=== PATIENT | male | born 1935 | race Caucasian/White ===

== ENCOUNTER 2017-03-09 08:45 | Inpatient (IN) ==
[2017-03-09] MEDS ORDERED: CLINDAMYCIN INJ 600 MG in PREMIX 1 EACH IV STA (09:32)
[2017-03-09] MEDS ORDERED: methylPREDNISolone SOD SUC 125 MG/2 ML VIAL IV STA (09:32)
[2017-03-09] MEDS ORDERED: ONDANSETRON 4 MG/2 ML VIAL IV STA (09:32)
[2017-03-09] MEDS ORDERED: LACTATED RINGERS 1,000 ML IV ONE (09:32)
[2017-03-09] MEDS ORDERED: DILTIAZEM 50 MG/10 ML VIAL IV STA (09:32)
[2017-03-09] MEDS ORDERED: PANTOPRAZOLE 40 MG VIAL IV STA (09:37)
[2017-03-09] MEDS ORDERED: LEVALBUTEROL 0.63 MG/3 ML NEB RESP TX STA (09:37)
--- NOTE | 2017-03-09 09:37 | EKG Report ---
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
[2017-03-09 09:48] LABS: Basophils % 0.2 % (0.0-0.8); Eosinophils % 0.1 % (0.00-10.9); Hematocrit 29.5 VOL% (42.0-52.0); Hemoglobin 9.4 GM/DL (14.0-18.0); Immature Granulocytes % 0.9 %; Immature Granulocytes Absolute 0.09 #; Lymphocytes # 1.2 10*3/uL (1.4-4.0); Lymphocytes % 12.2 % (21.2-54.2); Mean Corpuscular HGB Conc 31.9 GM/DL (32-36); Mean Corpuscular Hemoglobin 29 PG (27-34); Mean Corpuscular Volume 90.2 FL (87-102); Mean Platelet Volume 11.6 FL (9.6-12.0); Monocytes # 1.1 10*3/uL (0.11-0.8); Monocytes % 10.7 % (1.7-12.7); NRBC # 0.12 10*3/uL; Neutrophils # 7.7 10*3/uL (1.4-7.4); Neutrophils % 75.9 % (38.7-73.9); Platelet Count 258 T/CUMM (130-400); Red Blood Count 3.27 MC/CUMM (3.8-5.5); Red Cell Distribution Width 17.1 % (9.3-17.3); White Blood Count 10.1 T/CUMM (4-12)
--- NOTE | 2017-03-09 09:49 | Emergency Department Note ---
Yuriy Barajas Hilary, am scribing for, and in the presence of, Ramone Sun MD 09:40. Corinne Barajas Charles R, MD, personally performed the services described in this documentation, ascribed by Sindhu Yan in my presence, and it is both accurate and complete . Arrival - Arrival Chief Complaint: Shortness of Breath Stated Complaint: chest pain/ca pt ED Nursing Triage Note: chest pain with SOB - rapid heart rate onset yesterday - pt was sent from [facility] center - pt was there for radaition for throat CA this am and was sent to ER for evaluation Mode of Arrival: Wheelchair Limitations: No Limitations Source: Patient, Significant other (), RN Notes Reviewed Time Seen by Provider: 03/09/17 09:22 - History of Present Illness HPI Narrative: Pt is a 81 y/o black male presenting to the ED with c/o SOB which onset around 1700 lastnight. Pts confirms upper epigastric pain, nausea, melena and SOB. Pts said he had a Heart attack in April and had a stent put in, he also has a peg tube and esophageal cancer. No other complaints or problems stated in the ED. Onset (ago): day(s) Allergies/Adverse Reactions: Allergies Allergy/AdvReac Type Severity Reaction Status Date / Time No Known Allergies Allergy Verified 02/25/16 10:37 Home Medications: Home Medications Medication Instructions Recorded Confirmed Type Aspirin EC Tab 81 mg PO DAILY #30 tablet 04/27/16 01/30/17 Rx Metoprolol Tartrate Tab [Lopressor 25 mg PO BID #60 tablet 04/27/16 01/30/17 Rx Tab] Ticagrelor [Brilinta] 90 mg PO BID #60 tablet 04/27/16 01/30/17 Rx Cilostazol 50 mg PO BID 01/30/17 01/30/17 History Review of System - Review of System 12 point system: reviewed and no additional remarkable complaints except as stated - Review of System Constitutional: Absent: fever Cardiovascular: Absent: chest pain Gastrointestinal: Present: abdominal pain, nausea, melena Medical,Surgical,& Family Hx - Medical History Cardio: History of: CAD, [place] (04/25/16 with Synergy stents to the RCA X 2), PVD ( left BKA) HEENT: History of: Oral Cancer (pharyngeal) Endocrine: History of: Dyslipidemia Respiratory: History of: Respiratory Problems (Throat CA with occasional throat edema from radiation) Musculoskeletal: History of: Amputation (LEFT ABOVE KNEE), Musculoskeletal Problems (Left AKA) Hematology: No history of: Blood Transfusion Reaction Other: History of: Cancer (Throat) - Surgical History Cardiac Surgeries: Sugical HX of: Cardiac Catheterization (04/25/16) Thoracic Surgeries: Patient denies;: Organ Transplant, Lobectomy Abdominal Surgeries: Surgical HX of: Hernia Repair Orthopedic Surgeries: Surgical HX of;: Total Hip Replacement (RIGHT) - Family History Family History: Reports;: Family Cancer (Brother with pancreatic), Family Hypertension (Sister) Denies;: Family Anesthesia Reaction, Family Diabetes, Family Heart Disease, Family Psychiatric Problems, Family Stroke - Social History Smoking Status: Never smoker Frequency of Alcohol Use: None Type of Drug Use: None Exam Vital Signs: Vital Signs Temperature 98.0 F 03/09/17 08:55 Pulse Rate 129 H 03/09/17 10:15 Respiratory Rate 24 03/09/17 10:15 Blood Pressure 124/64 03/09/17 10:15 O2 Sat by Pulse Oximetry 100 03/09/17 10:15 - General General appearance: alert (Toxic, ill appearing), lethargic, cachectic, other - Head Head exam: Present: atraumatic, normocephalic - Eye Eye exam: Absent: normal appearance (Sunken orbitals, Pale conjuctival) - ENT ENT exam: Present: mucous membranes dry, other (Poor Dentation). Absent: mucous membranes moist - Neck Neck exam: Present: full ROM, trachea midline, other (JVD Distention). Absent: tenderness - Chest Chest inspection: Present: symmetric chest wall rise. Absent: tenderness - Respiratory Respiratory exam: Present: rhonchi (Bilateral Rhonci) - Cardiovascular Cardiovascular exam: Present: tachycardia, irregular rhythm - Abdominal Exam Abdominal exam: Present: soft, distention (Bloated), tenderness (Epigastric tenderness), diminished bowel sounds, other (Peg tube has coffee ground emesis in it) - Rectal Exam Rectal exam: Present: normal rectal tone (Fair rectal tone), heme (+) stool - Extremities Exam Extremities exam: Present: full ROM (Has a left AKA). Absent: tenderness - Back Exam Back exam: Present: full ROM. Absent: tenderness - Neurological Exam Neurological exam: Present: alert, oriented X3, CN II-XII intact. Absent: motor sensory deficit - Psychiatric Psychiatric exam: Present: normal affect, normal mood - Skin Skin exam: Present: warm, dry, intact, normal color. Absent: rash Course - Reevaluation(s) Reevaluation #1: Patient has actually done better with fluid hydration Time: 10:47 - Consultations Consultation #1: Dr. Unger will admit the patient. He said not to place patient in the ICU he will take care of him on the oncology floor Time: 10:47 Results - Labs CBC & BMP: 03/09/17 09:31 03/09/17 09:31 Lab Results: I have reviewed the patients labs Labs: Laboratory Tests 03/09/17 03/09/17 09:31 09:31 WBC 10.1 RBC 3.27 L Hgb 9.4 L Hct 29.5 L MCHC 31.9 L Neut % (Auto) 75.9 H Lymph % (Auto) 12.2 L Neut # (Auto) 7.7 H Lymph # (Auto) 1.2 L [place] # (Auto) 1.1 H Urine Color Yellow Urine Appearance Clear Urine Urobilinogen < 2.0 H Laboratory Tests 03/09/17 10:05 ABG pH 7.487 H ABG pCO2 23.6 L ABG pO2 147.0 H ABG Total CO2 16.8 L ABG Base Excess -4.6 L Disposition Clinical Impression: Laryngeal cancer, Hypernatremia, Acute dehydration, Acute dyspnea, COPD ( chronic obstructive pulmonary disease), Failure to thrive, GI bleed, Anemia, Acute blood loss anemia, Coronary artery disease, Chest pain, PVD (peripheral vascular disease) Case discussed with: patient, patient's family Disposition: Still a Patient Condition: Guarded Time of Disposition: 10:47
[2017-03-09] MEDS ORDERED: methylPREDNISolone SOD SUC 125 MG/2 ML VIAL ONE (09:50)
[2017-03-09] MEDS ORDERED: ONDANSETRON 4 MG/2 ML VIAL ONE (09:50)
[2017-03-09] MEDS ORDERED: PANTOPRAZOLE 40 MG VIAL IV ONE (09:50)
[2017-03-09] MEDS ORDERED: DILTIAZEM 50 MG/10 ML VIAL IV ONE (09:50)
[2017-03-09 09:53] LABS: Apearance,Urine CLEAR (Clear); Bilirubin,Urine Negative (Negative); Blood, Urine Small mg/dL (Negative); Glucose,Urine (UA) Negative (Negative); Ketones,Urine Negative (Negative); Nitrite,Urine Negative (Negative); Protein,Urine Negative; RBC,Urine 3 /HPF (0-4); Urine Color Yellow (Yellow); Urine Specific Gravity 1.013 (1.001-1.035); Urine Urobilinogen < 2.0 EU/DL (0.2-1.0); WBC,Urine 2 /HPF (0-6)
[2017-03-09 09:56] LABS: PT Patient Result 10.9 SECS
[2017-03-09 10:15] LABS: ABG Base Excess -4.6 MMOL/L (-2.5-2.5); ABG HCO3 20.6 MMOL/L (20-26); ABG Oxygen Saturation 99.3 % (95-100); ABG PCO2 23.6 MM HG (35-48); ABG PH 7.487 (7.35-7.45); ABG TCO2 16.8 MMOL/L (23-27)
[2017-03-09 10:18] LABS: Band Neutrophils 1 % (0-10); Hypochromasia 1+; Lymphocytes 15 % (20-55); Ovalocytes Slight; Platelet Estimate Adequate; Segmented Neutrophils 81 % (50-85); Total Cells Counted 100
[2017-03-09 10:19] LABS: Microcytosis Slight
--- NOTE | 2017-03-09 10:21 | XRay Report ---
XR abdomen complete w decub Indication: Epigastric abdominal pain. Comparison: None. Technique: Supine AP abdomen as well as left lateral decubitus image of the abdomen was submitted. Findings: Lung bases are clear. No free intraperitoneal air is suggested. No organomegaly suggested. The bowel gas pattern demonstrates no evidence of acute pathology. Bones and soft tissues demonstrate no evidence of acute pathology. Gastrostomy tube is present. Previous right hip arthroplasty is demonstrated. Iliac artery stent is present on the right. Moderately advanced degenerative changes of the left femoral acetabular joint are present. Renal vascular calcifications are suggested bilaterally. Impression: 1. No active process is demonstrated within the abdomen or pelvis. Other findings as detailed. 03/09/2017 10:17 AM PROCEDURE INTERPRETED AT [facility] DEPARTMENT OF RADIOLOGY Final Report Signed by: Dr. Mich Manuel
--- NOTE | 2017-03-09 10:21 | XRay Report ---
XR chest 1V Indication: Shortness of breath Comparison: Chest x-ray 02/13/2017 Technique: Portable AP chest was performed. Findings: The heart size appears normal in size, stable. Right-sided venous access device is stable. The mediastinal contour and hilar structures demonstrate no significant abnormalities. Lungs demonstrate interval partial clearing of the left as well as right lung base. Minimal residual stranding overlying the mid left hemidiaphragm is nonspecific. Lungs otherwise are clear. Bones and soft tissues demonstrate no evidence of acute pathology. Impression: 1. Improved appearance of the left lung base. Interval partial clearing additionally on the right is demonstrated. 03/09/2017 10:18 AM PROCEDURE INTERPRETED AT [facility] DEPARTMENT OF RADIOLOGY Final Report Signed by: Dr. Mich Manuel
[2017-03-09 10:25] LABS: Lactic Acid 5.5 MMOL/L (0.4-2.0)
[2017-03-09 10:27] LABS: Alanine Aminotransferase 44 U/L (16-61); Albumin 2.6 G/DL (3.4-5.0); Alkaline Phosphatase 69 U/L (45-117); Aspartate Amino Transferase 31 U/L (0-37); Bilirubin,Total < 0.39 MG/DL (0.2-1.0); Blood Urea Nitrogen 130 MG/DL (7-18); Calcium 9.5 MG/DL (8.5-10.1); Glucose 229 MG/DL (74-106); Magnesium 2.7 MG/DL (1.8-2.4); Osmolality,Calculated 347.9 MOS/KG (273-304); Potassium 4.9 MMOL/L (3.5-5.1); Sodium 151 MMOL/L (136-145); Total Protein 6.8 G/DL (6.4-8.3); Troponin I Only 0.033 NG/ML (0.00-0.045)
[2017-03-09] MEDS ORDERED: CLINDAMYCIN INJ 50 ML IV ONE (11:57)
[2017-03-09] MEDS ORDERED: chlorproMAZINE INJ 25 MG in SODIUM CHLORIDE 0.9% 100 ML IV PRN (12:39)
[2017-03-09] MEDS ORDERED: TEMAZEPAM 7.5 MG CAPSULE PO PRN (12:39)
[2017-03-09] MEDS ORDERED: ACETAMINOPHEN 325 MG TABLET PO PRN (12:39)
[2017-03-09] MEDS ORDERED: MYLANTA/LIDO VISC 2:1 300 ML BOTTLE SWISH/SPIT PRN (12:39)
[2017-03-09] MEDS ORDERED: chlorproMAZINE 25 MG TABLET PO PRN (12:39)
[2017-03-09] MEDS ORDERED: SODIUM CHLORIDE 0.9% 1,000 ML IV SCH (12:39)
[2017-03-09] MEDS ORDERED: LACTULOSE 20 GM/30 ML UDCUP PO PRN (12:39)
[2017-03-09] MEDS ORDERED: LOPERAMIDE 2 MG CAPSULE PO PRN ×2 (12:39)
[2017-03-09] MEDS ORDERED: PROMETHAZINE INJ 25 MG in SODIUM CHLORIDE 0.9% 50 ML IV PRN (12:39)
[2017-03-09] MEDS ORDERED: ALUMINUM/MAGNES/SIMETH MAX STR 30 ML UDCUP PO PRN (12:39)
[2017-03-09] MEDS ORDERED: BENZTROPINE 2 MG/2 ML AMP IV PRN (12:39)
[2017-03-09] MEDS ORDERED: ONDANSETRON 4 MG/2 ML VIAL IV PRN (12:39)
[2017-03-09] MEDS ORDERED: MAGNESIUM HYDROXIDE SUSP 30 ML UDCUP PO PRN (12:39)
[2017-03-09] MEDS ORDERED: traMADol 50 MG TABLET PO PRN (12:39)
[2017-03-09] MEDS ORDERED: chlorproMAZINE INJ 50 MG in SODIUM CHLORIDE 0.9% 100 ML IV PRN (12:39)
[2017-03-09] MEDS ORDERED: ALBUTEROL/IPRATROPIUM 3 ML NEB RESP TX PRN (12:39)
[2017-03-09] MEDS ORDERED: MYLANTA/LIDO VISC 2:1 300 ML BOTTLE SWISH/SWAL PRN (12:39)
[2017-03-09] MEDS ORDERED: diphenhydrAMINE CAP 25 MG CAPSULE PO PRN (12:39)
[2017-03-09] MEDS ORDERED: ALPRAZolam 0.25 MG TABLET PO PRN (12:39)
[2017-03-09] MEDS ORDERED: guaiFENesin 200 MG/10 ML UDCUP PO PRN (12:39)
--- NOTE | 2017-03-09 13:21 | EKG Report ---
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
[2017-03-09] MEDS ORDERED: GLUCAGON 1 MG VIAL IM PRN (14:35)
[2017-03-09] MEDS ORDERED: DEXTROSE 50% 25 GM/50 ML VIAL IV PRN (14:35)
[2017-03-09 14:50] LABS: Alanine Aminotransferase 40 U/L (16-61); Albumin 2.5 G/DL (3.4-5.0); Alkaline Phosphatase 62 U/L (45-117); Aspartate Amino Transferase 27 U/L (0-37); Bilirubin,Total < 0.39 MG/DL (0.2-1.0); Blood Urea Nitrogen 126 MG/DL (7-18); Calcium 9.2 MG/DL (8.5-10.1); Glucose 137 MG/DL (74-106); Magnesium 2.7 MG/DL (1.8-2.4); Osmolality,Calculated 343.7 MOS/KG (273-304); Potassium 5.3 MMOL/L (3.5-5.1); Sodium 152 MMOL/L (136-145); Total Protein 6.5 G/DL (6.4-8.3); Troponin I Only 0.042 NG/ML (0.00-0.045); Uric Acid 9.6 MG/DL (3.5-7.2)
[2017-03-09 14:59] LABS: Basophils % 0.1 % (0.0-0.8); Hematocrit 20.2 VOL% (42.0-52.0); Immature Granulocytes % 1.1 %; Immature Granulocytes Absolute 0.14 #; Lymphocytes # 0.7 10*3/uL (1.4-4.0); Lymphocytes % 5.6 % (21.2-54.2); Mean Corpuscular HGB Conc 31.7 GM/DL (32-36); Mean Corpuscular Hemoglobin 29 PG (27-34); Mean Platelet Volume 11.2 FL (9.6-12.0); Monocytes # 0.3 10*3/uL (0.11-0.8); Monocytes % 2.7 % (1.7-12.7); NRBC # 0.12 10*3/uL; Neutrophils # 11.2 10*3/uL (1.4-7.4); Neutrophils % 90.5 % (38.7-73.9); Platelet Count 259 T/CUMM (130-400); Red Blood Count 2.22 MC/CUMM (3.8-5.5); Red Cell Distribution Width 16.9 % (9.3-17.3); White Blood Count 12.3 T/CUMM (4-12)
[2017-03-09 15:09] LABS: Hemoglobin 6.4 GM/DL (14.0-18.0)
--- NOTE | 2017-03-09 16:00 | Oncology History&Physical ---
History of Present Illness History of present illness: Mr. Krueger is a 81 year old male admitted with renal failure and severe symptomatic anemia complicating laryngeal Ca. 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 He has been on cis-eyak, Taxotere and 5-FU which were given on or about January 26. He presented to the emergency room today with acute renal failure and mild leukopenia. He should have been on this for by now and he is not. He received chemotherapy last week consisting of Taxotere, 5-FU and cis- eyak. The dose is included: Taxotere 135 mg IV on day 1 Cis-eyak 135 mg IV on day 1 5-FU 1350 mg IV over 22 hours daily for 3 consecutive days. When he was admitted in January of this year I made the decision to discontinue chemotherapy and proceed to radiation. He is currently receiving radiation therapy. Prior to institution of chemotherapy his serum creatinine was 0.8. It worsened with his first dose of chemotherapy and this was 1 of the reasons why discontinued chemotherapy and went to radiation. The other reason was that he had extremely severe stomatitis and I did not think that he would benefit from further chemotherapy. Past medical history: Allergies: He has no known allergies. Additional past medical history includes a history of bladder cancer, myocardial infarction in April 2016, GERD and hyperlipidemia. He has had previous radiation also. Past medical history is positive for laryngeal cancer and cancer of the vocal cords. He was initially diagnosed as having laryngeal cancer in February 2000 from a biopsy of his vocal cord. 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 He did not have a biopsy of this recurrence. Clinically it was recurrent cancer according to Dr. Murray. I presented his case to tumor board. We had a Mediport catheter placed and he was started on the chemotherapy of mentioned. Social history: He smokes a pack of cigarettes daily. He is . Family history is positive for pancreatitis and his brother but negative for pancreatic cancer.. Review of systems: Constitutional: Negative for fever or chills. HEENT: Positive review of systems includes a history of recent onset of dysphagia and odynophagia as well as hoarseness. He already had dysphagia and odynophagia with these worsened. Eyes: Positive for cataract surgery bilaterally. Pulmonary: Positive for COPD and cough without hemoptysis. Cardiovascular: Positive for myocardial infarct and coronary bypass GI: Negative for hepatitis or liver or pancreatic disease. No history of GI malignancies or upper or lower GI bleed. : Negative for kidney stones or kidney infections or hematuria. Musculoskeletal: No history of significant arthritis but the patient has undergone an [id number] amputation of the left leg. Neurologic: Negative for seizures, cold convulsions or paralysis. Hematologic: Negative for blood dyscrasias, bleeding disorders, anemia or leukemia. Lymphatic: Negative for primary lymphatic malignancy or chronically or acutely enlarged lymph nodes. Psychiatric: Negative for acute psychoses or psychiatric illness. Physical examination: General: The patient is acutely and chronically ill. Eyes: Normal lids and conjunctivae. ENT: His oral mucosa is slightly atrophic but no longer raw. His dentition is extremely poor. Most of his teeth are missing. His trachea is midline. He has no hearing deficit. Neck: Thyroid normal. Trachea normal. Pulmonary: Breath sounds are coarse throughout without rubs, rales or rhonchi. There is symmetrical unlabored chest motion with respiration. Cardiovascular: His heart rhythm is regular without murmur, gallop or rub. He has tachycardia without irregular rhythm. There is no jugular venous distention , clubbing or cyanosis. Abdomen. He has a PEG tube in place that has coffee grounds in it. There is no ascites and I palpate no masses. There is only moderate to mild tenderness without distention. Musculoskeletal: He has arthritis in his hands without focal muscle atrophy or bone or joint deformity. He has severe generalized muscle weakness. Neurologic: Cranial nerves II through XII are intact. There are no focal neurologic deficits. Psychiatric: He has not been fully oriented for quite some time but I does find no agitation or severe confusion or combativeness. Impression: #1: Acute renal failure due to acute dehydration #2: Severe anemia requiring blood transfusion #3: Laryngeal carcinoma #4: Prior history of laryngeal carcinoma that was probably is not the same tumor. #5: COPD #6:Coronary artery disease post CABG #7: Prolonged prothrombin time during last admission probably due to vitamin K deficiency #8: Emaciation, cachexia and malnutrition #9: Hypomagnesemia by history Home Medications Medication Instructions Recorded Confirmed Type Aspirin EC Tab 81 mg PO DAILY #30 tablet 04/27/16 03/09/17 Rx Metoprolol Tartrate Tab [Lopressor 25 mg PO BID #60 tablet 04/27/16 03/09/17 Rx Tab] Ticagrelor [Brilinta] 90 mg PO BID #60 tablet 04/27/16 03/09/17 Rx Cilostazol 50 mg PO BID 01/30/17 03/09/17 History Allergies Allergy/AdvReac Type Severity Reaction Status Date / Time No Known Allergies Allergy Verified 02/25/16 10:37 Medical,Surgical,& Family Hx - Medical History Cardio: History of: CAD, [place] (04/25/16 with Synergy stents to the RCA X 2), PVD ( left BKA) HEENT: History of: Oral Cancer (pharyngeal) Endocrine: History of: Dyslipidemia Respiratory: History of: Respiratory Problems (Throat CA with occasional throat edema from radiation) Musculoskeletal: History of: Amputation (LEFT ABOVE KNEE), Musculoskeletal Problems (Left AKA) Hematology: No history of: Blood Transfusion Reaction Other: History of: Cancer (Throat) - Surgical History Cardiac Surgeries: Sugical HX of: Cardiac Catheterization (04/25/16) Thoracic Surgeries: Patient denies;: Organ Transplant, Lobectomy Abdominal Surgeries: Surgical HX of: Hernia Repair Orthopedic Surgeries: Surgical HX of;: Total Hip Replacement (RIGHT) - Family History Family History: Reports;: Family Cancer (Brother with pancreatic), Family Hypertension (Sister) Denies;: Family Anesthesia Reaction, Family Diabetes, Family Heart Disease, Family Psychiatric Problems, Family Stroke - Social History Smoking Status: Former smoker Frequency of Alcohol Use: None Type of Drug Use: None Exam - Constitutional Vitals: Period Temp Pulse Resp BP Sys/Keith Pulse Ox Last 24 Hr 97.0 F 139 20 109/65 93 Results - Labs CBC & BMP: 03/09/17 14:47 03/09/17 13:40 Quality Measures - VTE Contraindication to Pharmacological VTE Prophylaxis: Active Bleeding
[2017-03-09] MEDS: DEXT 5% NACL 0.45% KCL 20 MEQ 20 MEQ/1,000 ML BAG IV SCH (17:07)
[2017-03-09] MEDS: ASPIRIN EC 81 MG TABLET PO SCH (17:10)
[2017-03-09] MEDS: methylPREDNISolone SOD SUC 40 MG/1 ML VIAL IV SCH (17:10)
[2017-03-09 17:24] LABS: Band Neutrophils 2 % (0-10); Lymphocytes 3 % (20-55); Platelet Estimate Normal; Segmented Neutrophils 92 % (50-85); Total Cells Counted 100
[2017-03-09] MEDS ORDERED: METOPROLOL TARTRATE 25 MG TABLET PO SCH (21:00)
[2017-03-09] MEDS ORDERED: CILOSTAZOL 50 MG TABLET PO SCH (21:00)
[2017-03-09] MEDS ORDERED: TICAGRELOR 90 MG TABLET PO SCH (21:00)
[2017-03-09] MEDS: CILOSTAZOL 50 MG TABLET PO SCH (22:27)
[2017-03-09] MEDS: METOPROLOL TARTRATE 25 MG TABLET PO SCH (22:27)
[2017-03-09] MEDS: TICAGRELOR 90 MG TABLET PO SCH (22:27)
[2017-03-10] MEDS: methylPREDNISolone SOD SUC 40 MG/1 ML VIAL IV SCH ×3 (02:36→17:38)
[2017-03-10] MEDS: DEXT 5% NACL 0.45% KCL 20 MEQ 20 MEQ/1,000 ML BAG IV SCH ×5 (05:40→18:56)
[2017-03-10 07:03] LABS: Basophils % 0.1 % (0.0-0.8); Hematocrit 31.7 VOL% (42.0-52.0); Immature Granulocytes % 1.9 %; Immature Granulocytes Absolute 0.22 #; Lymphocytes # 0.7 10*3/uL (1.4-4.0); Lymphocytes % 6.3 % (21.2-54.2); Mean Corpuscular HGB Conc 32.5 GM/DL (32-36); Mean Corpuscular Hemoglobin 29 PG (27-34); Mean Platelet Volume 11.8 FL (9.6-12.0); Monocytes # 0.6 10*3/uL (0.11-0.8); NRBC # 0.35 10*3/uL; Neutrophils # 10.1 10*3/uL (1.4-7.4); Neutrophils % 86.7 % (38.7-73.9); Platelet Count 220 T/CUMM (130-400); Red Cell Distribution Width 16.7 % (9.3-17.3); White Blood Count 11.6 T/CUMM (4-12)
[2017-03-10 07:15] LABS: PT Patient Result 10.9 SECS
--- NOTE | 2017-03-10 07:19 | XRay Report ---
XR chest 1V portable Indication: Shortness of breath Comparison: Chest x-ray 03/09/2017 Technique: Portable AP chest was performed. Findings: The heart size appears within normal limits. Right-sided venous access device is stable. The mediastinal contour and hilar structures demonstrate no significant abnormalities. Minimal interstitial stranding overlying the left hemidiaphragm is nonspecific in appearance and may in part reflect atelectasis or scarring. Minimal elevation of the left hemidiaphragm is present. Bones and soft tissues demonstrate no evidence of acute pathology. Mild scoliotic deformity of the thoracic spine is stable. Impression: 1. No evidence of acute pathology. 03/10/2017 7:16 AM PROCEDURE INTERPRETED AT [facility] DEPARTMENT OF RADIOLOGY Final Report Signed by: Dr. Mich Manuel
[2017-03-10 07:20] LABS: Hemoglobin 10.3 GM/DL (14.0-18.0); Red Blood Count 3.56 MC/CUMM (3.8-5.5)
--- NOTE | 2017-03-10 07:22 | Oncology Progress Note ---
Oncology Subjective PN Interval history: Mr. Krueger was admitted with dehydration, anemia and worsening renal failure due to poor oral intake as result of laryngeal carcinoma for which she is currently undergoing radiation therapy. He received blood transfusions yesterday. His CBC this morning includes a white cell count of 11,600 with a hemoglobin of 10.3 and a platelet count of 220,000. I will order comprehensive metabolic profile this morning. It is now. We checked pro time this morning and it is normal. I am still awaiting return of the comprehensive metabolic profile today. Lab work today includes a serum creatinine of 2.9 which is actually slightly higher than it was on admission. His urea nitrogen level is 132 is well. We are hydrating him aggressively. His sodium is 154 with a potassium is slightly high at 5.2. His hemoglobin is 10.3 today after transfusion. I think of already mentioned this. He has a normal white cell count and normal platelet count. We will pick radiation therapy up today. We will continue hydration through the weekend and hope to discharge him next week. His PEG tube contains coffee-ground emesis and I am consulted GI. On physical examination his lungs are clear. His heart sounds are normal. His voice is hoarse. He has no abdominal distention but the PEG tube still has coffee-ground emesis. Cranial nerves II through XII are intact. I failed to mention on his admission that he has a left AKA amputation. Exam - Constitutional Vitals: Period Temp Pulse Resp BP Sys/Keith Pulse Ox Last 24 Hr 96.7 F-99 F 107-139 16-20 109-162/57-80 93-99 Results - Labs CBC & BMP: 03/10/17 06:07 03/10/17 06:07 Quality Measures - VTE Contraindication to Pharmacological VTE Prophylaxis: Active Bleeding
[2017-03-10 07:39] LABS: Calcium 9.4 MG/DL (8.5-10.1); Magnesium 2.6 MG/DL (1.8-2.4); Osmolality,Calculated 350.6 MOS/KG (273-304); Phosphorous 3.7 MG/DL (2.5-4.9); Potassium 5.3 MMOL/L (3.5-5.1); Prealbumin 30.2 MG/DL (20-40)
[2017-03-10 07:41] LABS: Albumin 2.6 G/DL (3.4-5.0); Bilirubin,Total 0.6 MG/DL (0.2-1.0); Calcium 9.3 MG/DL (8.5-10.1); Osmolality,Calculated 352.4 MOS/KG (273-304); Potassium 5.2 MMOL/L (3.5-5.1); Total Protein 6.3 G/DL (6.4-8.3)
[2017-03-10 07:42] LABS: Band Neutrophils 8 % (0-10); Hypochromasia 1+; Lymphocytes 4 % (20-55); Platelet Estimate Adequate; Polychromasia Slight; Segmented Neutrophils 85 % (50-85); Total Cells Counted 100
[2017-03-10] MEDS ORDERED: ASPIRIN EC 81 MG TABLET PO SCH (09:00)
--- NOTE | 2017-03-10 09:13 | Gastrointestinal Consult Note ---
<Jailene Mart - Last Filed: 03/10/17 09:07> Assessment and Plan (1) Anemia Status: Acute Assessment and plan: 03/10-Findings on admission of anemia with reports of melena, dark gastric fluid from PEG, weakness. Findings of hemoglobin 6.4. EGD last month findings noted with erosive esophagitis and acute bulbar duodenitis. Received 3 units PRBC, Hgb now 10. Unable to proceed with EGD at present due to hypernatremia/ hyperkalemia. Monitor serial HH, check stool for occult blood. Hold NPO monday night for tentative EGD Monday if pt remains stable. Plan and addendum to follow by Dr Burciaga. Current Visit: Yes History of Present Illness Chief complaint: Anemia History of present illness: Mr. Krueger is a 81 year old male who presented to the hospital with complaints of weakness and generally not feeling well. Patient has a history of laryngeal cancer and is followed by Dr. Unger for this. Until last month he was undergoing chemotherapy however this has been discontinued and he is currently undergoing radiation therapy daily. Patient was seen in our facility last month for failure to thrive and dysphagia. He was seen by Dr. Burciaga and had a PEG tube placed for nutritional support. Patient states upon discharge she is done well with his PEG tube and is tolerating his feedings well. PEG tube site assessed without any redness drainage irritation noted. Patient was concerned because the gastric secretions and his PEG tube have changed colors recently. He is noted to have some very dark red gastric drainage. He also states for the last several days he started to notice some dark tarry stools. On his EGD last month he was found at that time to have esophagitis as well as acute bulbar duodenitis. Patient denies any changes in his abdominal/ epigastric discomfort. He was noted on admission to have a hemoglobin of 9.4 however upon recheck he had dropped to 6.4. He is received a total of 3 units of blood and hemoglobin is currently holding at 10.3. BUN/creatinine ratio is 45. His platelet count is stable at 220. MCV 89. Creatinine is elevated at 2.9. He is also noted to be hypernatremic at 154 as well as hyperkalemic at 5.2. Patient denies any nausea vomiting fever or chills. Patient states he believes he has had a colonoscopy in the past but cannot recall we are the findings of this. Noted on discharge on 02/23 his hemoglobin was 8.9 Home Medications Medication Instructions Recorded Confirmed Type Aspirin EC Tab 81 mg PO DAILY #30 tablet 04/27/16 03/09/17 Rx Metoprolol Tartrate Tab [Lopressor 25 mg PO BID #60 tablet 04/27/16 03/09/17 Rx Tab] Ticagrelor [Brilinta] 90 mg PO BID #60 tablet 04/27/16 03/09/17 Rx Cilostazol 50 mg PO BID 01/30/17 03/09/17 History Allergies Allergy/AdvReac Type Severity Reaction Status Date / Time No Known Allergies Allergy Verified 02/25/16 10:37 Medical,Surgical,& Family Hx - Medical History Cardio: History of: CAD, [place] (04/25/16 with Synergy stents to the RCA X 2), PVD ( left BKA) HEENT: History of: Oral Cancer (pharyngeal) Endocrine: History of: Dyslipidemia Respiratory: History of: Respiratory Problems (Throat CA with occasional throat edema from radiation) Musculoskeletal: History of: Amputation (LEFT ABOVE KNEE), Musculoskeletal Problems (Left AKA) Hematology: No history of: Blood Transfusion Reaction Other: History of: Cancer (Throat) - Surgical History Cardiac Surgeries: Sugical HX of: Cardiac Catheterization (04/25/16) Thoracic Surgeries: Patient denies;: Organ Transplant, Lobectomy Abdominal Surgeries: Surgical HX of: Hernia Repair Orthopedic Surgeries: Surgical HX of;: Total Hip Replacement (RIGHT) - Family History Family History: Reports;: Family Cancer (Brother with pancreatic), Family Hypertension (Sister) Denies;: Family Anesthesia Reaction, Family Diabetes, Family Heart Disease, Family Psychiatric Problems, Family Stroke - Social History Smoking Status: Former smoker Frequency of Alcohol Use: None Type of Drug Use: None 12 point system: reviewed and no additional remarkable complaints except as stated - Constitutional Constitutional: Present: as per HPI, weight loss - EENT Eyes: Present: as per HPI Ears: Present: as per HPI Nose, mouth and throat: Present: as per HPI, dysphagia, hoarseness, other ( Odynophagia) - Cardiovascular Cardiovascular: Present: as per HPI - Respiratory Respiratory: Present: as per HPI - Gastrointestinal Gastrointestinal: Present: as per HPI, melena - Genitourinary Genitourinary: Present: as per HPI - Musculoskeletal Musculoskeletal: Present: as per HPI - Neurological Neurological: Present: as per HPI - Psychiatric Psychiatric: Present: as per HPI - Endocrine Endocrine: Present: as per HPI - Hematologic/Lymphatic Hematologic/Lymphatic: Present: as per HPI Exam - Constitutional Vitals: Period Temp Pulse Resp BP Sys/Keith Pulse Ox Last 24 Hr 96.7 F-99 F 107-139 16-20 109-162/57-80 93-99 General appearance: no acute distress, under weight - Head Head exam: Present: normal inspection, normocephalic - Eye Eye exam: Present: other (Lids and conjunctivae unremarkable). Absent: scleral icterus - ENT ENT exam: Present: normal exam, normal oropharynx - Neck Neck exam: Present: normal inspection - Respiratory Respiratory exam: Present: clear to auscultation bilaterally. Absent: rales, rhonchi, wheezes - Cardiovascular Cardiovascular exam: Present: regular rate and rhythm. Absent: diastolic murmur , JVD, systolic murmur - GI/Abdominal GI/Abdominal exam: Present: normal bowel sounds, soft. Absent: ascites, distended, mass, organomegaly, tenderness - Extremities Exam Extremities exam: Present: normal inspection, full ROM - Back Exam Back exam: Present: normal inspection - Neurological Exam Neurological exam: Present: alert, oriented X3 - Psychiatric Psychiatric exam: Present: normal affect, normal mood - Skin Skin exam: Present: normal color, warm, dry Results - Labs CBC & BMP: 03/10/17 06:07 03/10/17 06:07 Lab Results: I have reviewed the past 24 hour labs Quality Measures - VTE Contraindication to Pharmacological VTE Prophylaxis: Active Bleeding <Nikita Burciaga - Last Filed: 03/10/17 12:46> History of Present Illness Chief complaint: 3030 History of present illness: Mr. Krueger is a 81 year old male Exam - Constitutional Vitals: Period Temp Pulse Resp BP Sys/Keith Pulse Ox Last 24 Hr 96.7 F-99 F 107-139 16-20 109-164/57-89 93-100 Results - Labs CBC & BMP: 03/10/17 06:07 03/10/17 06:07
[2017-03-10] MEDS: PANTOPRAZOLE 40 MG VIAL IV SCH ×3 (11:00→20:49)
--- NOTE | 2017-03-10 11:17 | Oncology Progress Note ---
Oncology Subjective PN Interval history: Weekend patient last for July 418: Juan Krueger: Patient admitted with acute dehydration and anemia complicating laryngeal carcinoma. He is on radiation therapy. He also has history of chronic renal failure. In addition he has coffee-ground material in his PEG tube.He is being hydrated and GI is consulted. I am letting his potassium run a little bit high. I think it will drop but if it does not, take the potassium out of his drip. 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 She does not have much of a chance of improving. She has lost function of her left lower extremity due to extensive pelvic involvement. She has a malignant related pleural effusion with a rind in her right chest. She has a chest tube in place that will need to stay through the and will deal with it Monday. I started her on Taxotere and carboplatin on a weekly basis after she failed to respond at all Adriamycin and Cytoxan and not only that, she had severe leukopenia and thrombocytopenia from it. This is a very sad case. 428: Chalino Le: This is a patient with adenocarcinoma of the lung who is admitted with pneumonia that is clearing rapidly. If the pulmonary doctors say it is okay for him to go home, he can be discharged. I have asked him to write the antibiotic prescription and prescription for any new medicines. 440: Tiffanie Day: This is a patient was just admitted with intractable nausea and vomiting. She has had a complex case, responding on 2 separate occasions to palliative chemotherapy. She has intra-abdominal metastatic disease with carcinomatosis. I am starting her on Folfiri today and will supplement it with Cyramza on Monday. She should be relatively stable through the weekend. I hope that she will not need an NG tube, but if she does, place it. She will probably need parenteral pain medication in that case. 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 I left a consult note today that she can review. There is no reason to see her over the weekend. She has been made a no code and I do not think she is going to ever receive any palliative therapy. Exam - Constitutional Vitals: Period Temp Pulse Resp BP Sys/Keith Pulse Ox Last 24 Hr 96.7 F-99 F 107-139 16-20 109-162/57-80 93-99 Results - Labs CBC & BMP: 03/10/17 06:07 03/10/17 06:07 Quality Measures - VTE Contraindication to Pharmacological VTE Prophylaxis: Active Bleeding
--- NOTE | 2017-03-10 12:50 | Operative Note ---
Date of procedure: 03/10/17 Pre-op diagnosis: Acute GI bleed Procedure: EGD 81-year-old black male with history of head neck cancer status post PEG tube placement a few weeks ago also at that time had duodenitis and esophagitis admitted now with bleeding from PEG tube and decreased hematocrit. He is now for upper endoscopy to look for active sources of bleeding. Informed consent was obtained for the patient and his . He was sedated with MAC anesthesia per anesthesia protocol. Patient placed left lateral decubitus position the Olympus flexible video upper endoscope was inserted into the oral cavity under direct vision the esophagus was intubated. Findings: Esophagus-some redundant tissue in the upper esophagus without active bleeding there is diffuse esophagitis. No obvious tumor or ulceration is identified no varices are seen. Stomach-small amount of old blood present in the stomach no areas of acute abnormality or bleeding noted to direct retroflexed views of the stomach. PEG tube is in position and were able to look around the bolster of it and do not see any significant ulceration or source of bleeding. Pylorus-normal Duodenum-normal for the bulb and duodenum to the third portion of duodenum. The procedure was terminated placed our procedure well Postop diagnosis: 1. Esophagitis-continue IV PPI treatment and monitor H&H. No endoscopically treatable lesion is identified other than diffuse esophagitis. 2. PEG tube in appropriate position without evidence of ulceration. Anesthesia: MAC Surgeon / Physician: Nikita Burciaga Estimated blood loss: none Specimens: none sent Condition: stable Disposition: post procedure unit Results - Labs CBC & BMP: 03/10/17 06:07 03/10/17 06:07 Discharge Plan - Discharge Medications No Action Aspirin EC Tab 81 mg PO DAILY #30 tablet Metoprolol Tartrate Tab [Lopressor Tab] 25 mg PO BID #60 tablet Ticagrelor [Brilinta] 90 mg PO BID #60 tablet Cilostazol 50 mg PO BID - Follow Up or Referral - Forms/Instructions
[2017-03-10] MEDS: TICAGRELOR 90 MG TABLET PO SCH ×2 (13:15→20:32)
[2017-03-10] MEDS: METOPROLOL TARTRATE 25 MG TABLET PO SCH ×2 (13:15→20:31)
[2017-03-10] MEDS: ASPIRIN EC 81 MG TABLET PO SCH (13:15)
[2017-03-10] MEDS: CILOSTAZOL 50 MG TABLET PO SCH ×2 (13:15→20:31)
--- NOTE | 2017-03-10 13:24 | Anesthesia Post-Op ---
Anesthesia Post OP - Post Ansesthetic Evaluation Patient seen in post op: Yes Resp: within normal limits CV: within normal limits Mental: within normal limits Temp: within normal limits [id number]: within normal limits Nausea and Vomiting: within normal limits Pain: within normal limits
[2017-03-10 14:24] LABS: Hematocrit 28.5 VOL% (42.0-52.0); Hemoglobin 9.2 GM/DL (14.0-18.0)
[2017-03-10 20:09] LABS: Hematocrit 26.4 VOL% (42.0-52.0); Hemoglobin 8.6 GM/DL (14.0-18.0)
--- NOTE | 2017-03-10 21:28 | Cardiology Consult Note ---
Cam Barajas April RN, am scribing for, and in the presence of, Pro Howell MD 21:24. Assessment and Plan - Time spent with patient Time spent with patient: Greater than 30 minutes (Due to assessment, planning, documentation, medication) (1) Chest pain Status: Acute Assessment and plan: Differential diagnosis would include coronary disease, ischemia related to tachycardia, GI cause, related to radiation, such as esophagitis, or musculoskeletal cause Plan/recommendation: serial EKGs Serial troponin-repeat tomorrow Treat chest wall pain-tramadol 50 mg p.o. twice daily, gabapentin 100 mg p.o. 3 times daily Change metoprolol to bisoprolol 2.5 mg p.o. twice daily. It will more likely to control his heart rate. Try to target to get his heart rate to 60-70. It may control many of his symptoms his dyspnea on exertion certainly could be due to his anemia and deconditioning. He states he cannot walk much, presumably due to orthopedic problems. other possibilities could be considered. Thank you for allowing me to participate in this patient's care Current Visit: Yes (2) Anemia Status: Acute Current Visit: Yes (3) Coronary artery disease Status: Chronic Current Visit: Yes Qualifiers: Coronary Disease-Associated Artery/Lesion type: [place] artery [place] vs. 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 Krueger is a 81 year old male who is routinely followed by Dr. Maloney with a history of CAD, [place], oral and throat cancer, and dyslipidemia. In April 2016 he had drug-eluting stents placed to the proximal RCA and the mid RCA. Other surgical history includes bilateral cataracts, PEG tube, hernia repair, right total hip replacement, and left AKA. Family history includes siblings with cancer and sister with hypertension. He reports he does not smoke, stating he quit 4 years ago. Mr. Krueger was admitted yesterday with dehydration, anemia, and worsening renal failure. He is currently receiving radiation 5 days a week for his throat cancer. Monday afternoon he became more short of breath than usual and was having chest pain and weakness. He tells me he has shortness of breath is with exertion, but he is not short of breath when sitting or lying flat. He describes his chest pain as a tightness in the center of his chest that he notices after drinking water. He rates it an 8 on a scale of 1-10, and states it is not constant but comes and goes. He can tell me no alleviators of the pain. Currently he is resting in bed in no acute distress. Oxygen use via nasal cannula, reports his breathing is about his baseline. Denies any chest pain at present. He takes Brilinta 90 mg p.o. twice daily, he tells me he has not missed any doses or been off of this medication for any reason. EKG done yesterday showed sinus tachycardia with heart rate of 130. Vital sign records show his heart rate was as high as 147 yesterday morning. He continues to be tachycardic with heart rates this morning ranging from 101-115. He takes Lopressor 25 mg p.o. twice daily his H&H yesterday was 6.4 and 20.2. He has received 3 units of blood product, this morning his H&H is 10.3 and 31.7. Potassium was 4.9 on admission, this morning it is 5.2. Magnesium is elevated at 2.6. Creatinine is elevated at 2.9. CC: Jesus Unger MD - Home Medications and Allergies Home Medications: Home Medications Medication Instructions Recorded Confirmed Type Aspirin EC Tab 81 mg PO DAILY #30 tablet 04/27/16 03/09/17 Rx Metoprolol Tartrate Tab [Lopressor 25 mg PO BID #60 tablet 04/27/16 03/09/17 Rx Tab] Ticagrelor [Brilinta] 90 mg PO BID #60 tablet 04/27/16 03/09/17 Rx Cilostazol 50 mg PO BID 01/30/17 03/09/17 History Allergies/Adverse Reactions: Allergies Allergy/AdvReac Type Severity Reaction Status Date / Time No Known Allergies Allergy Verified 02/25/16 10:37 - Constitutional Constitutional: Present: as per HPI - EENT Eyes: Present: requires corrective lense. Absent: blurry vision, loss of vision Ears: Present: decreased hearing, ear pain. Absent: tinnitus Nose, mouth and throat: Present: hoarseness, sore throat. Absent: dysphagia, epistaxis, headache(s), neck pain - Cardiovascular Cardiovascular: Present: chest pain at rest, dyspnea on exertion, lightheadedness, palpitations. Absent: diaphoresis, edema, radiating jaw, neck or arm pain, orthopnea - Respiratory Respiratory: Present: cough, dyspnea on exertion. Absent: hemoptysis, wheezing - Gastrointestinal Gastrointestinal: Present: abdominal pain, diarrhea. Absent: constipation, hematemesis, hematochezia, melena, nausea, vomiting - Genitourinary Genitourinary: Absent: dysuria, hematuria - Musculoskeletal Musculoskeletal: Present: limited range of motion, muscle weakness. Absent: back pain - Neurological Neurological: Present: abnormal gait, abnormal speech, dizziness. Absent: confusion, focal weakness, frequent falls, headache(s), syncope - Psychiatric Psychiatric: Absent: anxiety, confusion - Endocrine Endocrine: Present: fatigue - Hematologic/Lymphatic Hematologic/Lymphatic: Absent: easy bleeding, easy bruising Medical,Surgical,& Family Hx - Medical History Cardio: History of: CAD, [place] (04/25/16 with Synergy stents to the RCA X 2), PVD ( left BKA) HEENT: History of: Oral Cancer (pharyngeal) Endocrine: History of: Dyslipidemia Respiratory: History of: Respiratory Problems (Throat CA with occasional throat edema from radiation) Musculoskeletal: History of: Amputation (LEFT ABOVE KNEE) Other: History of: Cancer (Throat) - Surgical History Cardiac Surgeries: Sugical HX of: Cardiac Catheterization (04/25/16) Abdominal Surgeries: Surgical HX of: Hernia Repair Orthopedic Surgeries: Surgical HX of;: Orthopedic Surgery (Left AKA), Total Hip Replacement (RIGHT) - Family History Family History: Reports;: Family Cancer (Siblings), Family Hypertension (Sister) - Social History Smoking Status: Former smoker (Quit 4 years ago) Have you smoked in the last 12 months: No Frequency of Alcohol Use: None Type of Drug Use: None Marital Status: Lives With:: Spouse Functional capacity: uses cane/walker (Prosthesis) Physical Examination Vital Signs Temp Pulse Resp BP Pulse Ox 98.0 F 147 H 20 89/49 98 03/09/17 08:55 03/09/17 08:55 03/09/17 08:55 03/09/17 08:55 03/09/17 08:55 General: Present: No Apparent Distress, Other (Ill-appearing) HEENT: Present: PERRL, Mucus Membranes Moist, Other (Poor dentition) Neck: Present: Supple Neck, Midline Trachea, No Bruit Cardiac: Present: Regular Rhythm, Tachycardia Lungs: Present: Scattered Rhonchi, Oxygen (Via nasal cannula), No Wheezes, No Rales Neuro: Absent: Resting Tremor, Essential Tremor Abdomen: Present: Soft, Active Bowel Sounds, Tender, Other (PEG tube). Absent: Distended Skin: Absent: Rash, Wound Gait: Present: Poor Gait Extremities: Present: No Edema, Normal Upper Extr. Pulses. Absent: Normal Gait , Normal Lower Extr. Pulses (Weak right lower extremity pulse) Result/EKG - Labs CBC & BMP: 03/10/17 20:00 03/10/17 06:07 Lab Results: I have reviewed the past 24 hour labs Labs: Laboratory Results - last 24 hr 03/09/17 03/09/17 03/09/17 13:40 13:40 14:47 WBC 12.3 H RBC 2.22 L D Hgb 6.4 L* D Hct 20.2 L MCV 91.0 MCH 29 MCHC 31.7 L RDW 16.9 Plt Count 259 MPV 11.2 Neut % (Auto) 90.5 H Lymph % (Auto) 5.6 L [place] % (Auto) 2.7 Eos % (Auto) 0.0 Baso % (Auto) 0.1 Neut # (Auto) 11.2 H Lymph # (Auto) 0.7 L [place] # (Auto) 0.3 Eos # (Auto) 0.0 Baso # (Auto) 0.0 Total Counted 100 Immature Gran % 1.1 Nucleated RBC % 1.0 Immature Gran # 0.14 Segmented Neutrophils 92 H Band Neutrophils 2 Lymphocytes 3 L Monocytes 3 Nucleated RBCs # 0.12 Platelet Estimate Normal Polychromasia Hypochromasia INR PT Patient/Control Mix Sodium 152 H Potassium 5.3 H Chloride 120 H Carbon Dioxide 23 Anion Gap 14.3 BUN 126 H Creatinine 2.70 H GFR Calculation 22 BUN/Creatinine Ratio 46.00 H Glucose 137 H Calculated Osmolality 343.7 H Uric Acid 9.6 H Calcium 9.2 Phosphorus Magnesium 2.7 H Total Bilirubin < 0.39 AST 27 ALT 40 Alkaline Phosphatase 62 Lactate Dehydrogenase 174 Total Creatine Kinase 23 L CK-MB (CK-2) 1.2 Troponin I 0.042 Total Protein 6.5 Albumin 2.5 L Globulin 4.0 H Albumin/Globulin Ratio 0.6 L Prealbumin 03/10/17 03/10/17 03/10/17 06:07 06:07 06:07 WBC RBC Hgb Hct MCV MCH MCHC RDW Plt Count MPV Neut % (Auto) Lymph % (Auto) [place] % (Auto) Eos % (Auto) Baso % (Auto) Neut # (Auto) Lymph # (Auto) [place] # (Auto) Eos # (Auto) Baso # (Auto) Total Counted Immature Gran % Nucleated RBC % Immature Gran # Segmented Neutrophils Band Neutrophils Lymphocytes Monocytes Nucleated RBCs # Platelet Estimate Polychromasia Hypochromasia INR 1.0 PT Patient/Control Mix 10.9 Sodium 153 H Potassium 5.3 H Chloride 124 H Carbon Dioxide 20 L Anion Gap 14.3 BUN 133 H Creatinine 3.00 H GFR Calculation 19 BUN/Creatinine Ratio 44.00 H Glucose 186 H Calculated Osmolality 350.6 H Uric Acid 11.6 H Calcium 9.4 Phosphorus 3.7 Magnesium 2.6 H Total Bilirubin AST ALT Alkaline Phosphatase Lactate Dehydrogenase Total Creatine Kinase CK-MB (CK-2) Troponin I Total Protein Albumin Globulin Albumin/Globulin Ratio Prealbumin 30.2 03/10/17 03/10/17 06:07 06:07 WBC 11.6 RBC 3.56 L D Hgb 10.3 L D Hct 31.7 L MCV 89.0 MCH 29 MCHC 32.5 RDW 16.7 Plt Count 220 MPV 11.8 Neut % (Auto) 86.7 H Lymph % (Auto) 6.3 L [place] % (Auto) 5.0 Eos % (Auto) 0.0 Baso % (Auto) 0.1 Neut # (Auto) 10.1 H Lymph # (Auto) 0.7 L [place] # (Auto) 0.6 Eos # (Auto) 0.0 Baso # (Auto) 0.0 Total Counted 100 Immature Gran % 1.9 Nucleated RBC % 3.0 Immature Gran # 0.22 Segmented Neutrophils 85 Band Neutrophils 8 Lymphocytes 4 L Monocytes 3 Nucleated RBCs # 0.35 Platelet Estimate Adequate Polychromasia Slight Hypochromasia 1+ INR PT Patient/Control Mix Sodium 154 H Potassium 5.2 H Chloride 122 H Carbon Dioxide 19 L Anion Gap 18.2 H BUN 132 H Creatinine 2.90 H GFR Calculation 20 BUN/Creatinine Ratio 45.00 H Glucose 184 H Calculated Osmolality 352.4 H Uric Acid Calcium 9.3 Phosphorus Magnesium Total Bilirubin 0.60 AST 21 ALT 31 Alkaline Phosphatase 57 Lactate Dehydrogenase 175 Total Creatine Kinase CK-MB (CK-2) Troponin I Total Protein 6.3 L Albumin 2.6 L Globulin 3.7 H Albumin/Globulin Ratio 0.7 L Prealbumin - EKG EKG results: interpreted by me EKG shows: tachycardia, sinus rhythm Quality Measures - VTE Contraindication to Pharmacological VTE Prophylaxis: Active Bleeding IDante Dale, MD, personally performed the services described in this documentation, ascribed by Demetria Levy RN in my presence, and it is both accurate and complete 124 .
[2017-03-10] MEDS: BISOPROLOL 5 MG TABLET PO SCH (21:33)
[2017-03-10] MEDS: ACETAMINOPHEN 325 MG TABLET PO SCH (21:38)
[2017-03-10] MEDS: GABAPENTIN 100 MG CAPSULE PO SCH (21:38)
[2017-03-10] MEDS: traMADol 50 MG TABLET PO SCH (21:39)
[2017-03-11] MEDS: methylPREDNISolone SOD SUC 40 MG/1 ML VIAL IV SCH ×3 (02:42→18:17)
[2017-03-11] MEDS: DEXT 5% NACL 0.45% KCL 20 MEQ 20 MEQ/1,000 ML BAG IV SCH ×2 (05:04→08:38)
[2017-03-11 05:28] LABS: Basophils % 0.1 % (0.0-0.8); Hematocrit 25.5 VOL% (42.0-52.0); Hemoglobin 8.2 GM/DL (14.0-18.0); Immature Granulocytes % 1.7 %; Lymphocytes # 0.5 10*3/uL (1.4-4.0); Lymphocytes % 4.5 % (21.2-54.2); Mean Corpuscular HGB Conc 32.2 GM/DL (32-36); Mean Corpuscular Hemoglobin 29 PG (27-34); Mean Corpuscular Volume 90.7 FL (87-102); Mean Platelet Volume 11.5 FL (9.6-12.0); Monocytes # 0.8 10*3/uL (0.11-0.8); Monocytes % 6.8 % (1.7-12.7); NRBC # 0.42 10*3/uL; Neutrophils # 10.1 10*3/uL (1.4-7.4); Neutrophils % 86.9 % (38.7-73.9); Platelet Count 198 T/CUMM (130-400); Red Blood Count 2.81 MC/CUMM (3.8-5.5); Red Cell Distribution Width 17.6 % (9.3-17.3); White Blood Count 11.7 T/CUMM (4-12)
[2017-03-11 05:58] LABS: Albumin 2.3 G/DL (3.4-5.0); Bilirubin,Total 0.5 MG/DL (0.2-1.0); Calcium 8.4 MG/DL (8.5-10.1); Osmolality,Calculated 336.6 MOS/KG (273-304); Potassium 4.6 MMOL/L (3.5-5.1); Total Protein 5.5 G/DL (6.4-8.3)
[2017-03-11 06:08] LABS: Hypochromasia 1+; Lymphocytes 4 % (20-55); Microcytosis Slight; Nucleated Red Blood Cells 4 (0-5); Ovalocytes Slight; Platelet Estimate Adequate; Segmented Neutrophils 89 % (50-85); Total Cells Counted 100
[2017-03-11 06:25] LABS: Calcium 8.5 MG/DL (8.5-10.1); Magnesium 2.7 MG/DL (1.8-2.4); Osmolality,Calculated 339.3 MOS/KG (273-304); Potassium 4.6 MMOL/L (3.5-5.1)
--- NOTE | 2017-03-11 08:37 | EKG Report ---
Stationary ECG Study [facility] Test Date: 03/11/2017 8:37:01 AM Pat Name: ROGERIO RABAGO Department: Room: 418 Gender: M Behavioral Health Technician: KASSY : 1935 Requested by: Pro Howell Order Number: [id number] Reading MD: SANJANA FLOWERS Intervals [place] Rate: 86 P: 63 FL: 132 QRS: 43 QRSD: 77 T: 49 QT: 372 QTc: 416 Interpretive Statements SINUS RHYTHM POSSIBLE RIGHT VENTRICULAR CONDUCTION DELAY Electronically Signed On 03-13-17 08:48:19 CDT by SANJANA FLOWERS [email or web address]
[2017-03-11] MEDS: GABAPENTIN 100 MG CAPSULE PO SCH ×3 (10:01→22:30)
[2017-03-11] MEDS: ASPIRIN EC 81 MG TABLET PO SCH (10:01)
[2017-03-11] MEDS: TICAGRELOR 90 MG TABLET PO SCH ×2 (10:01→22:31)
[2017-03-11] MEDS: CILOSTAZOL 50 MG TABLET PO SCH ×2 (10:01→22:31)
[2017-03-11] MEDS: BISOPROLOL 5 MG TABLET PO SCH ×2 (10:01→22:31)
[2017-03-11] MEDS: PANTOPRAZOLE 40 MG VIAL IV SCH ×3 (10:02→22:27)
[2017-03-11] MEDS: traMADol 50 MG TABLET PO SCH ×2 (10:43→22:05)
[2017-03-11] MEDS: ACETAMINOPHEN 325 MG TABLET PO SCH ×2 (10:43→22:04)
[2017-03-11] MEDS: DEXTROSE 5% 1,000 ML IV SCH (10:49)
--- NOTE | 2017-03-11 10:49 | Oncology Progress Note ---
Assessment and Plan (1) Hypernatremia Status: Acute Assessment and plan: 81 year old male with PMHx of laryngeal ca undergoing radiation admitted for dehydration and a GI bleed. - PO fluid intake improved per patient. - Cr improved to 2 today - Na still elevated. will change to D5W at 75 cc/hr and check a repeat BMP later in the day Current Visit: Yes (2) Laryngeal cancer Status: Chronic Assessment and plan: undergoing radiation during the week tolerating well other than dehydration Current Visit: Yes (3) GI bleed Status: Acute Assessment and plan: s/p EGD on 03/10 with esophagitis - no source of bleed - Hb stable s/p 3 units PRBC - will continue to follow CBC Q12h for stability for now Current Visit: Yes Oncology Subjective PN Interval history: 81 year old male with PMHx of laryngeal ca undergoing radiation admitted for dehydration and a GI bleed. Patient was transfused 3 units PRBC and underwent an EGD on 03/10 with esophagitis. No further cough grounds per PEG tube. Per patient feels much better since admission. Starting to have increased fluid intake. Tolerating PEG tube feeds well. No fevers. No new pains. Exam - Constitutional Vitals: Period Temp Pulse Resp BP Sys/Keith Pulse Ox Last 24 Hr 96.9 F-98.1 F 89-111 12-20 122-164/56-89 95-100 General appearance: no acute distress - Eye Eye Exam: Present: EOMI - ENT ENT exam: Present: other (hoarse voice) - Respiratory Respiratory exam: Present: CTAB - Cardiovascular Cardiovascular exam: Present: RRR - GI/Abdominal GI/Abdominal exam: Present: soft. Absent: ascites, distended, mass, tenderness - Extremities Exam Extremities exam: Absent: edema - Neurological Exam Neurological exam: Present: alert, oriented X3 - Psychiatric Psychiatric exam: Present: normal affect - Skin Skin exam: Present: warm Results - Labs CBC & BMP: 03/11/17 04:30 03/11/17 04:00 Quality Measures - VTE Contraindication to Pharmacological VTE Prophylaxis: Active Bleeding
[2017-03-11 18:49] LABS: Basophils % 0.2 % (0.0-0.8); Hematocrit 24.7 VOL% (42.0-52.0); Hemoglobin 8.2 GM/DL (14.0-18.0); Immature Granulocytes % 1.9 %; Immature Granulocytes Absolute 0.24 #; Lymphocytes # 0.5 10*3/uL (1.4-4.0); Lymphocytes % 3.7 % (21.2-54.2); Mean Corpuscular HGB Conc 33.2 GM/DL (32-36); Mean Corpuscular Hemoglobin 30 PG (27-34); Mean Corpuscular Volume 89.5 FL (87-102); Mean Platelet Volume 11.4 FL (9.6-12.0); Monocytes # 1.2 10*3/uL (0.11-0.8); Monocytes % 9.7 % (1.7-12.7); NRBC # 0.44 10*3/uL; Neutrophils # 10.5 10*3/uL (1.4-7.4); Neutrophils % 84.5 % (38.7-73.9); Platelet Count 198 T/CUMM (130-400); Red Blood Count 2.76 MC/CUMM (3.8-5.5); Red Cell Distribution Width 17.7 % (9.3-17.3); White Blood Count 12.4 T/CUMM (4-12)
[2017-03-11 19:13] LABS: Calcium 7.6 MG/DL (8.5-10.1); Osmolality,Calculated 324.9 MOS/KG (273-304); Potassium 4.3 MMOL/L (3.5-5.1)
--- NOTE | 2017-03-11 21:33 | Cardiology Progress Note ---
Assessment and Plan (1) Chest pain Status: Acute Assessment and plan: Differential diagnosis would include coronary disease, ischemia related to tachycardia, GI cause, related to radiation, such as esophagitis, or musculoskeletal cause Plan/recommendation: serial EKGs Serial troponin-repeat tomorrow Treat chest wall pain-tramadol 50 mg p.o. twice daily, gabapentin 100 mg p.o. 3 times daily Change metoprolol to bisoprolol 2.5 mg p.o. twice daily. It will more likely to control his heart rate. Try to target to get his heart rate to 60-70. It may control many of his symptoms his dyspnea on exertion certainly could be due to his anemia and deconditioning. He states he cannot walk much, presumably due to orthopedic problems. other possibilities could be considered. Thank you for allowing me to participate in this patient's care 03/11/17: Assessment/plan/recommendation: pain with swallowing water is now gone. The E scope did show esophagitis. The nonspecific pain medicine I am using is probably helping. I doubt he has ACS. Will continue current therapy. I have encouraged him to try to ambulate with a walker or cane. It would help alleviate his likely physical deconditioning which causes his dyspnea on exertion. Current Visit: Yes (2) Anemia Status: Acute Current Visit: Yes (3) Coronary artery disease Status: Chronic Current Visit: Yes Qualifiers: Coronary Disease-Associated Artery/Lesion type: [place] artery [place] vs. transplanted heart: [place] heart (4) Laryngeal cancer Status: Chronic Current Visit: Yes (5) Tachycardia Status: Acute Current Visit: Yes (6) Dyspnea on exertion Status: Acute Current Visit: Yes (7) COPD (chronic obstructive pulmonary disease) Status: Acute Current Visit: Yes (8) Dysphagia Status: Acute Current Visit: No Cardiology - PN: Subj Interval history: Currently, with recent meds, he no longer has pain with swallowing water. No anterior chest pain, either. Exam (Progress Note) - Constitutional Vitals: Period Temp Pulse Resp BP Sys/Keith Pulse Ox Last 24 Hr 96.9 F-98.1 F 86-97 12-20 124-144/56-67 95-100 Exam: HEENT: Pupils equal, reactive to light and accommodation Neck: NoJVD or bruit Lungs clear to auscultation Heart: Regular rhythm rate with normal S1 and S2. Apical S4 Abdomen: No hepatosplenomegaly Spine/extremities: No clubbing, cyanosis, or edema Neuro: Nonfocal Psych: No depression or anxiety Result/EKG - Labs CBC & BMP: 03/11/17 18:35 03/11/17 18:35 Labs: Laboratory Results - last 24 hr 03/11/17 03/11/17 03/11/17 04:00 04:00 04:00 WBC RBC Hgb Hct MCV MCH MCHC RDW Plt Count MPV Neut % (Auto) Lymph % (Auto) [place] % (Auto) Eos % (Auto) Baso % (Auto) Neut # (Auto) Lymph # (Auto) [place] # (Auto) Eos # (Auto) Baso # (Auto) Total Counted Immature Gran % Nucleated RBC % Immature Gran # Segmented Neutrophils Lymphocytes Monocytes Nucleated RBCs Nucleated RBCs # Platelet Estimate Hypochromasia Microcytosis Ovalocytes Morphology Comment Sodium 153 H 155 H Potassium 4.6 4.6 Chloride 125 H 124 H Carbon Dioxide 19 L 19 L Anion Gap 13.6 16.6 H BUN 94 H D 92 H Creatinine 2.00 H 2.00 H GFR Calculation 31 31 BUN/Creatinine Ratio 47.00 H 46.00 H Glucose 191 H 188 H Calculated Osmolality 336.6 H 339.3 H Calcium 8.4 L 8.5 Magnesium 2.7 H Total Bilirubin 0.50 AST 24 ALT 34 Alkaline Phosphatase 50 Lactate Dehydrogenase 175 Total Creatine Kinase 61 D CK-MB (CK-2) 1.7 Troponin I 0.030 Total Protein 5.5 L Albumin 2.3 L Globulin 3.2 Albumin/Globulin Ratio 0.7 L 03/11/17 03/11/17 03/11/17 04:30 18:35 18:35 WBC 11.7 12.4 H RBC 2.81 L D 2.76 L Hgb 8.2 L 8.2 L Hct 25.5 L 24.7 L MCV 90.7 89.5 MCH 29 30 MCHC 32.2 33.2 RDW 17.6 H 17.7 H Plt Count 198 198 MPV 11.5 11.4 Neut % (Auto) 86.9 H 84.5 H Lymph % (Auto) 4.5 L 3.7 L [place] % (Auto) 6.8 9.7 Eos % (Auto) 0.0 0.0 Baso % (Auto) 0.1 0.2 Neut # (Auto) 10.1 H 10.5 H Lymph # (Auto) 0.5 L 0.5 L [place] # (Auto) 0.8 1.2 H Eos # (Auto) 0.0 0.0 Baso # (Auto) 0.0 0.0 Total Counted 100 Immature Gran % 1.7 1.9 Nucleated RBC % 3.6 3.6 Immature Gran # 0.20 0.24 Segmented Neutrophils 89 H Lymphocytes 4 L Monocytes 7 Nucleated RBCs 4 Nucleated RBCs # 0.42 0.44 Platelet Estimate Adequate Hypochromasia 1+ Microcytosis Slight Ovalocytes Slight Morphology Comment Sodium 151 H Potassium 4.3 Chloride 119 H Carbon Dioxide 22 Anion Gap 14.3 BUN 74 H D Creatinine 1.80 H GFR Calculation 35 BUN/Creatinine Ratio 41.00 H Glucose 177 H Calculated Osmolality 324.9 H Calcium 7.6 L Magnesium Total Bilirubin AST ALT Alkaline Phosphatase Lactate Dehydrogenase Total Creatine Kinase CK-MB (CK-2) Troponin I Total Protein Albumin Globulin Albumin/Globulin Ratio - EKG EKG results: interpreted by me Quality Measures - VTE Contraindication to Pharmacological VTE Prophylaxis: Active Bleeding
[2017-03-12] MEDS: DEXTROSE 5% 1,000 ML IV SCH ×3 (00:22→14:44)
[2017-03-12] MEDS: methylPREDNISolone SOD SUC 40 MG/1 ML VIAL IV SCH ×3 (02:26→21:17)
[2017-03-12 05:10] LABS: Basophils % 0.1 % (0.0-0.8); Hematocrit 26.3 VOL% (42.0-52.0); Hemoglobin 8.4 GM/DL (14.0-18.0); Immature Granulocytes Absolute 0.25 #; Lymphocytes # 0.5 10*3/uL (1.4-4.0); Lymphocytes % 3.5 % (21.2-54.2); Mean Corpuscular HGB Conc 31.9 GM/DL (32-36); Mean Corpuscular Hemoglobin 29 PG (27-34); Mean Corpuscular Volume 91.3 FL (87-102); Mean Platelet Volume 11.3 FL (9.6-12.0); Monocytes # 1.1 10*3/uL (0.11-0.8); Monocytes % 8.6 % (1.7-12.7); NRBC # 0.41 10*3/uL; Neutrophils % 85.8 % (38.7-73.9); Platelet Count 205 T/CUMM (130-400); Red Blood Count 2.88 MC/CUMM (3.8-5.5); Red Cell Distribution Width 17.5 % (9.3-17.3); White Blood Count 12.8 T/CUMM (4-12)
[2017-03-12 05:45] LABS: Band Neutrophils 1 % (0-10); Lymphocytes 6 % (20-55); Metamyelocytes 1 %; Nucleated Red Blood Cells 3 (0-5); Platelet Estimate Normal; Segmented Neutrophils 86 % (50-85); Total Cells Counted 100
[2017-03-12 05:57] LABS: Alanine Aminotransferase 44 U/L (16-61); Albumin 2.3 G/DL (3.4-5.0); Alkaline Phosphatase 57 U/L (45-117); Aspartate Amino Transferase 27 U/L (0-37); Bilirubin,Total < 0.39 MG/DL (0.2-1.0); Blood Urea Nitrogen 61 MG/DL (7-18); Calcium 7.5 MG/DL (8.5-10.1); Glucose 185 MG/DL (74-106); Magnesium 2.3 MG/DL (1.8-2.4); Osmolality,Calculated 311.6 MOS/KG (273-304); Potassium 3.8 MMOL/L (3.5-5.1); Sodium 146 MMOL/L (136-145); Total Protein 5.6 G/DL (6.4-8.3)
--- NOTE | 2017-03-12 08:17 | EKG Report ---
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
[2017-03-12] MEDS: TICAGRELOR 90 MG TABLET PO SCH ×2 (09:29→21:22)
[2017-03-12] MEDS: BISOPROLOL 5 MG TABLET PO SCH ×2 (09:29→21:22)
[2017-03-12] MEDS: GABAPENTIN 100 MG CAPSULE PO SCH ×3 (09:30→21:22)
[2017-03-12] MEDS: ASPIRIN EC 81 MG TABLET PO SCH (09:30)
[2017-03-12] MEDS: PANTOPRAZOLE 40 MG VIAL IV SCH ×3 (09:30→21:12)
[2017-03-12] MEDS: CILOSTAZOL 50 MG TABLET PO SCH ×2 (09:30→21:22)
[2017-03-12] MEDS: traMADol 50 MG TABLET PO SCH ×2 (09:31→23:31)
[2017-03-12] MEDS: ACETAMINOPHEN 325 MG TABLET PO SCH ×2 (09:31→23:31)
--- NOTE | 2017-03-12 10:56 | Oncology Progress Note ---
Assessment and Plan (1) Hypernatremia Status: Acute Assessment and plan: - PO fluid intake improved - Cr continues to improve - Na improved with D5W. will decrease rate to 50 cc/hr Current Visit: Yes (2) Laryngeal cancer Status: Chronic Assessment and plan: undergoing radiation during the week tolerating well other than dehydration Current Visit: Yes (3) GI bleed Status: Acute Assessment and plan: s/p EGD on 03/10 with esophagitis - no source of bleed - Hb stable s/p 3 units PRBC - will continue to monitor - continue with PPI Current Visit: Yes Oncology Subjective PN Interval history: 81 year old male with PMHx of laryngeal ca undergoing radiation admitted for dehydration and a GI bleed. Today feels well. Continued hoarse voice. Better fluid intake. Tolerating tube feeds. Some congestion. No SOB. No N/V/D. No fevers. No bleeding. Exam - Constitutional Vitals: Period Temp Pulse Resp BP Sys/Keith Pulse Ox Last 24 Hr 97.4 F-97.9 F 80-90 16-20 123-132/59-64 97-100 General appearance: no acute distress - Eye Eye Exam: Present: EOMI - Respiratory Respiratory exam: Present: decreased breath sounds - Cardiovascular Cardiovascular exam: Present: RRR - GI/Abdominal GI/Abdominal exam: Present: soft, other (PEG tube). Absent: ascites, distended , tenderness - Extremities Exam Extremities exam: Present: other (left AKA). Absent: edema - Neurological Exam Neurological exam: Present: alert, oriented X3 - Skin Skin exam: Present: warm Results - Labs CBC & BMP: 03/12/17 04:30 03/12/17 04:30 Quality Measures - VTE Contraindication to Pharmacological VTE Prophylaxis: Active Bleeding
--- NOTE | 2017-03-12 12:29 | Cardiology Progress Note ---
Assessment and Plan (1) Chest pain Status: Acute Assessment and plan: Differential diagnosis would include coronary disease, ischemia related to tachycardia, GI cause, related to radiation, such as esophagitis, or musculoskeletal cause Plan/recommendation: serial EKGs Serial troponin-repeat tomorrow Treat chest wall pain-tramadol 50 mg p.o. twice daily, gabapentin 100 mg p.o. 3 times daily Change metoprolol to bisoprolol 2.5 mg p.o. twice daily. It will more likely to control his heart rate. Try to target to get his heart rate to 60-70. It may control many of his symptoms his dyspnea on exertion certainly could be due to his anemia and deconditioning. He states he cannot walk much, presumably due to orthopedic problems. other possibilities could be considered. Thank you for allowing me to participate in this patient's care 03/11/17: Assessment/plan/recommendation: pain with swallowing water is now gone. The E scope did show esophagitis. The nonspecific pain medicine I am using is probably helping. I doubt he has ACS. Will continue current therapy. I have encouraged him to try to ambulate with a walker or cane. It would help alleviate his likely physical deconditioning which causes his dyspnea on exertion. 03/12/17: Assessment/plan/recommendation: Pain with swallowing is gone. Treating esophagitis. I encouraged him to continue sit up in a chair as much she can. Can ambulate as best can. I discussed this with he and his . He is complaining of some cough and not being able to get up some "junk" in his lungs. Will start patient on Mucinex 600 mg p.o. twice daily and albuterol 1 4 times daily while awake. Current Visit: Yes (2) Anemia Status: Acute Current Visit: Yes (3) Coronary artery disease Status: Chronic Current Visit: Yes Qualifiers: Coronary Disease-Associated Artery/Lesion type: [place] artery [place] vs. transplanted heart: [place] heart (4) Laryngeal cancer Status: Chronic Current Visit: Yes (5) Tachycardia Status: Acute Current Visit: Yes (6) Dyspnea on exertion Status: Acute Current Visit: Yes (7) COPD (chronic obstructive pulmonary disease) Status: Acute Current Visit: Yes (8) Dysphagia Status: Acute Current Visit: No Cardiology - PN: Subj Interval history: No chest pain or shortness of breath. He is able to sit up in a chair. No chest pain with swallowing. He is having some coughing. His difficulty getting up "junk" from his lungs. Exam (Progress Note) - Constitutional Vitals: Period Temp Pulse Resp BP Sys/Keith Pulse Ox Last 24 Hr 97.4 F-97.9 F 80-90 16-20 123-129/58-62 95-100 Exam: HEENT: Pupils equal, reactive to light and accommodation Neck: NoJVD or bruit Lungs clear to auscultation Heart: Regular rhythm rate with normal S1 and S2. Apical S4 Abdomen: No hepatosplenomegaly Spine/extremities: No clubbing, cyanosis, or edema Neuro: Nonfocal Psych: No depression or anxiety Result/EKG - Labs CBC & BMP: 03/12/17 04:30 03/12/17 04:30 Lab Results: I have reviewed the past 24 hour labs Labs: Laboratory Results - last 24 hr 03/11/17 03/11/17 03/12/17 18:35 18:35 04:30 WBC 12.4 H 12.8 H RBC 2.76 L 2.88 L Hgb 8.2 L 8.4 L Hct 24.7 L 26.3 L MCV 89.5 91.3 MCH 30 29 MCHC 33.2 31.9 L RDW 17.7 H 17.5 H Plt Count 198 205 MPV 11.4 11.3 Neut % (Auto) 84.5 H 85.8 H Lymph % (Auto) 3.7 L 3.5 L [place] % (Auto) 9.7 8.6 Eos % (Auto) 0.0 0.0 Baso % (Auto) 0.2 0.1 Neut # (Auto) 10.5 H 11.0 H Lymph # (Auto) 0.5 L 0.5 L [place] # (Auto) 1.2 H 1.1 H Eos # (Auto) 0.0 0.0 Baso # (Auto) 0.0 0.0 Total Counted 100 Immature Gran % 1.9 2.0 Nucleated RBC % 3.6 3.2 Immature Gran # 0.24 0.25 Segmented Neutrophils 86 H Band Neutrophils 1 Lymphocytes 6 L Monocytes 6 Metamyelocytes 1 Nucleated RBCs 3 Nucleated RBCs # 0.44 0.41 Platelet Estimate Normal Pappenheimer Bodies Roller Maker Sodium 151 H Potassium 4.3 Chloride 119 H Carbon Dioxide 22 Anion Gap 14.3 BUN 74 H D Creatinine 1.80 H GFR Calculation 35 BUN/Creatinine Ratio 41.00 H Glucose 177 H Calculated Osmolality 324.9 H Calcium 7.6 L Magnesium Total Bilirubin AST ALT Alkaline Phosphatase Lactate Dehydrogenase Total Protein Albumin Globulin Albumin/Globulin Ratio 03/12/17 04:30 WBC RBC Hgb Hct MCV MCH MCHC RDW Plt Count MPV Neut % (Auto) Lymph % (Auto) [place] % (Auto) Eos % (Auto) Baso % (Auto) Neut # (Auto) Lymph # (Auto) [place] # (Auto) Eos # (Auto) Baso # (Auto) Total Counted Immature Gran % Nucleated RBC % Immature Gran # Segmented Neutrophils Band Neutrophils Lymphocytes Monocytes Metamyelocytes Nucleated RBCs Nucleated RBCs # Platelet Estimate Pappenheimer Bodies Sodium 146 H Potassium 3.8 Chloride 114 H Carbon Dioxide 21 Anion Gap 14.8 BUN 61 H D Creatinine 1.60 H GFR Calculation 41 BUN/Creatinine Ratio 38.00 H Glucose 185 H Calculated Osmolality 311.6 H Calcium 7.5 L Magnesium 2.3 Total Bilirubin < 0.39 AST 27 ALT 44 Alkaline Phosphatase 57 Lactate Dehydrogenase 214 Total Protein 5.6 L Albumin 2.3 L Globulin 3.3 Albumin/Globulin Ratio 0.6 L - EKG EKG results: interpreted by me Quality Measures - VTE Contraindication to Pharmacological VTE Prophylaxis: Active Bleeding
--- NOTE | 2017-03-12 12:39 | XRay Report ---
Exam: XR chest 1V portable Indication: Chest congestion Comparison study: 03/10/2017 Findings: The heart, mediastinum and bony structures are stable from prior. Right chest Mediport is in similar position. There is no focal consolidation, pneumothorax or pleural effusion identified. Impression: No acute cardiopulmonary process. No significant change from prior. PROCEDURE INTERPRETED AT [facility] DEPARTMENT OF RADIOLOGY Final Report Signed by: Nicholas Connolly
[2017-03-12] MEDS: ALBUTEROL/IPRATROPIUM 3 ML NEB RESP TX SCH ×3 (15:43→23:59)
[2017-03-13] MEDS: ALBUTEROL/IPRATROPIUM 3 ML NEB RESP TX SCH ×6 (03:27→23:45)
[2017-03-13 05:02] LABS: Basophils % 0.1 % (0.0-0.8); Hematocrit 28.4 VOL% (42.0-52.0); Hemoglobin 8.9 GM/DL (14.0-18.0); Immature Granulocytes % 2.3 %; Immature Granulocytes Absolute 0.28 #; Lymphocytes # 0.4 10*3/uL (1.4-4.0); Lymphocytes % 2.9 % (21.2-54.2); Mean Corpuscular HGB Conc 31.3 GM/DL (32-36); Mean Corpuscular Hemoglobin 30 PG (27-34); Mean Platelet Volume 11.2 FL (9.6-12.0); Monocytes # 1.3 10*3/uL (0.11-0.8); Monocytes % 10.9 % (1.7-12.7); NRBC # 0.15 10*3/uL; Neutrophils # 10.2 10*3/uL (1.4-7.4); Neutrophils % 83.8 % (38.7-73.9); Platelet Count 197 T/CUMM (130-400); Red Blood Count 3.02 MC/CUMM (3.8-5.5); Red Cell Distribution Width 18.2 % (9.3-17.3); White Blood Count 12.2 T/CUMM (4-12)
[2017-03-13 05:03] LABS: Alanine Aminotransferase 43 U/L (16-61); Albumin 2.4 G/DL (3.4-5.0); Alkaline Phosphatase 54 U/L (45-117); Aspartate Amino Transferase 22 U/L (0-37); Bilirubin,Total < 0.39 MG/DL (0.2-1.0); Calcium 7.4 MG/DL (8.5-10.1); Total Protein 5.8 G/DL (6.4-8.3)
[2017-03-13 05:04] LABS: Blood Urea Nitrogen 53 MG/DL (7-18); Glucose 181 MG/DL (74-106); Osmolality,Calculated 295.5 MOS/KG (273-304); Potassium 3.9 MMOL/L (3.5-5.1); Sodium 139 MMOL/L (136-145)
[2017-03-13 05:07] LABS: Calcium 7.5 MG/DL (8.5-10.1); Magnesium 2.2 MG/DL (1.8-2.4); Osmolality,Calculated 296.5 MOS/KG (273-304); Potassium 3.9 MMOL/L (3.5-5.1)
[2017-03-13 07:28] LABS: Hypochromasia 1+; Lymphocytes 3 % (20-55); Macrocytosis 1+; Nucleated Red Blood Cells 3 (0-5); Polychromasia Slight; Segmented Neutrophils 91 % (50-85); Total Cells Counted 100
[2017-03-13 07:29] LABS: Platelet Estimate Adequate
--- NOTE | 2017-03-13 07:32 | Oncology Progress Note ---
Oncology Subjective PN Interval history: This patient with laryngeal carcinoma was admitted with weakness, prostration and inability to maintain hydration. His CBC today includes white cell count 12,200 with a hemoglobin of 8.9 and a platelet count of 197,000. The patient's serum creatinine has improved modestly. It is 1.6 today which I do not think is going to improve much more. He has several more days to go to complete radiation therapy, and to the middle of March. I am going to transfuse him with 2 more units of packed red cells. He is stable. He is alert and oriented. He is tolerating PEG tube feedings well. My plan is to discharge him tomorrow if all goes well. Exam - Constitutional Vitals: Period Temp Pulse Resp BP Sys/Keith Pulse Ox Last 24 Hr 97.6 F-98.6 F 79-103 16-22 116-144/56-67 93-99 Results - Labs CBC & BMP: 03/13/17 04:00 03/13/17 04:00 Quality Measures - VTE Contraindication to Pharmacological VTE Prophylaxis: Active Bleeding
--- NOTE | 2017-03-13 08:24 | EKG Report ---
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
[2017-03-13] MEDS ORDERED: SODIUM CHLORIDE 0.9% 250 ML IV PRN (09:18)
--- NOTE | 2017-03-13 09:23 | Gastrointestinal Progress Note ---
<Debra Marther Arnav - Last Filed: 03/13/17 09:21> Assessment and Plan (1) Anemia Status: Acute Assessment and plan: 03/13-hemoglobin holding at 8.9. No further overt bleeding at present time. Tolerating tube feedings. Plan an addendum to follow by Dr. Burciaga 03/10-Findings on admission of anemia with reports of melena, dark gastric fluid from PEG, weakness. Findings of hemoglobin 6.4. EGD last month findings noted with erosive esophagitis and acute bulbar duodenitis. Received 3 units PRBC, Hgb now 10. Unable to proceed with EGD at present due to hypernatremia/ hyperkalemia. Monitor serial HH, check stool for occult blood. Hold NPO monday night for tentative EGD Monday if pt remains stable. Plan and addendum to follow by Dr Burciaga. Current Visit: Yes Gastroenterology - PN: Subj Interval history: CC: GI bleed Patient is seen awake and alert with family at bedside. States he is feeling some better at this time. Denies any pain. He is tolerating his tube feedings at present time without any further overt signs of bleeding. He has been having bowel movements and reported to be dark. Abdomen is soft, nontender. EGD findings from Monday were noted with esophagitis. Hemoglobin is holding at 8.9. ROS: Denies shortness of breath or chest pain Exam (Progress Note) - Constitutional Vitals: Period Temp Pulse Resp BP Sys/Keith Pulse Ox Last 24 Hr 97.6 F-98.6 F 79-103 16-22 116-144/56-67 93-99 General appearance: normal weight, no acute distress - Head Head exam: Present: normal inspection, normocephalic - Eye Eye exam: Present: other (Lids and conjunctive are unremarkable). Absent: scleral icterus - ENT ENT exam: Present: normal exam, normal oropharynx - Neck Neck exam: Present: normal inspection - Respiratory Respiratory exam: Present: clear to auscultation bilaterally. Absent: rales, rhonchi, wheezes - Cardiovascular Cardiovascular exam: Present: regular rate and rhythm. Absent: diastolic murmur , JVD, systolic murmur - GI/Abdominal GI/Abdominal exam: Present: normal bowel sounds, soft. Absent: ascites, distended, mass, organomegaly, tenderness - Extremities Exam Extremities exam: Present: normal inspection, full ROM - Back Exam Back exam: Present: normal inspection - Neurological Exam Neurological exam: Present: alert, oriented X3 - Psychiatric Psychiatric exam: Present: normal affect, normal mood - Skin Skin exam: Present: normal color, warm, dry Results - Labs CBC & BMP: 03/13/17 04:00 03/13/17 04:00 Lab Results: I have reviewed the past 24 hour labs <Nikita Burciaga - Last Filed: 03/13/17 17:58> Exam (Progress Note) - Constitutional Vitals: Period Temp Pulse Resp BP Sys/Keith Pulse Ox Last 24 Hr 97.5 F-98.6 F 80-103 16-22 108-134/56-78 93-99 Results - Labs CBC & BMP: 03/13/17 04:00 03/13/17 04:00
[2017-03-13] MEDS: ACETAMINOPHEN 325 MG TABLET PO SCH ×2 (11:01→21:45)
[2017-03-13] MEDS: BISOPROLOL 5 MG TABLET PO SCH ×2 (11:02→21:44)
[2017-03-13] MEDS: traMADol 50 MG TABLET PO SCH ×2 (11:02→21:45)
[2017-03-13] MEDS: CILOSTAZOL 50 MG TABLET PO SCH ×2 (11:02→21:44)
[2017-03-13] MEDS: GABAPENTIN 100 MG CAPSULE PO SCH ×3 (11:02→21:44)
[2017-03-13] MEDS: ASPIRIN EC 81 MG TABLET PO SCH (11:02)
[2017-03-13] MEDS: PANTOPRAZOLE 40 MG VIAL IV SCH ×3 (11:03→21:57)
[2017-03-13] MEDS: TICAGRELOR 90 MG TABLET PO SCH ×2 (11:03→21:45)
[2017-03-13] MEDS: DEXTROSE 5% 1,000 ML IV SCH (11:03)
[2017-03-13] MEDS: methylPREDNISolone SOD SUC 40 MG/1 ML VIAL IV SCH ×2 (11:03→22:00)
--- NOTE | 2017-03-13 17:01 | Cardiology Progress Note ---
Cam Barajas April, RN, am scribing for, and in the presence of, Sheyla Ang DO 17 :01. Assessment and Plan (1) Chest pain Status: Acute Assessment and plan: This appears to be noncardiac and is appears to be esophageal related is precipitated by swallowing. Current Visit: Yes (2) Anemia Status: Acute Current Visit: Yes (3) Coronary artery disease Status: Chronic Current Visit: Yes Qualifiers: Coronary Disease-Associated Artery/Lesion type: [place] artery [place] vs. transplanted heart: [place] heart (4) Laryngeal cancer Status: Chronic Current Visit: Yes Cardiology - PN: Subj Interval history: Export Sales Assistant: Dr. Maloney Mr. Krueger has a history of CAD with drug-eluting stents to the proximal RCA and mid RCA placed in April 2016. He also has a history of laryngeal cancer and COPD. We are seeing Mr. Krueger because of the history of CAD and last week he became more short of breath and had chest pain after drinking water. He was also anemic on admission. He has received 3 units of blood product, his hematocrit today is improved at 28.4. Currently he is resting in bed in no acute distress. He reports he has had no more chest pain and reports his breathing is fair. Oxygen is in use via nasal cannula, he is somewhat short of breath. His heart rates have been in the 80s- 90s, blood pressure has been stable. I saw and examined Mr. Krueger with Ms. Levy. Mr. Krueger states he has not had any chest pain today as family is at his bedside he is a very good spirits. He is receiving blood transfusion at this time. He states his chest pain is all been whenever he swallows particularly liquids. Nothing to suggest angina. Exam (Progress Note) - Constitutional Vitals: Period Temp Pulse Resp BP Sys/Keith Pulse Ox Last 24 Hr 97.6 F-98.6 F 79-103 16-22 116-144/56-67 93-99 General appearance: no acute distress, under weight, other (Ill-appearing) - Head Head exam: Absent: abrasion, hematoma - Eye Eye exam: Absent: periorbital swelling, laceration to eyelids - Respiratory Respiratory exam: Present: rales, other (Oxygen via nasal cannula). Absent: accessory muscle use, chest wall tenderness - Cardiovascular Cardiovascular exam: Present: regular rate and rhythm. Absent: rubs - GI/Abdominal GI/Abdominal exam: Present: hypoactive bowel sounds, tenderness, soft. Absent: distended - Extremities Exam Extremities exam: Present: other (Left AKA). Absent: edema - Neurological Exam Neurological exam: Present: alert, oriented X3 - Psychiatric Psychiatric exam: Present: normal affect, normal mood - Skin Skin exam: Present: warm, dry Result/EKG - Labs CBC & BMP: 03/13/17 04:00 03/13/17 04:00 Lab Results: I have reviewed the past 24 hour labs Labs: Laboratory Results - last 24 hr 03/13/17 03/13/17 03/13/17 04:00 04:00 04:00 WBC 12.2 H RBC 3.02 L Hgb 8.9 L Hct 28.4 L MCV 94.0 MCH 30 MCHC 31.3 L RDW 18.2 H Plt Count 197 MPV 11.2 Neut % (Auto) 83.8 H Lymph % (Auto) 2.9 L [place] % (Auto) 10.9 Eos % (Auto) 0.0 Baso % (Auto) 0.1 Neut # (Auto) 10.2 H Lymph # (Auto) 0.4 L [place] # (Auto) 1.3 H Eos # (Auto) 0.0 Baso # (Auto) 0.0 Total Counted 100 Immature Gran % 2.3 Nucleated RBC % 1.2 Immature Gran # 0.28 Segmented Neutrophils 91 H Lymphocytes 3 L Monocytes 6 Nucleated RBCs 3 Nucleated RBCs # 0.15 Platelet Estimate Adequate Polychromasia Slight Hypochromasia 1+ Macrocytosis 1+ Sodium 139 139 Potassium 3.9 3.9 Chloride 106 106 Carbon Dioxide 23 23 Anion Gap 13.9 13.9 BUN 53 H 54 H Creatinine 1.60 H 1.60 H GFR Calculation 41 41 BUN/Creatinine Ratio 33.00 H 33.00 H Glucose 181 H 185 H Calculated Osmolality 295.5 296.5 Calcium 7.4 L 7.5 L Magnesium 2.2 Total Bilirubin < 0.39 AST 22 ALT 43 Alkaline Phosphatase 54 Lactate Dehydrogenase 230 Total Protein 5.8 L Albumin 2.4 L Globulin 3.4 Albumin/Globulin Ratio 0.7 L - EKG EKG results: interpreted by me EKG shows: sinus rhythm Quality Measures - VTE Contraindication to Pharmacological VTE Prophylaxis: Active Bleeding Ashia Barajas Shea, DO, personally performed the services described in this documentation, ascribed by Demetria Levy RN in my presence, and it is both accurate and complete [id number] .
[2017-03-14] MEDS: ALBUTEROL/IPRATROPIUM 3 ML NEB RESP TX SCH ×2 (04:01→07:35)
[2017-03-14] MEDS: DEXTROSE 5% 1,000 ML IV SCH (06:06)
[2017-03-14 06:45] LABS: Alanine Aminotransferase 43 U/L (16-61); Albumin 2.4 G/DL (3.4-5.0); Alkaline Phosphatase 58 U/L (45-117); Aspartate Amino Transferase 23 U/L (0-37); Bilirubin,Total < 0.39 MG/DL (0.2-1.0); Blood Urea Nitrogen 47 MG/DL (7-18); Calcium 7.2 MG/DL (8.5-10.1); Glucose 142 MG/DL (74-106); Osmolality,Calculated 288.7 MOS/KG (273-304); Potassium 4.7 MMOL/L (3.5-5.1); Sodium 138 MMOL/L (136-145); Total Protein 5.9 G/DL (6.4-8.3)
[2017-03-14 07:13] LABS: Basophils % 0.3 % (0.0-0.8); Hematocrit 35.2 VOL% (42.0-52.0); Immature Granulocytes % 2.8 %; Immature Granulocytes Absolute 0.29 #; Lymphocytes # 0.2 10*3/uL (1.4-4.0); Lymphocytes % 2.1 % (21.2-54.2); Mean Corpuscular HGB Conc 33.5 GM/DL (32-36); Mean Corpuscular Hemoglobin 30 PG (27-34); Mean Platelet Volume 11.2 FL (9.6-12.0); Monocytes # 0.7 10*3/uL (0.11-0.8); Monocytes % 6.9 % (1.7-12.7); NRBC # 0.06 10*3/uL; Neutrophils # 9.2 10*3/uL (1.4-7.4); Neutrophils % 87.9 % (38.7-73.9); Platelet Count 180 T/CUMM (130-400); Red Cell Distribution Width 17.3 % (9.3-17.3); White Blood Count 10.4 T/CUMM (4-12)
--- NOTE | 2017-03-14 07:13 | Oncology Progress Note ---
Oncology Subjective PN Interval history: I am ordering a CBC to be done stat. I do not know whether the order fell off or not. I was under the impression that a CBC was supposed to be done today on this patient but it 7:13 AM and a needed in order to prepare discharge if the patient is able to be discharged. Exam - Constitutional Vitals: Period Temp Pulse Resp BP Sys/Keith Pulse Ox Last 24 Hr 97.0 F-98.6 F 78-103 18-99 104-135/56-100 92-100 Results - Labs CBC & BMP: 03/13/17 04:00 03/14/17 04:00 Quality Measures - VTE Contraindication to Pharmacological VTE Prophylaxis: Active Bleeding
[2017-03-14 07:17] LABS: Hemoglobin 11.8 GM/DL (14.0-18.0)
[2017-03-14 07:19] LABS: Hypochromasia 2+; Microcytosis 1+; Platelet Estimate Adequate; Segmented Neutrophils 93 % (50-85); Total Cells Counted 100
--- NOTE | 2017-03-14 08:24 | Discharge Summary ---
Hospital Course - Hospital Course Hospital Course: Diagnoses: #1: Acute renal failure due to acute dehydration #2: Severe anemia requiring blood transfusion #3: Laryngeal carcinoma #4: Prior history of laryngeal carcinoma that was probably is not the same tumor. #5: COPD #6:Coronary artery disease post CABG #7: Prolonged prothrombin time during last admission probably due to vitamin K deficiency #8: Emaciation, cachexia and malnutrition #9: Hypomagnesemia by history This 81-year-old man who is on radiation therapy for laryngeal carcinoma was admitted with acute dehydration with severe symptomatic anemia and worsening renal failure. We admitted him and hydrated him and continued radiation therapy. He had coffee-ground emesis and his PEG tube which was also evaluated. The patient was transfused and today his blood counts include:White cell count 10,400, hemoglobin 11.8, platelet count 180,000 and his serum creatinine is down to 1.4. I instructed the patient's to be certain that he is getting at least 4 points of liquid daily to include his PEG tube feedings plus water. He already has an appointment to see me later this month. I am not altering his home medications. Discharge Plan - Discharge Data Disposition: Disch To Home/Self Care Condition at Discharge: Guarded Discharge Diet: advance to your usual diet Activity: resume usual activities as tolerated Hygiene: no restrictions Weight Bearing at Discharge: weight bear as tolerated Driving: other Contact your physician if you experience:: fever over 101, Difficulty voiding, Redness or swelling, Nausea/Vomiting, Shortness of breath, Bleeding, pain uncontrolled by pain medications - Discharge Medications Continue Aspirin EC Tab 81 mg PO DAILY #30 tablet Metoprolol Tartrate Tab [Lopressor Tab] 25 mg PO BID #60 tablet Ticagrelor [Brilinta] 90 mg PO BID #60 tablet Cilostazol 50 mg PO BID - Follow Up or Referral - Forms/Instructions Additional Discharge Instructions: Discharge today. Keep appointment to see me as scheduled. Remind patient to take in at least 4 pints of liquids daily. Exam - Constitutional Vitals: Period Temp Pulse Resp BP Sys/Keith Pulse Ox Last 24 Hr 97.0 F-98.6 F 78-99 18-99 104-135/58-100 92-100 Discharge Results Procedures and tests throughout hospitalization: Pending Orders 03/10/17 09:18 Occult Blood, Stool Routine 03/15/17 04:00 Comp Blood Count Auto Diff IN AM Comprehensive Metabolic Panel IN AM 03/16/17 04:00 Basic Metabolic Panel MOTH Magnesium MOTH Phosphorous MOTH Prealbumin MOTH 03/20/17 04:00 Basic Metabolic Panel MOTH Magnesium MOTH Phosphorous MOTH Labs on day of discharge: Labs from last 24 hours 03/14/17 03/14/17 03/13/17 04:00 04:00 12:50 WBC 10.4 RBC 4.00 D Hgb 11.8 L D Hct 35.2 L MCV 88.0 MCH 30 MCHC 33.5 RDW 17.3 Plt Count 180 MPV 11.2 Neut % (Auto) 87.9 H Lymph % (Auto) 2.1 L Saunders % (Auto) 6.9 Eos % (Auto) 0.0 Baso % (Auto) 0.3 Neut # (Auto) 9.2 H Lymph # (Auto) 0.2 L [place] # (Auto) 0.7 Eos # (Auto) 0.0 Baso # (Auto) 0.0 Total Counted 100 Immature Gran % 2.8 Nucleated RBC % 0.6 Immature Gran # 0.29 Segmented Neutrophils 93 H Monocytes 7 Nucleated RBCs # 0.06 Platelet Estimate Adequate Hypochromasia 2+ Microcytosis 1+ Sodium 138 Potassium 4.7 Chloride 105 Carbon Dioxide 26 Anion Gap 11.7 BUN 47 H Creatinine 1.40 H GFR Calculation 48 BUN/Creatinine Ratio 33.00 H Glucose 142 H Calculated Osmolality 288.7 Calcium 7.2 L Total Bilirubin < 0.39 AST 23 ALT 43 Alkaline Phosphatase 58 Lactate Dehydrogenase 285 H Total Protein 5.9 L Albumin 2.4 L Globulin 3.5 Albumin/Globulin Ratio 0.6 L Blood Type AB POSITIVE Antibody Screen Negative Crossmatch See Detail DS: Provider Date of admission: 03/09/17 10:47 Primary care physician: Soy Larson MD Attending physician on admission: Jesus Unger MD Consults: 03/09/17 12:50 Consult to Pharmacy [CONS] Routine Reason for Pharmacy Consult: Adjust Meds Renal Funct 03/09/17 14:01 Consult to Dietitian [CONS] Routine Reason for Dietitian: TF-Initiate/Manage 03/09/17 15:53 Consult to Physician [CONS] Routine Comment: hx of heart disease and had an appointment today Consulting Provider: Serge Maloney Consulting Provider Notified: Yes When should Consulting Provider be notified: Now Consult to Specialist Group: Cardiology When should Consulting Provider be notified: Now Person Notified: ERROL Date Notified: 03/09/17 Time Notified: 15:56 03/09/17 15:55 Consult to Physician [CONS] Routine Comment: seen last month Consulting Provider: Franky Olson Consulting Provider Notified: Yes When should Consulting Provider be notified: Now Consult to Specialist Group: Gastroenterology When should Consulting Provider be notified: Now Person Notified: MARILYN Date Notified: 03/10/17 Time Notified: 08:46 Discharging clinician: Jesus Unger MD
[2017-03-14] MEDS ORDERED: HEPARIN LOCK FLUSH 500 UNIT/5 ML SYRINGE IV ONE (10:26)
[2017-03-14] MEDS: CILOSTAZOL 50 MG TABLET PO SCH (10:30)
[2017-03-14] MEDS: TICAGRELOR 90 MG TABLET PO SCH (10:30)
[2017-03-14] MEDS: ASPIRIN EC 81 MG TABLET PO SCH (10:30)
[2017-03-14] MEDS: BISOPROLOL 5 MG TABLET PO SCH (10:31)
[2017-03-14] MEDS: PANTOPRAZOLE 40 MG VIAL IV SCH (10:33)
[2017-03-14] MEDS: methylPREDNISolone SOD SUC 40 MG/1 ML VIAL IV SCH (10:34)
[2017-03-14] MEDS: GABAPENTIN 100 MG CAPSULE PO SCH (10:46)
[2017-03-14 11:11] VITALS: BP 150/91
== END 2017-03-14 10:55 | disposition home health service (06) | DRG 682 ==
LOC: N.ED 08:45 → N.EDINP 10:47 → N.4E 11:21
PROVIDERS: ADMIT Specialist; ATTEND Specialist

== ENCOUNTER 2017-03-20 02:48 | Observation (INO) ==
[2017-03-20] MEDS ORDERED: SODIUM CHLORIDE 0.9% 1,000 ML IV STA (03:51)
[2017-03-20] MEDS ORDERED: PANTOPRAZOLE INJ 80 MG in SODIUM CHLORIDE 0.9% 100 ML IV STA (03:51)
[2017-03-20] MEDS ORDERED: PANTOPRAZOLE 40 MG VIAL IV ONE (04:05)
[2017-03-20 04:14] LABS: Basophils % 0.1 % (0.0-0.8); Eosinophils # 0.1 10*3/uL (0.0-0.87); Eosinophils % 0.4 % (0.00-10.9); Hemoglobin 12.6 GM/DL (14.0-18.0); Immature Granulocytes % 0.7 %; Immature Granulocytes Absolute 0.09 #; Lymphocytes # 0.6 10*3/uL (1.4-4.0); Lymphocytes % 4.6 % (21.2-54.2); Mean Corpuscular HGB Conc 33.2 GM/DL (32-36); Mean Corpuscular Hemoglobin 30 PG (27-34); Mean Platelet Volume 10.7 FL (9.6-12.0); Monocytes # 0.9 10*3/uL (0.11-0.8); Monocytes % 6.6 % (1.7-12.7); Neutrophils # 11.4 10*3/uL (1.4-7.4); Neutrophils % 87.6 % (38.7-73.9); Platelet Count 237 T/CUMM (130-400); Red Blood Count 4.22 MC/CUMM (3.8-5.5); Red Cell Distribution Width 17.3 % (9.3-17.3)
[2017-03-20 04:20] LABS: PT Patient Result 11.1 SECS
[2017-03-20 04:30] LABS: Alanine Aminotransferase 33 U/L (16-61); Albumin 2.5 G/DL (3.4-5.0); Alkaline Phosphatase 56 U/L (45-117); Aspartate Amino Transferase 21 U/L (0-37); Blood Urea Nitrogen 40 MG/DL (7-18); Calcium 8.2 MG/DL (8.5-10.1); Glucose 123 MG/DL (74-106); Potassium 4.3 MMOL/L (3.5-5.1); Sodium 143 MMOL/L (136-145); Total Protein 5.8 G/DL (6.4-8.3); Troponin I Only < 0.015 NG/ML (0.00-0.045)
[2017-03-20 05:05] LABS: Lymphocytes 2 % (20-55); Segmented Neutrophils 95 % (50-85)
[2017-03-20 05:06] LABS: Platelet Estimate Normal; Total Cells Counted 100
[2017-03-20] MEDS ORDERED: chlorproMAZINE INJ 25 MG in SODIUM CHLORIDE 0.9% 100 ML IV PRN (05:23)
[2017-03-20] MEDS ORDERED: MAGNESIUM HYDROXIDE SUSP 30 ML UDCUP PO PRN (05:23)
[2017-03-20] MEDS ORDERED: chlorproMAZINE 25 MG TABLET PO PRN (05:23)
[2017-03-20] MEDS ORDERED: ALPRAZolam 0.25 MG TABLET PO PRN (05:23)
[2017-03-20] MEDS ORDERED: BENZTROPINE 2 MG/2 ML AMP IV PRN (05:23)
[2017-03-20] MEDS ORDERED: MYLANTA/LIDO VISC 2:1 300 ML BOTTLE SWISH/SPIT PRN (05:23)
[2017-03-20] MEDS ORDERED: PROMETHAZINE INJ 25 MG in SODIUM CHLORIDE 0.9% 50 ML IV PRN (05:23)
[2017-03-20] MEDS ORDERED: diphenhydrAMINE CAP 25 MG CAPSULE PO PRN (05:23)
[2017-03-20] MEDS ORDERED: guaiFENesin 200 MG/10 ML UDCUP PO PRN (05:23)
[2017-03-20] MEDS ORDERED: TEMAZEPAM 7.5 MG CAPSULE PO PRN (05:23)
[2017-03-20] MEDS ORDERED: LOPERAMIDE 2 MG CAPSULE PO PRN ×2 (05:23)
[2017-03-20] MEDS ORDERED: ACETAMINOPHEN 325 MG TABLET PO PRN (05:23)
[2017-03-20] MEDS ORDERED: chlorproMAZINE INJ 50 MG in SODIUM CHLORIDE 0.9% 100 ML IV PRN (05:23)
[2017-03-20] MEDS ORDERED: ONDANSETRON 4 MG/2 ML VIAL IV PRN (05:23)
[2017-03-20] MEDS ORDERED: LACTULOSE 20 GM/30 ML UDCUP PO PRN (05:23)
[2017-03-20] MEDS ORDERED: traMADol 50 MG TABLET PO PRN (05:23)
[2017-03-20] MEDS ORDERED: ALUMINUM/MAGNES/SIMETH MAX STR 30 ML UDCUP PO PRN (05:23)
[2017-03-20] MEDS ORDERED: MYLANTA/LIDO VISC 2:1 300 ML BOTTLE SWISH/SWAL PRN (05:23)
--- NOTE | 2017-03-20 05:30 | Emergency Department Note ---
I, Lisa Rogers, am scribing for, and in the presence of, Lakia Green MD 03:33. INorma Leanne, MD, personally performed the services described in this documentation, ascribed by Lisa Rogers in my presence, and it is both accurate and complete 529 . Arrival - Arrival Chief Complaint: GI Bleed/Rectal Stated Complaint: cancer pt ,vomiting blood ED Nursing Triage Note: C/O Episode of vomiting blood within the hour of arrival. Pt and reports that it was dark in color. Pt is currently receiving radiation therapy for throat cancer- Last radiation was Monday. Mode of Arrival: Wheelchair Limitations: No Limitations Source: Patient, Significant other Time Seen by Provider: 03/20/17 02:59 - History of Present Illness HPI Narrative: Pt is a 81 y/o male that came to the ED with c/o melena that began 2 days ago. Pt has associated sxs of cough, weakness, discoloration to the nails, and hematochezia but denies CP. Family reports the hematochezia began an hour [employer] and was dark in color. reports pt was d/c from the hospital 6 days ago for dehydration and blood transfusion. states pt did have some melena while in the hospital. Pt reports he has had a GI bleed before. Pt does have throat CA and received radiation and his last radiation was Friday, March 17, 2017. states pt was recently taken off Brilinta and put on Plavix. Pt also has a PEG tube but reports pt does try to eat by mouth but mostly tube feedings. 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 No other complaints/pain in ED. Onset (ago): day(s) Consistency: constant Severity: moderate, severe Severity scale (1-10): 6 Quality: other Allergies/Adverse Reactions: Allergies Allergy/AdvReac Type Severity Reaction Status Date / Time No Known Allergies Allergy Verified 02/25/16 10:37 Home Medications: Home Medications Medication Instructions Recorded Confirmed Type Aspirin EC Tab 81 mg PO DAILY #30 tablet 04/27/16 03/20/17 Rx Metoprolol Tartrate Tab [Lopressor 25 mg PO BID #60 tablet 04/27/16 03/20/17 Rx Tab] Cilostazol 50 mg PO BID 01/30/17 03/20/17 History Atorvastatin [Lipitor] 80 mg PO DAILY 03/20/17 03/20/17 History Clopidogrel [Plavix] 75 mg PO DAILY 03/20/17 03/20/17 History Review of System - Review of System 12 point system: reviewed and no additional remarkable complaints except as stated - Review of System Constitutional: Present: weakness. Absent: chills, fever Respiratory: Present: cough Cardiovascular: Absent: chest pain Gastrointestinal: Present: melena, hematochezia. Absent: abdominal pain, nausea , vomiting Musculoskeletal: Absent: arm pain, back pain, leg pain, neck pain Skin: Absent: rash Neurological: Absent: headache Psychiatric: Absent: anxiety Medical,Surgical,& Family Hx - Medical History Cardio: History of: CAD, [place] (04/25/16 with Synergy stents to the RCA X 2), PVD ( left BKA) Neurology: No history of: Seizures HEENT: History of: Oral Cancer (pharyngeal) Endocrine: History of: Dyslipidemia Respiratory: History of: Respiratory Problems (Throat CA with occasional throat edema from radiation) Musculoskeletal: History of: Amputation (LEFT ABOVE KNEE), Musculoskeletal Problems (Left AKA) Hematology: No history of: Blood Transfusion Reaction Other: History of: Cancer (Throat) - Surgical History Cardiac Surgeries: Sugical HX of: Cardiac Catheterization (04/25/16) Thoracic Surgeries: Patient denies;: Organ Transplant, Lobectomy Abdominal Surgeries: Surgical HX of: Hernia Repair Orthopedic Surgeries: Surgical HX of;: Orthopedic Surgery (Left AKA), Total Hip Replacement (RIGHT) - Family History Family History: Reports;: Family Cancer (Siblings), Family Hypertension (Sister) Denies;: Family Anesthesia Reaction, Family Diabetes, Family Heart Disease, Family Psychiatric Problems, Family Stroke - Social History Smoking Status: Former smoker Frequency of Alcohol Use: None Type of Drug Use: None Exam Vital Signs: Vital Signs Temperature 97.5 F L 03/20/17 02:52 Pulse Rate 113 H 03/20/17 04:17 Respiratory Rate 18 03/20/17 04:17 Blood Pressure 137/83 03/20/17 04:17 O2 Sat by Pulse Oximetry 97 03/20/17 04:17 - General General appearance: alert, in no apparent distress - Head Head exam: Present: atraumatic, normocephalic - Eye Eye exam: Present: PERRL, EOMI - ENT ENT exam: Present: mucous membranes moist. Absent: mucous membranes dry - Neck Neck exam: Present: full ROM. Absent: tenderness - Chest Chest inspection: Present: symmetric chest wall rise. Absent: tenderness - Respiratory Respiratory exam: Present: normal lung sounds bilaterally. Absent: respiratory distress - Cardiovascular Cardiovascular exam: Present: normal rhythm, tachycardia, normal heart sounds - Abdominal Exam Abdominal exam: Present: soft, other (PEG tube). Absent: tenderness - Rectal Exam Rectal exam: Present: heme (+) stool - Extremities Exam Extremities exam: Present: full ROM. Absent: tenderness - Back Exam Back exam: Present: full ROM. Absent: tenderness - Neurological Exam Neurological exam: Present: alert, oriented X3, CN II-XII intact. Absent: motor sensory deficit - Psychiatric Psychiatric exam: Present: normal affect, normal mood - Skin Skin exam: Present: warm, dry Results - Labs CBC & BMP: 03/20/17 02:58 03/20/17 02:58 Lab Results: I have reviewed the patients labs Labs: Laboratory Tests 03/20/17 02:58 WBC 13.0 H Hgb 12.6 L Hct 38.0 L Neut % (Auto) 87.6 H Lymph % (Auto) 4.6 L Neut # (Auto) 11.4 H Lymph # (Auto) 0.6 L [place] # (Auto) 0.9 H Laboratory Tests 03/20/17 02:58 INR 1.0 PT Patient/Control Mix 11.1 Circ Anticoag PTT 28.0 Laboratory Tests 03/20/17 02:58 Chloride 109 H BUN 40 H BUN/Creatinine Ratio 30.00 H Glucose 123 H Calcium 8.2 L Total Protein 5.8 L Albumin 2.5 L Albumin/Globulin Ratio 0.7 L Laboratory Tests 03/20/17 02:58 Segmented Neutrophils 95 H Lymphocytes 2 L Laboratory Tests 03/20/17 02:58 Blood Type AB POSITIVE Antibody Screen Negative - EKG EKG results: interpreted by ERMD EKG shows: atrial fibrillation - Impressions rate 104 Disposition Clinical Impression: Upper gastrointestinal hemorrhage, History of cancer Case discussed with: patient Additional Instructions: admit to dr. elizondo
[2017-03-20] MEDS: PANTOPRAZOLE INJ 200 MG in SODIUM CHLORIDE 0.9% 250 ML IV SCH (05:40)
--- NOTE | 2017-03-20 06:01 | EKG Report ---
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
[2017-03-20 06:16] LABS: Basophils % 0.1 % (0.0-0.8); Eosinophils % 0.3 % (0.00-10.9); Hematocrit 34.4 VOL% (42.0-52.0); Hemoglobin 11.3 GM/DL (14.0-18.0); Immature Granulocytes % 0.5 %; Immature Granulocytes Absolute 0.07 #; Lymphocytes # 0.6 10*3/uL (1.4-4.0); Lymphocytes % 4.4 % (21.2-54.2); Mean Corpuscular HGB Conc 32.8 GM/DL (32-36); Mean Corpuscular Hemoglobin 30 PG (27-34); Mean Corpuscular Volume 90.8 FL (87-102); Mean Platelet Volume 10.3 FL (9.6-12.0); Monocytes % 7.4 % (1.7-12.7); Neutrophils % 87.3 % (38.7-73.9); Platelet Count 216 T/CUMM (130-400); Red Blood Count 3.79 MC/CUMM (3.8-5.5); Red Cell Distribution Width 17.4 % (9.3-17.3); White Blood Count 13.7 T/CUMM (4-12)
[2017-03-20 06:47] LABS: Eosinophils 1 % (0-10); Hypochromasia Slight; Lymphocytes 3 % (20-55); Platelet Estimate Adequate; Segmented Neutrophils 93 % (50-85); Total Cells Counted 100
[2017-03-20 06:50] LABS: Albumin 2.1 G/DL (3.4-5.0); Bilirubin,Total 1.5 MG/DL (0.2-1.0); Calcium 7.8 MG/DL (8.5-10.1); Osmolality,Calculated 300.4 MOS/KG (273-304); Total Protein 5.2 G/DL (6.4-8.3); Uric Acid 6.8 MG/DL (3.5-7.2)
[2017-03-20] MEDS: SODIUM CHLORIDE 0.9% 1,000 ML IV SCH ×2 (07:30→20:50)
--- NOTE | 2017-03-20 08:08 | Oncology History&Physical ---
History of Present Illness Chief complaint: Coffee-ground emesis History of present illness: Mr. Krueger is a 81 year old male carcinoma of the larynx. He is on radiation therapy. He was recently admitted with coffee-ground emesis. He presented to the emergency room again early this morning or late last night with recurrent coffee grounds. Blood work today done at midnight included a white cell count 13,000 with a hemoglobin of 12.6 and a platelet count of 237,000. It was repeated at 4 AM and the hemoglobin was 11.3 with a continued normal white cell count and platelet count. He is having hemoptysis as well as hematemesis. I suspect he may be having some bleeding from the area of radiation because his throat is sore and he is having dysphagia that have gotten a little worse. He has a history of renal failure and severe symptomatic anemia complicating laryngeal Ca. His renal failure has resolved. His serum creatinine has returned to normal.Prior to institution of chemotherapy his serum creatinine was 0.8. It worsened with his first dose of chemotherapy and this was 1 of the reasons why discontinued chemotherapy and went to radiation. He received chemotherapy in early to mid January of this year consisting of Taxotere, 5-FU and cis-yomba shoshone. The dose is included: Taxotere 135 mg IV on day 1 Cis-yomba shoshone 135 mg IV on day 1 5-FU 1350 mg IV over 22 hours daily for 3 consecutive days. He had such significant toxicity that I made the decision to discontinue chemotherapy and proceed to radiation. He is currently receiving radiation therapy. Past medical history: Allergies: He has no known allergies. Additional past medical history includes a history of bladder cancer, myocardial infarction in April 2016, GERD and hyperlipidemia. He has had previous radiation also. Past medical history is positive for laryngeal cancer and cancer of the vocal cords. He was initially diagnosed as having laryngeal cancer in February 2000 from a biopsy of his vocal cord. 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 He did not have a biopsy of this recurrence. Clinically it was recurrent cancer according to Dr. Murray. I presented his case to tumor board. We had a Mediport catheter placed and he was started on the chemotherapy of mentioned. Social history: He smokes a pack of cigarettes daily. He is . Family history is positive for pancreatitis and his brother but negative for pancreatic cancer. Physical examination: General: The patient is acutely and chronically ill-appearing. He actually appears more chronically ill than acutely ill. His appearance is similar to the way he looked at his last discharge. Eyes: He has bilateral arcus senilis with normal lids and conjunctivae. ENT: Very poor dentition with multiple missing teeth. His oral mucosa and pharynx actually appear normal. His trachea is midline. His voice is hoarse. He has tenderness when I checked his upper neck. Neck: His trachea is midline. His thyroid is normal. He has radiation changes over the upper neck and tenderness over the upper neck. Lungs: Breath sounds are coarse bilaterally and he has scattered rhonchi throughout the lung jaquez. Cardiovascular: His heart rhythm is regular with mild tachycardia. There is no jugular venous distention, clubbing, cyanosis or edema. Abdomen: He has no abdominal masses, organomegaly or significant tenderness. He has a PEG tube in the left upper quadrant with some small amount of coffee- ground appearing material in it. Musculoskeletal: The patient has had a left AKA amputation. He has arthritic changes in his hands. Neurologic: Cranial nerves II through XII are intact. There are no focal neurologic deficit. Nodes: I palpate no submandibular, cervical, supraclavicular or axillary adenopathy. Skin: Skin turgor is normal. There is radiation change to the skin of the upper neck and in the mandibular area. Impression: #1: Coffee-ground emesis and hemoptysis probably as result of recent treatment for laryngeal cancer. #2: Laryngeal carcinoma undergoing radiation therapy #3: The patient is currently anemic but he does not have the severe anemia that required blood transfusion at the time of his last admission #4: Prior history of laryngeal carcinoma that was probably is not the same tumor. #5: COPD #6:Coronary artery disease post CABG #7: History of prolonged prothrombin time during last admission probably due to vitamin K deficiency #8: Emaciation, cachexia and malnutrition #9: Hypomagnesemia by history #10: Left AKA amputation Home Medications Medication Instructions Recorded Confirmed Type Aspirin EC Tab 81 mg PO DAILY #30 tablet 04/27/16 03/20/17 Rx Metoprolol Tartrate Tab [Lopressor 25 mg PO BID #60 tablet 04/27/16 03/20/17 Rx Tab] Cilostazol 50 mg PO BID 01/30/17 03/20/17 History Atorvastatin [Lipitor] 80 mg PO DAILY 03/20/17 03/20/17 History Clopidogrel [Plavix] 75 mg PO DAILY 03/20/17 03/20/17 History Allergies Allergy/AdvReac Type Severity Reaction Status Date / Time No Known Allergies Allergy Verified 02/25/16 10:37 Medical,Surgical,& Family Hx - Medical History Cardio: History of: CAD, [place] (04/25/16 with Synergy stents to the RCA X 2), PVD ( left BKA) Neurology: No history of: Seizures HEENT: History of: Oral Cancer (pharyngeal) Endocrine: History of: Dyslipidemia Respiratory: History of: Respiratory Problems (Throat CA with occasional throat edema from radiation) Musculoskeletal: History of: Amputation (LEFT ABOVE KNEE), Musculoskeletal Problems (Left AKA) Hematology: History of: Anemia No history of: Blood Transfusion Reaction Other: History of: Cancer (Throat) - Surgical History Cardiac Surgeries: Sugical HX of: Cardiac Catheterization (04/25/16) Thoracic Surgeries: Patient denies;: Organ Transplant, Lobectomy Abdominal Surgeries: Surgical HX of: Hernia Repair Orthopedic Surgeries: Surgical HX of;: Orthopedic Surgery (Left AKA), Total Hip Replacement (RIGHT) - Family History Family History: Reports;: Family Cancer (Siblings), Family Hypertension (Sister) Denies;: Family Anesthesia Reaction, Family Diabetes, Family Heart Disease, Family Psychiatric Problems, Family Stroke - Social History Smoking Status: Former smoker Frequency of Alcohol Use: None Type of Drug Use: None Exam - Constitutional Vitals: Period Temp Pulse Resp BP Sys/Keith Pulse Ox Last 24 Hr 97.1 F-98.4 F 93-110 17-20 119-126/65-74 96-98 Results - Labs CBC & BMP: 03/20/17 06:09 03/20/17 06:09 Quality Measures - VTE Contraindication to Pharmacological VTE Prophylaxis: Active Bleeding
--- NOTE | 2017-03-20 11:41 | Gastrointestinal Consult Note ---
<Jailene Mart - Last Filed: 03/20/17 11:37> Assessment and Plan (1) GI bleed Status: Acute Assessment and plan: 03/20-recurring report of coffee-ground emesis without abdominal pain. Discharge last week with similar episode. Melena 2 days. Recent EGD 10 days prior with findings of esophagitis. Hemoglobin on admission stable at 12.6. Add Carafate to regimen. Plan an addendum to follow by Dr. Burciaga. Current Visit: No History of Present Illness Chief complaint: Coffee-ground emesis History of present illness: Mr. Krueger is a 81 year old male who was admitted to the hospital today with reports of coffee-ground emesis. Patient has a history of laryngeal carcinoma and is currently receiving radiation therapy. He initially started chemotherapy in January of this year however this was continued due to significant toxicity issues. He is followed by Dr. Unger for this. He was recently discharged from our facility last week after findings of anemia and dark red gastric contents noted in his PEG tubing. Patient underwent an EGD at that time and was found to have esophagitis with no treatable lesions seen at that time. He was transfused 3 units of blood during that hospital stay and was discharged home with a hemoglobin of 11.8. He presents back today with a hemoglobin of 12.6. He states that he had several episodes of vomiting with coffee-ground emesis noted. Denies fever, chills, or hematochezia but does report that he did have some melena for the past couple of days. He has a PEG tube which was recently placed by Dr. Burciaga and he is utilizing this daily as well as taking in some nutrition orally still. He he was discharged home with his Plavix last week however this is currently being held again. Last dose noted to be on yesterday. Patient's last radiation therapy was noted to be March 17. Denies any abdominal pain Home Medications Medication Instructions Recorded Confirmed Type Aspirin EC Tab 81 mg PO DAILY #30 tablet 04/27/16 03/20/17 Rx Metoprolol Tartrate Tab [Lopressor 25 mg PO BID #60 tablet 04/27/16 03/20/17 Rx Tab] Cilostazol 50 mg PO BID 01/30/17 03/20/17 History Atorvastatin [Lipitor] 80 mg PO DAILY 05/08/17 05/08/17 History Clopidogrel [Plavix] 75 mg PO DAILY 03/20/17 03/20/17 History Allergies Allergy/AdvReac Type Severity Reaction Status Date / Time No Known Allergies Allergy Verified 02/25/16 10:37 Medical,Surgical,& Family Hx - Medical History Cardio: History of: CAD, [place] (04/25/16 with Synergy stents to the RCA X 2), PVD ( left BKA) Neurology: No history of: Seizures HEENT: History of: Oral Cancer (pharyngeal) Endocrine: History of: Dyslipidemia Respiratory: History of: Respiratory Problems (Throat CA with occasional throat edema from radiation) Musculoskeletal: History of: Amputation (LEFT ABOVE KNEE), Musculoskeletal Problems (Left AKA) Hematology: History of: Anemia No history of: Blood Transfusion Reaction Other: History of: Cancer (Throat) - Surgical History Cardiac Surgeries: Sugical HX of: Cardiac Catheterization (04/25/16) Thoracic Surgeries: Patient denies;: Organ Transplant, Lobectomy Abdominal Surgeries: Surgical HX of: Hernia Repair Orthopedic Surgeries: Surgical HX of;: Orthopedic Surgery (Left AKA), Total Hip Replacement (RIGHT) - Family History Family History: Reports;: Family Cancer (Siblings), Family Hypertension (Sister) Denies;: Family Anesthesia Reaction, Family Diabetes, Family Heart Disease, Family Psychiatric Problems, Family Stroke - Social History Smoking Status: Former smoker Frequency of Alcohol Use: None Type of Drug Use: None 12 point system: reviewed and no additional remarkable complaints except as stated - Constitutional Constitutional: Present: as per HPI - EENT Eyes: Present: as per HPI Ears: Present: as per HPI Nose, mouth and throat: Present: as per HPI, dysphagia - Cardiovascular Cardiovascular: Present: as per HPI - Respiratory Respiratory: Present: as per HPI - Gastrointestinal Gastrointestinal: Present: as per HPI, coffee ground emesis, melena, nausea - Genitourinary Genitourinary: Present: as per HPI - Musculoskeletal Musculoskeletal: Present: as per HPI - Neurological Neurological: Present: as per HPI - Psychiatric Psychiatric: Present: as per HPI - Endocrine Endocrine: Present: as per HPI - Hematologic/Lymphatic Hematologic/Lymphatic: Present: as per HPI Exam - Constitutional Vitals: Period Temp Pulse Resp BP Sys/Keith Pulse Ox Last 24 Hr 97.1 F-98.4 F 93-110 17-20 119-126/65-74 96-98 General appearance: no acute distress, under weight - Head Head exam: Present: normal inspection, normocephalic - Eye Eye exam: Present: other (Lids and conjunctive are unremarkable). Absent: scleral icterus - ENT ENT exam: Present: normal exam, normal oropharynx - Neck Neck exam: Present: normal inspection - Respiratory Respiratory exam: Present: clear to auscultation bilaterally. Absent: rales, rhonchi, wheezes - Cardiovascular Cardiovascular exam: Present: regular rate and rhythm. Absent: diastolic murmur , JVD, systolic murmur - GI/Abdominal GI/Abdominal exam: Present: normal bowel sounds, soft. Absent: ascites, distended, mass, organomegaly, tenderness - Extremities Exam Extremities exam: Present: normal inspection, full ROM - Back Exam Back exam: Present: normal inspection - Neurological Exam Neurological exam: Present: alert, oriented X3 - Psychiatric Psychiatric exam: Present: normal affect, normal mood - Skin Skin exam: Present: normal color, warm, dry Results - Labs CBC & BMP: 03/20/17 06:09 03/20/17 06:09 Lab Results: I have reviewed the past 24 hour labs Quality Measures - VTE Contraindication to Pharmacological VTE Prophylaxis: Active Bleeding <Nikita Burciaga - Last Filed: 03/20/17 18:23> History of Present Illness History of present illness: Mr. Krueger is a 81 year old male Exam - Constitutional Vitals: Period Temp Pulse Resp BP Sys/Keith Pulse Ox Last 24 Hr 96.2 F-98.4 F 93-110 17-20 111-126/62-74 95-98 Results - Labs CBC & BMP: 03/20/17 06:09 03/20/17 06:09
--- NOTE | 2017-03-20 13:16 | XRay Report ---
XR chest 1V portable Indication: Laryngeal cancer, congestion Comparison: Chest x-ray dated March 12, 2017 Technique: Single frontal view of the chest Findings: Port catheter grossly unchanged. Cardiac mediastinal silhouette is stable in configuration. Chronic change of the lungs without focal consolidation, pleural effusion, or pneumothorax. Osseous and surrounding soft tissue structures appear grossly unchanged. S-shaped curvature of the spine. IMPRESSION: Stable chest x-ray without acute cardiopulmonary process demonstrated. PROCEDURE INTERPRETED AT [facility] [place] DEPARTMENT OF RADIOLOGY Final Report Signed by: Dr Jeremy Fox
[2017-03-20] MEDS: SUCRALFATE 1 GM/10 ML UDCUP PO SCH ×2 (18:00→20:59)
[2017-03-21 00:58] LABS: Apearance,Urine CLEAR (Clear); Bilirubin,Urine Negative (Negative); Blood, Urine Negative (Negative); Glucose,Urine (UA) Negative (Negative); Ketones,Urine Negative (Negative); Nitrite,Urine Negative (Negative); Protein,Urine Negative; RBC,Urine 1 /HPF (0-4); Urine Color Yellow (Yellow); Urine Specific Gravity 1.014 (1.001-1.035); Urine Urobilinogen < 2.0 EU/DL (0.2-1.0); WBC,Urine <1 /HPF (0-6)
[2017-03-21] MEDS: PANTOPRAZOLE INJ 200 MG in SODIUM CHLORIDE 0.9% 250 ML IV SCH (04:45)
[2017-03-21 05:15] LABS: Eosinophils # 0.1 10*3/uL (0.0-0.87); Eosinophils % 0.7 % (0.00-10.9); Hematocrit 30.7 VOL% (42.0-52.0); Hemoglobin 9.6 GM/DL (14.0-18.0); Immature Granulocytes % 0.5 %; Immature Granulocytes Absolute 0.05 #; Lymphocytes # 0.6 10*3/uL (1.4-4.0); Lymphocytes % 6.4 % (21.2-54.2); Mean Corpuscular HGB Conc 31.3 GM/DL (32-36); Mean Corpuscular Hemoglobin 30 PG (27-34); Mean Corpuscular Volume 95.6 FL (87-102); Mean Platelet Volume 10.3 FL (9.6-12.0); Monocytes % 10.9 % (1.7-12.7); Neutrophils # 7.5 10*3/uL (1.4-7.4); Neutrophils % 81.5 % (38.7-73.9); Platelet Count 179 T/CUMM (130-400); Red Blood Count 3.21 MC/CUMM (3.8-5.5); Red Cell Distribution Width 17.2 % (9.3-17.3); White Blood Count 9.2 T/CUMM (4-12)
[2017-03-21 05:44] LABS: Alanine Aminotransferase 32 U/L (16-61); Alkaline Phosphatase 57 U/L (45-117); Aspartate Amino Transferase 25 U/L (0-37); Bilirubin,Total < 0.39 MG/DL (0.2-1.0); Blood Urea Nitrogen 31 MG/DL (7-18); Calcium 7.4 MG/DL (8.5-10.1); Glucose 156 MG/DL (74-106); Magnesium 1.9 MG/DL (1.8-2.4); Osmolality,Calculated 305.1 MOS/KG (273-304); Phosphorous 1.4 MG/DL (2.5-4.9); Potassium 4.1 MMOL/L (3.5-5.1); Prealbumin 18.3 MG/DL (20-40); Sodium 149 MMOL/L (136-145); Total Protein 4.9 G/DL (6.4-8.3)
[2017-03-21] MEDS ORDERED: diphenhydrAMINE CAP 25 MG CAPSULE PO PRN (06:40)
[2017-03-21] MEDS ORDERED: guaiFENesin 200 MG/10 ML UDCUP PO PRN (06:40)
[2017-03-21] MEDS ORDERED: TEMAZEPAM 7.5 MG CAPSULE PO PRN (06:40)
[2017-03-21] MEDS ORDERED: chlorproMAZINE 25 MG TABLET PO PRN (06:40)
[2017-03-21] MEDS ORDERED: ONDANSETRON 4 MG/2 ML VIAL IV PRN (06:40)
[2017-03-21] MEDS ORDERED: ALUMINUM/MAGNES/SIMETH MAX STR 30 ML UDCUP PO PRN (06:40)
[2017-03-21] MEDS ORDERED: MYLANTA/LIDO VISC 2:1 300 ML BOTTLE SWISH/SPIT PRN (06:40)
[2017-03-21] MEDS ORDERED: ACETAMINOPHEN 325 MG TABLET PO PRN (06:40)
[2017-03-21] MEDS ORDERED: BENZTROPINE 2 MG/2 ML AMP IV PRN (06:40)
[2017-03-21] MEDS ORDERED: LACTULOSE 20 GM/30 ML UDCUP PO PRN (06:40)
[2017-03-21] MEDS ORDERED: chlorproMAZINE INJ 50 MG in SODIUM CHLORIDE 0.9% 100 ML IV PRN (06:40)
[2017-03-21] MEDS ORDERED: ALPRAZolam 0.25 MG TABLET PO PRN (06:40)
[2017-03-21] MEDS ORDERED: LOPERAMIDE 2 MG CAPSULE PO PRN ×2 (06:40)
[2017-03-21] MEDS ORDERED: traMADol 50 MG TABLET PO PRN (06:40)
[2017-03-21] MEDS ORDERED: MAGNESIUM HYDROXIDE SUSP 30 ML UDCUP PO PRN (06:40)
[2017-03-21] MEDS ORDERED: MYLANTA/LIDO VISC 2:1 300 ML BOTTLE SWISH/SWAL PRN (06:40)
[2017-03-21] MEDS ORDERED: chlorproMAZINE INJ 25 MG in SODIUM CHLORIDE 0.9% 100 ML IV PRN (06:40)
[2017-03-21] MEDS ORDERED: PROMETHAZINE INJ 25 MG in SODIUM CHLORIDE 0.9% 50 ML IV PRN (06:40)
[2017-03-21] MEDS ORDERED: SODIUM CHLORIDE 0.9% 250 ML IV PRN (07:19)
--- NOTE | 2017-03-21 07:23 | Oncology Progress Note ---
Oncology Subjective PN Interval history: This unfortunate 81-year-old man was admitted with coffee-ground emesis. He is receiving radiation therapy to the larynx for laryngeal carcinoma. He also has esophageal irritation and esophagitis. He received 1 course of chemotherapy that produced extremely severe stomatitis and esophagitis and resulted in such poor oral intake, even with a PEG tube in place, that he was admitted the last time with acute renal failure. Dr. Burciaga is seen him and I appreciate his input. Blood work today includes a white cell count of 9200 with a hemoglobin of 9.6 and a platelet count of 179,000. I am going to go ahead and transfuse 2 units of packed red cells in anticipation of discharge tomorrow. His hemoglobin has fallen fairly slowly. I think he is going to continue to lose as long as he is receiving radiation therapy and has tumor still present. His serum creatinine remains normal, but at the upper limits of normal. His albumin is low, reflecting malnutrition. On physical examination he is oriented and alert. His voice is hoarse and he has some evidence of mild stomatitis. Breath sounds are slightly coarse and he has scattered rhonchi that are easily audible without a stethoscope. Cranial nerves II through XII are intact. There are no focal neurologic deficits. We are going to resume radiation therapy. He remains critically ill. I discussed his case with Dr. Burciaga. There is not much that can be done from the standpoint of gastroenterology because his bleeding is expected under the circumstances as result of the radiation therapy. Exam - Constitutional Vitals: Period Temp Pulse Resp BP Sys/Keith Pulse Ox Last 24 Hr 96.2 F-98.4 F 90-105 18-20 111-160/62-70 94-98 Results - Labs CBC & BMP: 03/21/17 04:30 03/21/17 04:30 Quality Measures - VTE Contraindication to Pharmacological VTE Prophylaxis: Active Bleeding
--- NOTE | 2017-03-21 08:57 | Gastrointestinal Progress Note ---
<NiravmalcolmJailene Arnav - Last Filed: 03/21/17 08:55> Assessment and Plan (1) GI bleed Status: Acute Assessment and plan: 03/21-hemoglobin down today from 11.3-9.6. To be transfused 2 units packed red blood cells. Reports of melena stools this morning. For radiation later today. Continue to monitor H&H and transfuse as necessary. Plan an addendum to follow Dr. Burciaga peer 03/20-recurring report of coffee-ground emesis without abdominal pain. Discharge last week with similar episode. Melena 2 days. Recent EGD 10 days prior with findings of esophagitis. Hemoglobin on admission stable at 12.6. Add Carafate to regimen. Plan an addendum to follow by Dr. Burciaga. Current Visit: No Gastroenterology - PN: Subj Interval history: CC: GI bleed Patient seen awake alert, states he had a restful night. He is scheduled for radiation therapy later this morning. He is noted to have a drop in his hemoglobin from 11.3 on yesterday to 9.6 today. He has 2 units of packed red blood cells pending to transfuse today. He denies any abdominal pain, nausea or vomiting. States he did have some melena stools this morning. BUN/ creatinine ratio noted at 23. Abdomen is soft, nontender. He states the Carafate is helping as far as the pain. ROS: Denies shortness of breath or chest pain Exam (Progress Note) - Constitutional Vitals: Period Temp Pulse Resp BP Sys/Keith Pulse Ox Last 24 Hr 96.2 F-98.2 F 90-105 18-20 111-160/62-70 94-98 General appearance: no acute distress, under weight - Head Head exam: Present: normal inspection, normocephalic - Eye Eye exam: Present: other (Lids and conjunctive are unremarkable). Absent: scleral icterus - ENT ENT exam: Present: normal exam, normal oropharynx - Neck Neck exam: Present: normal inspection - Respiratory Respiratory exam: Present: clear to auscultation bilaterally. Absent: rales, rhonchi, wheezes - Cardiovascular Cardiovascular exam: Present: regular rate and rhythm. Absent: diastolic murmur , JVD, systolic murmur - GI/Abdominal GI/Abdominal exam: Present: normal bowel sounds, soft. Absent: ascites, distended, mass, organomegaly, tenderness - Extremities Exam Extremities exam: Present: normal inspection, full ROM - Back Exam Back exam: Present: normal inspection - Neurological Exam Neurological exam: Present: alert, oriented X3 - Psychiatric Psychiatric exam: Present: normal affect, normal mood - Skin Skin exam: Present: normal color, warm, dry Results - Labs CBC & BMP: 03/21/17 04:30 03/21/17 04:30 Lab Results: I have reviewed the past 24 hour labs <Nikita Burciaga - Last Filed: 03/21/17 18:48> Exam (Progress Note) - Constitutional Vitals: Period Temp Pulse Resp BP Sys/Keith Pulse Ox Last 24 Hr 98.2 F-99.7 F 82-98 16-20 133-162/64-85 92-96 Results - Labs CBC & BMP: 03/21/17 09:30 03/21/17 09:30
[2017-03-21] MEDS: SUCRALFATE 1 GM/10 ML UDCUP PO SCH ×4 (09:36→21:17)
[2017-03-21] MEDS: METOPROLOL TARTRATE 25 MG TABLET PO SCH ×2 (09:36→21:18)
[2017-03-21] MEDS: SODIUM CHLORIDE 0.9% 1,000 ML IV SCH ×2 (09:37→18:36)
[2017-03-21 10:07] LABS: Basophils % 0.1 % (0.0-0.8); Eosinophils % 0.4 % (0.00-10.9); Hematocrit 30.3 VOL% (42.0-52.0); Hemoglobin 9.6 GM/DL (14.0-18.0); Immature Granulocytes % 0.8 %; Immature Granulocytes Absolute 0.08 #; Lymphocytes # 0.7 10*3/uL (1.4-4.0); Lymphocytes % 7.2 % (21.2-54.2); Mean Corpuscular HGB Conc 31.7 GM/DL (32-36); Mean Corpuscular Hemoglobin 30 PG (27-34); Mean Corpuscular Volume 95.6 FL (87-102); Mean Platelet Volume 10.4 FL (9.6-12.0); Monocytes % 10.4 % (1.7-12.7); Neutrophils % 81.1 % (38.7-73.9); Platelet Count 189 T/CUMM (130-400); Red Blood Count 3.17 MC/CUMM (3.8-5.5); Red Cell Distribution Width 17.2 % (9.3-17.3); White Blood Count 9.8 T/CUMM (4-12)
[2017-03-21 10:42] LABS: Alanine Aminotransferase 31 U/L (16-61); Albumin 2.1 G/DL (3.4-5.0); Alkaline Phosphatase 55 U/L (45-117); Aspartate Amino Transferase 22 U/L (0-37); Bilirubin,Total < 0.39 MG/DL (0.2-1.0); Blood Urea Nitrogen 28 MG/DL (7-18); Calcium 7.7 MG/DL (8.5-10.1); Glucose 97 MG/DL (74-106); Magnesium 1.9 MG/DL (1.8-2.4); Potassium 4.3 MMOL/L (3.5-5.1); Sodium 150 MMOL/L (136-145)
[2017-03-21] MEDS: DEXT 5% NACL 0.45% KCL 20 MEQ 20 MEQ/1,000 ML BAG IV SCH (21:16)
[2017-03-21] MEDS: ATORVASTATIN 80 MG TABLET PO SCH (21:18)
[2017-03-21] MEDS: PANTOPRAZOLE 40 MG TABLET PO SCH (21:25)
[2017-03-22 05:24] LABS: Basophils % 0.3 % (0.0-0.8); Eosinophils # 0.1 10*3/uL (0.0-0.87); Eosinophils % 0.7 % (0.00-10.9); Hematocrit 36.4 VOL% (42.0-52.0); Hemoglobin 11.6 GM/DL (14.0-18.0); Immature Granulocytes % 0.9 %; Immature Granulocytes Absolute 0.07 #; Lymphocytes # 0.7 10*3/uL (1.4-4.0); Lymphocytes % 9.6 % (21.2-54.2); Mean Corpuscular HGB Conc 31.9 GM/DL (32-36); Mean Corpuscular Hemoglobin 29 PG (27-34); Mean Corpuscular Volume 91.5 FL (87-102); Mean Platelet Volume 10.3 FL (9.6-12.0); Monocytes # 0.9 10*3/uL (0.11-0.8); Monocytes % 11.2 % (1.7-12.7); Neutrophils # 5.9 10*3/uL (1.4-7.4); Neutrophils % 77.3 % (38.7-73.9); Platelet Count 168 T/CUMM (130-400); Red Blood Count 3.98 MC/CUMM (3.8-5.5); Red Cell Distribution Width 17.2 % (9.3-17.3); White Blood Count 7.6 T/CUMM (4-12)
[2017-03-22 06:03] LABS: Bilirubin,Total 0.7 MG/DL (0.2-1.0); Calcium 7.3 MG/DL (8.5-10.1); Osmolality,Calculated 295.6 MOS/KG (273-304); Potassium 3.8 MMOL/L (3.5-5.1); Total Protein 4.7 G/DL (6.4-8.3)
--- NOTE | 2017-03-22 07:07 | Oncology Progress Note ---
Oncology Subjective PN Interval history: Blood work today includes a white cell count of 7600 with a hemoglobin of 11.6 and a platelet count of 168,000. The patient's comprehensive metabolic profile is relatively stable. He is malnourished and has a serum albumin of 2.0. Exam - Constitutional Vitals: Period Temp Pulse Resp BP Sys/Keith Pulse Ox Last 24 Hr 98.2 F-99.7 F 82-98 16-20 117-162/56-85 92-97 Results - Labs CBC & BMP: 03/22/17 04:48 03/22/17 04:49 Quality Measures - VTE Contraindication to Pharmacological VTE Prophylaxis: Active Bleeding
--- NOTE | 2017-03-22 08:58 | Discharge Summary ---
Hospital Course - Hospital Course Hospital Course: Diagnoses: #1 Upper GI blood loss and/or hemoptysis due to laryngeal carcinoma being radiated and the patient having radiation toxicity #2: Laryngeal carcinoma undergoing radiation therapy #3: The patient is currently anemic but he does not have the severe anemia that required blood transfusion at the time of his last admission #4: Prior history of laryngeal carcinoma that was probably is not the same tumor. #5: COPD #6:Coronary artery disease post CABG #7: History of prolonged prothrombin time during last admission probably due to vitamin K deficiency #8: Emaciation, cachexia and malnutrition #9: Hypomagnesemia by history #10: Left AKA amputation This patient is on radiation therapy for carcinoma of the larynx. He presented to the emergency room with coffee-ground material in his PEG tube and with bright red blood that was either sputum, or emesis or both. It was certainly not a large amount because his hemoglobin had not dropped precipitously. I kept him hospitalized for 2 nights in order to hydrate him and transfuse him. He has now been successfully transfused and his lab work is satisfactory. I am discharging him today. He is off radiation therapy. I will order weekly lab work while he is receiving radiation and I will set up an appointment for him to see me in about a month. I am hoping this patient does not require any additional treatment but if he does, we will be considering targeted therapy as well as further chemotherapy. I am discontinuing all of his antiplatelet medications because he is bleeding. His prognosis remains guarded. - Time spent with patient Time with patient DS: Greater than 30 minutes Specialty Discharge - Follow Up or Referrals Follow up with: Jesus Unger MD [Physician] - Shaq Silva MD [Physician] - 03/27/17 9:30 am () Discharge Plan - Discharge Data Disposition: Disch To Home/Self Care Condition at Discharge: Guarded Discharge Diet: advance to your usual diet Activity: resume usual activities as tolerated Hygiene: no restrictions Weight Bearing at Discharge: weight bear as tolerated Driving: other Contact your physician if you experience:: fever over 101, Difficulty voiding, Redness or swelling, Nausea/Vomiting, Shortness of breath, Bleeding, pain uncontrolled by pain medications - Discharge Medications Continue Metoprolol Tartrate Tab [Lopressor Tab] 25 mg PO BID #60 tablet Discontinued Aspirin EC Tab 81 mg PO DAILY #30 tablet Cilostazol 50 mg PO BID Clopidogrel [Plavix] 75 mg PO DAILY Atorvastatin [Lipitor] 80 mg PO DAILY - Follow Up or Referral Follow Up: Jesus Unger MD [Physician] - Shaq Silva MD [Physician] - 03/27/17 9:30 am () - Forms/Instructions Additional Discharge Instructions: Discharge today. Check with radiation oncology about his radiation schedule. CBC, CMP and LDH weekly. Appointment to see me in 1 month with CBC, CMP and LDH. Exam - Constitutional Vitals: Period Temp Pulse Resp BP Sys/Keith Pulse Ox Last 24 Hr 98.2 F-99.7 F 82-98 16-20 117-162/56-85 92-97 Discharge Results Procedures and tests throughout hospitalization: Pending Orders 03/23/17 04:00 Basic Metabolic Panel MOTH Phosphorous MOTH Labs on day of discharge: Labs from last 24 hours 03/22/17 03/22/17 03/21/17 04:49 04:48 09:30 WBC 7.6 RBC 3.98 D Hgb 11.6 L D Hct 36.4 L MCV 91.5 MCH 29 MCHC 31.9 L RDW 17.2 Plt Count 168 MPV 10.3 Neut % (Auto) 77.3 H Lymph % (Auto) 9.6 L [place] % (Auto) 11.2 Eos % (Auto) 0.7 Baso % (Auto) 0.3 Neut # (Auto) 5.9 Lymph # (Auto) 0.7 L [place] # (Auto) 0.9 H Eos # (Auto) 0.1 Baso # (Auto) 0.0 Immature Gran % 0.9 Nucleated RBC % 0.0 Immature Gran # 0.07 Nucleated RBCs # 0.00 Sodium 146 H 150 H Potassium 3.8 4.3 Chloride 114 H 118 H Carbon Dioxide 23 24 Anion Gap 12.8 12.3 BUN 23 H 28 H Creatinine 1.10 1.20 GFR Calculation 65 59 BUN/Creatinine Ratio 20.00 23.00 H Glucose 135 H 97 Calculated Osmolality 295.6 303.0 Uric Acid 6.0 Calcium 7.3 L 7.7 L Magnesium 1.9 Total Bilirubin 0.70 < 0.39 AST 24 22 ALT 32 31 Alkaline Phosphatase 59 55 Lactate Dehydrogenase 229 Total Protein 4.7 L 5.0 L Albumin 2.0 L 2.1 L Globulin 2.7 2.9 Albumin/Globulin Ratio 0.7 L 0.7 L 03/21/17 09:30 WBC 9.8 RBC 3.17 L Hgb 9.6 L Hct 30.3 L MCV 95.6 MCH 30 MCHC 31.7 L RDW 17.2 Plt Count 189 MPV 10.4 Neut % (Auto) 81.1 H Lymph % (Auto) 7.2 L [place] % (Auto) 10.4 Eos % (Auto) 0.4 Baso % (Auto) 0.1 Neut # (Auto) 8.0 H Lymph # (Auto) 0.7 L [place] # (Auto) 1.0 H Eos # (Auto) 0.0 Baso # (Auto) 0.0 Immature Gran % 0.8 Nucleated RBC % 0.0 Immature Gran # 0.08 Nucleated RBCs # 0.00 Sodium Potassium Chloride Carbon Dioxide Anion Gap BUN Creatinine GFR Calculation BUN/Creatinine Ratio Glucose Calculated Osmolality Uric Acid Calcium Magnesium Total Bilirubin AST ALT Alkaline Phosphatase Lactate Dehydrogenase Total Protein Albumin Globulin Albumin/Globulin Ratio DS: Provider Date of admission: 03/21/17 09:01 Primary care physician: Soy Larson MD Attending physician on admission: Jesus Unger MD Discharging clinician: Jesus Unger MD
[2017-03-22] MEDS ORDERED: HEPARIN LOCK FLUSH 500 UNIT/5 ML SYRINGE IV ONE (10:08)
[2017-03-22] MEDS: METOPROLOL TARTRATE 25 MG TABLET PO SCH (10:11)
[2017-03-22] MEDS: ATORVASTATIN 80 MG TABLET PO SCH (10:11)
[2017-03-22] MEDS: PANTOPRAZOLE 40 MG TABLET PO SCH (10:11)
[2017-03-22] MEDS: SUCRALFATE 1 GM/10 ML UDCUP PO SCH (10:12)
[2017-03-22] MEDS: DEXT 5% NACL 0.45% KCL 20 MEQ 20 MEQ/1,000 ML BAG IV SCH (10:12)
[2017-03-22 10:37] VITALS: BP 139/72
[2017-03-22] MEDS ORDERED: ATORVASTATIN 80 MG TABLET PO SCH (21:00)
== END 2017-03-22 10:40 | disposition home or self-care (01) ==
LOC: N.EDINP 02:48 → N.ED 02:48 → N.TELES 05:36 → N.4E 07:16 → UNDODISIN 03-22 10:40
PROVIDERS: ADMIT Specialist; ATTEND Specialist

== ENCOUNTER 2017-04-20 03:47 | Inpatient (IN) ==
[2017-04-20] MEDS ORDERED: ALBUTEROL/IPRATROPIUM 3 ML NEB RESP TX STA (04:32)
[2017-04-20] MEDS ORDERED: methylPREDNISolone SOD SUC 125 MG/2 ML VIAL IV STA (04:32)
[2017-04-20] MEDS ORDERED: SODIUM CHLORIDE 0.9% 500 ML IV STA (04:32)
--- NOTE | 2017-04-20 04:33 | Emergency Department Note ---
Yuriy Barajas Hilary, am scribing for, and in the presence of, Ramone Sun MD 04:29. Corinne Barajas Charles R, MD, personally performed the services described in this documentation, ascribed by Sindhu Yan in my presence, and it is both accurate and complete 433 . Arrival - Arrival Chief Complaint: Upper Respiratory Stated Complaint: heart /cancer patient sick ED Nursing Triage Note: Patient to triage with c/o of congestion and shortness of breath. states that patient stated sounding bad yesterday. Patient does have history of throat ca. Wheezing is noted at time of triage Mode of Arrival: Wheelchair Limitations: No Limitations Source: Patient, Significant other (), RN Notes Reviewed Time Seen by Provider: 04/20/17 04:02 - History of Present Illness HPI Narrative: Pt is a 81 y/o black male presenting to the ED with c/o cough and SOB which onset yesterday evening. Pts states that he has throat CA and that he finished radiation last Monday. She states that he doesn't eat anything by mouth only by his tube and confirms cough and SOB but denies fever. No other complaints or problems stated in the ED. Onset (ago): day(s) Consistency: constant Severity: moderate Severity scale (1-10): 3 Allergies/Adverse Reactions: Allergies Allergy/AdvReac Type Severity Reaction Status Date / Time No Known Allergies Allergy Verified 04/20/17 03:56 Home Medications: Home Medications Medication Instructions Recorded Confirmed Type Metoprolol Tartrate Tab [Lopressor 25 mg PO BID #60 tablet 04/27/16 04/20/17 Rx Tab] Review of System - Review of System 12 point system: reviewed and no additional remarkable complaints except as stated - Review of System Constitutional: Absent: fever Respiratory: Present: cough, respiratory distress (SOB) Medical,Surgical,& Family Hx - Medical History Cardio: History of: CAD, [place] (04/25/16 with Synergy stents to the RCA X 2), PVD ( left BKA) Neurology: No history of: Seizures HEENT: History of: Oral Cancer (pharyngeal) Endocrine: History of: Dyslipidemia Respiratory: History of: Respiratory Problems (Throat CA with occasional throat edema from radiation) Musculoskeletal: History of: Amputation (LEFT ABOVE KNEE), Musculoskeletal Problems (Left AKA) Hematology: History of: Anemia No history of: Blood Transfusion Reaction Other: History of: Cancer (Throat) - Surgical History Cardiac Surgeries: Sugical HX of: Cardiac Catheterization (04/25/16) Thoracic Surgeries: Patient denies;: Organ Transplant, Lobectomy Abdominal Surgeries: Surgical HX of: Hernia Repair Orthopedic Surgeries: Surgical HX of;: Orthopedic Surgery (Left AKA), Total Hip Replacement (RIGHT) - Family History Family History: Reports;: Family Cancer (Siblings), Family Hypertension (Sister) Denies;: Family Anesthesia Reaction, Family Diabetes, Family Heart Disease, Family Psychiatric Problems, Family Stroke - Social History Smoking Status: Never smoker Frequency of Alcohol Use: None Type of Drug Use: None Exam Vital Signs: Vital Signs Temperature 96.5 F L 04/20/17 03:52 Pulse Rate 110 H 04/20/17 04:10 Respiratory Rate 24 04/20/17 04:10 Blood Pressure 91/54 04/20/17 04:10 O2 Sat by Pulse Oximetry 99 04/20/17 03:52 - General General appearance: alert, in no apparent distress, other (emaciated) - Head Head exam: Present: atraumatic, normocephalic - Eye Eye exam: Present: normal appearance, PERRL, EOMI, other (sunken orbitals) - ENT ENT exam: Present: mucous membranes dry, TM's normal bilaterally, other (large amounts of thick mucus plugs that were manually sucked out) - Neck Neck exam: Present: full ROM, trachea midline, other (radiation dermatitis around lung). Absent: tenderness - Chest Chest inspection: Present: symmetric chest wall rise. Absent: tenderness - Respiratory Respiratory exam: Present: rhonchi (chest exam prior to sucking mucus plugs out there wehre rhonchi in the rt lung after it was clear) - Cardiovascular Cardiovascular exam: Present: normal rhythm, tachycardia, normal heart sounds. Absent: murmur, rubs, gallop - Abdominal Exam Abdominal exam: Present: soft, normal bowel sounds, other (peg tube). Absent: distention, tenderness - Extremities Exam Extremities exam: Present: full ROM, other (left AKA). Absent: tenderness - Back Exam Back exam: Present: full ROM. Absent: tenderness - Neurological Exam Neurological exam: Present: alert, oriented X3, CN II-XII intact. Absent: motor sensory deficit - Psychiatric Psychiatric exam: Present: normal affect, normal mood - Skin Skin exam: Present: warm, dry, intact, normal color. Absent: rash Course Course Narrative: Large amounts of thick mucous plugs were suctioned out the back of the throat patient is breathing better after this is done. Patient has labs suggestive of dehydration sodium 171. Will place patient hospital observation for IV fluids - Consultations Consultation #1: Dr Bob will admit pt Time: 05:27 Results - Labs CBC & BMP: 04/20/17 04:21 04/20/17 04:21 Lab Results: I have reviewed the patients labs Labs: Laboratory Tests 03/09/17 04/20/17 04/20/17 09:31 04:21 04:21 WBC 11.3 RBC 5.45 Hgb 15.9 Hct 55.8 H MCV 102.4 H MCHC 28.5 L RDW 18.6 H MPV 13.3 H Neut % (Auto) 75.7 H Lymph % (Auto) 15.0 L Neut # (Auto) 8.5 H INR 1.1 PT Patient/Control Mix 11.2 Sodium 151 H Chloride 119 H Carbon Dioxide 19 L Anion Gap 17.9 H BUN 130 H Creatinine 2.90 H BUN/Creatinine Ratio 44.00 H Glucose 229 H Calculated Osmolality 347.9 H Lactic Acid 5.5 H Magnesium 2.7 H Albumin 2.6 L Globulin 4.2 H Albumin/Globulin Ratio 0.6 L Disposition Clinical Impression: Bronchitis, Laryngeal cancer, Anemia, Acute dyspnea, Hypernatremia, Acute dehydration, Dyspnea on exertion, History of cancer, COPD (chronic obstructive pulmonary disease), Generalized weakness Case discussed with: patient, patient's family Disposition: Still a Patient Condition: Stable Time of Disposition: 05:30
[2017-04-20] MEDS ORDERED: methylPREDNISolone SOD SUC 125 MG/2 ML VIAL ONE (04:53)
[2017-04-20 04:59] LABS: Basophils # 0.1 10*3/uL (0.0-0.2); Platelet Count 153 T/CUMM (130-400); Red Cell Distribution Width 18.6 % (9.3-17.3)
[2017-04-20 05:06] LABS: Basophils % 0.4 % (0.0-0.8); Eosinophils # 0.2 10*3/uL (0.0-0.87); Eosinophils % 1.5 % (0.00-10.9); Hematocrit 55.8 VOL% (42.0-52.0); Hemoglobin 15.9 GM/DL (14.0-18.0); INR 1.1; Immature Granulocytes % 0.6 %; Immature Granulocytes Absolute 0.07 #; Lymphocytes # 1.7 10*3/uL (1.4-4.0); Mean Corpuscular HGB Conc 28.5 GM/DL (32-36); Mean Corpuscular Hemoglobin 29 PG (27-34); Mean Corpuscular Volume 102.4 FL (87-102); Mean Platelet Volume 13.3 FL (9.6-12.0); Monocytes # 0.8 10*3/uL (0.11-0.8); Monocytes % 6.8 % (1.7-12.7); Neutrophils # 8.5 10*3/uL (1.4-7.4); Neutrophils % 75.7 % (38.7-73.9); PT Patient Result 11.2 SECS; Red Blood Count 5.45 MC/CUMM (3.8-5.5); White Blood Count 11.3 T/CUMM (4-12)
[2017-04-20 05:19] LABS: Alanine Aminotransferase 73 U/L (16-61); Albumin 3.6 G/DL (3.4-5.0); Alkaline Phosphatase 116 U/L (45-117); Aspartate Amino Transferase 55 U/L (0-37); Blood Urea Nitrogen 121 MG/DL (7-18); Calcium 9.7 MG/DL (8.5-10.1); Glucose 137 MG/DL (74-106); Magnesium 4.5 MG/DL (1.8-2.4); Osmolality,Calculated 377.1 MOS/KG (273-304); Total Protein 9.3 G/DL (6.4-8.3)
[2017-04-20 05:21] LABS: Giant Platelets Few; Platelet Estimate Normal
[2017-04-20 05:24] LABS: Sodium > 171 MMOL/L (136-145)
[2017-04-20] MEDS ORDERED: ALBUTEROL/IPRATROPIUM 3 ML NEB RESP TX PRN (06:33)
[2017-04-20] MEDS ORDERED: chlorproMAZINE INJ 50 MG in SODIUM CHLORIDE 0.9% 100 ML IV PRN (06:33)
[2017-04-20] MEDS ORDERED: chlorproMAZINE 25 MG TABLET PO PRN (06:33)
[2017-04-20] MEDS ORDERED: BENZTROPINE 2 MG/2 ML AMP IV PRN (06:33)
[2017-04-20] MEDS ORDERED: MAGNESIUM HYDROXIDE SUSP 30 ML UDCUP PO PRN (06:33)
[2017-04-20] MEDS ORDERED: ALUMINUM/MAGNES/SIMETH MAX STR 30 ML UDCUP PO PRN (06:33)
[2017-04-20] MEDS ORDERED: MYLANTA/LIDO VISC 2:1 300 ML BOTTLE SWISH/SWAL PRN (06:33)
[2017-04-20] MEDS ORDERED: ALPRAZolam 0.25 MG TABLET PO PRN (06:33)
[2017-04-20] MEDS ORDERED: LOPERAMIDE 2 MG CAPSULE PO PRN ×2 (06:33)
[2017-04-20] MEDS ORDERED: PROMETHAZINE INJ 25 MG in SODIUM CHLORIDE 0.9% 50 ML IV PRN (06:33)
[2017-04-20] MEDS ORDERED: ONDANSETRON 4 MG/2 ML VIAL IV PRN (06:33)
[2017-04-20] MEDS ORDERED: LACTULOSE 20 GM/30 ML UDCUP PO PRN (06:33)
[2017-04-20] MEDS ORDERED: diphenhydrAMINE CAP 25 MG CAPSULE PO PRN (06:33)
[2017-04-20] MEDS ORDERED: SODIUM CHLORIDE 0.9% 1,000 ML IV SCH (06:33)
[2017-04-20] MEDS ORDERED: traMADol 50 MG TABLET PO PRN (06:33)
[2017-04-20] MEDS ORDERED: chlorproMAZINE INJ 25 MG in SODIUM CHLORIDE 0.9% 100 ML IV PRN (06:33)
[2017-04-20] MEDS ORDERED: TEMAZEPAM 7.5 MG CAPSULE PO PRN (06:33)
[2017-04-20] MEDS ORDERED: MYLANTA/LIDO VISC 2:1 300 ML BOTTLE SWISH/SPIT PRN (06:33)
--- NOTE | 2017-04-20 07:00 | Oncology History&Physical ---
History of Present Illness Chief complaint: Increasing dyspnea and nausea and vomiting with dehydration History of present illness: Mr. Krueger is a 81 year old male who is actually acutely dehydrated and admitted with hypernatremia and acute renal failure complicating the fact that he has poor oral intake as result of carcinoma of the larynx. Lab work on this admission included a serum sodium of 171 with a chloride of 140 , potassium of 5.0 and a carbon dioxide of 25. His serum creatinine was 2.6 with a urea nitrogen of 121. We are actually repeating this comprehensive metabolic profile to see if the serum sodium is accurate but the patient is clearly dehydrated. His AST is 55 with an ALT of 73 and an LDH of 376. He has been on radiation therapy. He was recently admitted with coffee-ground emesis. He has a history of renal failure and severe symptomatic anemia complicating laryngeal Ca. His renal failure had resolved but it is back now apparently due to poor oral intake. He received chemotherapy in early to mid January of this year consisting of Taxotere, 5-FU and cis-sac & fox of [place]. The dose is included: Taxotere 135 mg IV on day 1 Cis-sac & [place] of [place] 135 mg IV on day 1 5-FU 1350 mg IV over 22 hours daily for 3 consecutive days. He had such significant toxicity that I made the decision to discontinue chemotherapy and proceed to radiation. He is currently receiving radiation therapy. Past medical history: Allergies: He has no known allergies. Additional past medical history includes a history of bladder cancer, myocardial infarction in April 2016, GERD and hyperlipidemia. He has had previous radiation also. Past medical history is positive for laryngeal cancer and cancer of the vocal cords. He was initially diagnosed as having laryngeal cancer in February 2000 from a biopsy of his vocal cord. 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 He did not have a biopsy of this recurrence. Clinically it was recurrent cancer according to Dr. Murray. I presented his case to tumor board. We had a Mediport catheter placed and he was started on the chemotherapy of mentioned. Social history: He smokes a pack of cigarettes daily. He is . Family history is positive for pancreatitis and his brother but negative for pancreatic cancer. Physical examination: General: The patient is acutely and chronically ill-appearing. He actually appears more chronically ill than acutely ill. His appearance is similar to the way he looked at his last discharge. Eyes: He has bilateral arcus senilis with normal lids and conjunctivae. ENT: His oral mucosa is extremely dry. He has very poor dentition with multiple missing teeth. His trachea is midline. His voice is hoarse. He has tenderness when I checked his upper neck. Neck: His trachea is midline. His thyroid is normal. He has radiation changes over the upper neck and tenderness over the upper neck. Lungs: Breath sounds are coarse bilaterally and he has scattered rhonchi throughout the lung jaquez. Cardiovascular: His heart rhythm is regular with mild tachycardia. There is no jugular venous distention, clubbing, cyanosis or edema. Abdomen: He has no abdominal masses, organomegaly or significant tenderness. He has a PEG tube in the left upper quadrant with some small amount of coffee- ground appearing material in it. Musculoskeletal: The patient has had a left AKA amputation. He has arthritic changes in his hands. Neurologic: Cranial nerves II through XII are intact. There are no focal neurologic deficit. Nodes: I palpate no submandibular, cervical, supraclavicular or axillary adenopathy. Skin: Skin turgor is poor. There is radiation change to the skin of the upper neck and in the mandibular area. Impression: #1: Acute dehydration with severe hypernatremia due to poor oral intake and what I suspect is poor understanding of the patient's disease process by him and his . #2: Laryngeal carcinoma recently treated with radiation therapy and previously with chemotherapy. He actually may be a candidate for Opdivo #3: The patient has a history of anemia but currently is not anemic, probably because he is hemoconcentrated. #4: Prior history of laryngeal carcinoma that was probably is not the same tumor. #5: COPD #6:Coronary artery disease post CABG #7: History of prolonged prothrombin time during last admission probably due to vitamin K deficiency #8: Emaciation, cachexia and malnutrition #9: Hypomagnesemia by history #10: Left AKA amputation I am switching the patient's IV fluids to D5W from the normal saline that was ordered on admission. Home Medications Medication Instructions Recorded Confirmed Type Metoprolol Tartrate Tab [Lopressor 25 mg PO BID #60 tablet 04/27/16 04/20/17 Rx Tab] Allergies Allergy/AdvReac Type Severity Reaction Status Date / Time No Known Allergies Allergy Verified 04/20/17 03:56 Medical,Surgical,& Family Hx - Medical History Cardio: History of: CAD, [place] (04/25/16 with Synergy stents to the RCA X 2), PVD ( left BKA) Neurology: No history of: Seizures HEENT: History of: Oral Cancer (pharyngeal) Endocrine: History of: Dyslipidemia Respiratory: History of: Respiratory Problems (Throat CA with occasional throat edema from radiation) Musculoskeletal: History of: Amputation (LEFT ABOVE KNEE), Musculoskeletal Problems (Left AKA) Hematology: History of: Anemia No history of: Blood Transfusion Reaction Other: History of: Cancer (Throat) - Surgical History Cardiac Surgeries: Sugical HX of: Cardiac Catheterization (04/25/16) Thoracic Surgeries: Patient denies;: Organ Transplant, Lobectomy Abdominal Surgeries: Surgical HX of: Hernia Repair Orthopedic Surgeries: Surgical HX of;: Orthopedic Surgery (Left AKA), Total Hip Replacement (RIGHT) - Family History Family History: Reports;: Family Cancer (Siblings), Family Hypertension (Sister) Denies;: Family Anesthesia Reaction, Family Diabetes, Family Heart Disease, Family Psychiatric Problems, Family Stroke - Social History Smoking Status: Never smoker Frequency of Alcohol Use: None Type of Drug Use: None Exam - Constitutional Vitals: Period Temp Pulse Resp BP Sys/Keith Pulse Ox Last 24 Hr 96.5 F 76-110 22-24 91-133/54-75 96-99 Results - Labs CBC & BMP: 04/20/17 04:21 04/20/17 04:21
[2017-04-20 07:23] LABS: Uric Acid 8.1 MG/DL (3.5-7.2)
--- NOTE | 2017-04-20 07:48 | XRay Report ---
XR chest 1V portable Indication: SOB Comparison: Chest x-ray dated March 20, 2017 Technique: Single frontal view of the chest. Findings: The cardiomediastinal silhouette is stable in configuration. There is nonspecific prominence of lung markings suspicious for interstitial pulmonary edema. This is greatest within the lower lungs. Interstitial pneumonia may have similar appearance. Port catheter appears grossly unchanged. Visualized osseous and surrounding soft tissue structures appear grossly unchanged. IMPRESSION: As above. PROCEDURE INTERPRETED AT [facility] DEPARTMENT OF RADIOLOGY Final Report Signed by: Dr Jeremy Fox
[2017-04-20] MEDS: DEXTROSE 5% 1,000 ML IV SCH ×3 (08:32→22:04)
[2017-04-20] MEDS: PANTOPRAZOLE 40 MG TABLET PO SCH (09:22)
[2017-04-20] MEDS: METOPROLOL TARTRATE 25 MG TABLET PO SCH ×2 (09:22→21:08)
[2017-04-20 09:24] LABS: Alanine Aminotransferase 61 U/L (16-61); Alkaline Phosphatase 99 U/L (45-117); Aspartate Amino Transferase 42 U/L (0-37); Bilirubin,Total < 0.39 MG/DL (0.2-1.0); Blood Urea Nitrogen 113 MG/DL (7-18); Glucose 155 MG/DL (74-106); Osmolality,Calculated 375.1 MOS/KG (273-304); Potassium 4.3 MMOL/L (3.5-5.1); Total Protein 7.6 G/DL (6.4-8.3)
[2017-04-20 09:28] LABS: Sodium > 171 MMOL/L (136-145)
[2017-04-20 09:38] LABS: Basophils % 0.3 % (0.0-0.8); Eosinophils # 0.1 10*3/uL (0.0-0.87); Eosinophils % 0.5 % (0.00-10.9); Hemoglobin 12.5 GM/DL (14.0-18.0); Immature Granulocytes % 0.5 %; Immature Granulocytes Absolute 0.07 #; Lymphocytes # 0.6 10*3/uL (1.4-4.0); Lymphocytes % 3.7 % (21.2-54.2); Mean Corpuscular HGB Conc 29.3 GM/DL (32-36); Mean Corpuscular Hemoglobin 30 PG (27-34); Mean Corpuscular Volume 100.7 FL (87-102); Mean Platelet Volume 13.8 FL (9.6-12.0); Monocytes # 0.3 10*3/uL (0.11-0.8); Monocytes % 2.1 % (1.7-12.7); Neutrophils # 14.4 10*3/uL (1.4-7.4); Neutrophils % 92.9 % (38.7-73.9); Platelet Count 147 T/CUMM (130-400); Red Blood Count 4.23 MC/CUMM (3.8-5.5); White Blood Count 15.5 T/CUMM (4-12)
[2017-04-20 09:40] LABS: Hematocrit 42.6 VOL% (42.0-52.0)
[2017-04-20 10:15] LABS: Eosinophils 2 % (0-10); Hypochromasia Slight; Lymphocytes 4 % (20-55); Segmented Neutrophils 92 % (50-85); Total Cells Counted 100
[2017-04-20 10:16] LABS: Macrocytosis 1+; Platelet Estimate Adequate
[2017-04-20 10:17] LABS: Misc Morphology 3
--- NOTE | 2017-04-20 15:20 | Oncology Progress Note ---
Oncology Subjective PN Interval history: I just ordered a CBC and comprehensive metabolic profile on this patient daily for 6 days starting tomorrow. Exam - Constitutional Vitals: Period Temp Pulse Resp BP Sys/Keith Pulse Ox Last 24 Hr 96.5 F-98.3 F 76-110 18-24 91-142/54-75 93-99 Results - Labs CBC & BMP: 04/20/17 07:30 04/20/17 07:30
[2017-04-21 04:40] LABS: Basophils % 0.1 % (0.0-0.8); Eosinophils % 0.1 % (0.00-10.9); Hematocrit 35.5 VOL% (42.0-52.0); Hemoglobin 10.7 GM/DL (14.0-18.0); Immature Granulocytes % 0.6 %; Lymphocytes % 6.1 % (21.2-54.2); Mean Corpuscular HGB Conc 30.1 GM/DL (32-36); Mean Corpuscular Hemoglobin 30 PG (27-34); Mean Corpuscular Volume 97.8 FL (87-102); Mean Platelet Volume 13.1 FL (9.6-12.0); Monocytes # 1.3 10*3/uL (0.11-0.8); Monocytes % 8.2 % (1.7-12.7); NRBC # 0.02 10*3/uL; Neutrophils # 13.3 10*3/uL (1.4-7.4); Neutrophils % 84.9 % (38.7-73.9); Platelet Count 126 T/CUMM (130-400); Red Blood Count 3.63 MC/CUMM (3.8-5.5); Red Cell Distribution Width 17.3 % (9.3-17.3); White Blood Count 15.7 T/CUMM (4-12)
[2017-04-21 05:07] LABS: Hypochromasia Slight; Lymphocytes 6 % (20-55); Ovalocytes Slight; Platelet Estimate Normal; Segmented Neutrophils 88 % (50-85); Total Cells Counted 100
[2017-04-21 05:08] LABS: Macrocytosis Slight
[2017-04-21 05:11] LABS: Albumin 2.8 G/DL (3.4-5.0); Calcium 8.9 MG/DL (8.5-10.1); Osmolality,Calculated 348.3 MOS/KG (273-304); Total Protein 6.7 G/DL (6.4-8.3)
[2017-04-21] MEDS ORDERED: HEPARIN LOCK FLUSH 500 UNIT/5 ML SYRINGE IV ONE (05:37)
[2017-04-21 06:47] LABS: Apearance,Urine CLEAR (Clear); Bilirubin,Urine Negative (Negative); Blood, Urine Negative (Negative); Glucose,Urine (UA) Negative (Negative); Ketones,Urine Negative (Negative); Nitrite,Urine Negative (Negative); Protein,Urine Negative; RBC,Urine <1 /HPF (0-4); Squamous Epithelial Cell,Urine Occasional /HPF (0-10); Urine Color Yellow (Yellow); Urine Specific Gravity 1.017 (1.001-1.035); Urine Urobilinogen < 2.0 EU/DL (0.2-1.0); WBC,Urine <1 /HPF (0-6)
--- NOTE | 2017-04-21 07:23 | Oncology Progress Note ---
Oncology Subjective PN Interval history: This patient with head and neck cancer was admitted with nausea and vomiting and a serum sodium of greater than 171. He is on hydration and his serum sodium today is 162. He also has renal failure it is apparently remaining acute renal failure and his serum creatinine today is down to 2.2 from 2.6 yesterday. He was hemoconcentrated on admission and with hydration his hemoglobin is dropped to 10.7. He has needed blood transfusions in the past so we may need transfusions during this hospital stay. He is on D5W and the IV fluids will probably need to be changed at some point, most likely add potassium. In addition, his CBC is acceptable presently but I would not be surprised if his hemoglobin did not drop with rehydration and he might need transfusion. He is surprisingly oriented and alert although he has never had good memory. Cranial nerves II through XII are intact. There are no focal neurologic deficits. His oral mucosa is dry. He has very poor dentition. Respirations are unlabored. Heart sounds are normal. Lungs are clear but I am not surprised with this. He has a PEG tube in place that is apparently functioning well. There is no abdominal distention or ascites. Lab work is ordered daily. Exam - Constitutional Vitals: Period Temp Pulse Resp BP Sys/Keith Pulse Ox Last 24 Hr 97.8 F-98.6 F 87-109 18-20 119-162/57-71 95-99 Results - Labs CBC & BMP: 04/21/17 04:09 04/21/17 04:09
[2017-04-21] MEDS: DEXTROSE 5% 1,000 ML IV SCH ×5 (07:25→16:03)
--- NOTE | 2017-04-21 08:16 | XRay Report ---
XR chest 1V portable Indication: SOB Comparison: Chest x-ray dated April 20, 2017 Technique: Single frontal view of the chest. Findings: The cardiomediastinal silhouette is stable in configuration. Mildly improved bilateral lower lung opacities suggesting improved atelectasis and/or pulmonary edema/pneumonia with mild residual remaining. Port catheter appears grossly unchanged. Visualized osseous and surrounding soft tissue structures appear grossly unchanged. IMPRESSION: As above. PROCEDURE INTERPRETED AT [facility] DEPARTMENT OF RADIOLOGY Final Report Signed by: Dr Jeremy Fox
[2017-04-21] MEDS: METOPROLOL TARTRATE 25 MG TABLET PO SCH ×2 (09:58→20:43)
[2017-04-21] MEDS: PANTOPRAZOLE 40 MG TABLET PO SCH (09:58)
[2017-04-21 12:25] LABS: Bilirubin,Total 0.6 MG/DL (0.2-1.0)
[2017-04-21] MEDS: guaiFENesin 200 MG/10 ML UDCUP PO PRN (17:11)
--- NOTE | 2017-04-21 19:51 | XRay Report ---
Portable chest. Indication: Congestion. Comparison: April 21, 2017. 5:55 AM. The heart is normal in size. There is uncoiling of the thoracic aorta which often indicates chronic hypertension. There are patchy areas of opacity at each lung base, similar to the previous exam, likely related to volume loss. A Chemo-Port is in satisfactory position. No pneumothorax. No pleural effusion. No dense consolidation. Degenerative changes of both shoulders. Mild scoliosis of the thoracic spine. Impression: Stable basilar opacities consistent with atelectasis. PROCEDURE INTERPRETED AT [facility] DEPARTMENT OF RADIOLOGY Final Report Signed by: Dr. Jackie Hua
[2017-04-21] MEDS: ALBUTEROL/IPRATROPIUM 3 ML NEB RESP TX SCH ×2 (19:52→23:21)
[2017-04-21] MEDS: MORPHINE 2 MG/1 ML SYRINGE IV PRN (20:35)
[2017-04-22] MEDS: ALBUTEROL/IPRATROPIUM 3 ML NEB RESP TX SCH ×6 (02:51→23:43)
[2017-04-22] MEDS: MORPHINE 2 MG/1 ML SYRINGE IV PRN ×2 (05:05→11:50)
[2017-04-22] MEDS: DEXTROSE 5% 1,000 ML IV SCH ×2 (05:07→14:52)
[2017-04-22 05:33] LABS: Basophils % 0.2 % (0.0-0.8); Eosinophils # 0.3 10*3/uL (0.0-0.87); Eosinophils % 2.2 % (0.00-10.9); Hematocrit 33.6 VOL% (42.0-52.0); Hemoglobin 10.3 GM/DL (14.0-18.0); Immature Granulocytes % 0.4 %; Immature Granulocytes Absolute 0.05 #; Lymphocytes # 0.8 10*3/uL (1.4-4.0); Lymphocytes % 6.7 % (21.2-54.2); Mean Corpuscular HGB Conc 30.7 GM/DL (32-36); Mean Corpuscular Hemoglobin 30 PG (27-34); Mean Corpuscular Volume 97.1 FL (87-102); Mean Platelet Volume 13.3 FL (9.6-12.0); Monocytes # 1.2 10*3/uL (0.11-0.8); Monocytes % 9.8 % (1.7-12.7); Neutrophils # 9.9 10*3/uL (1.4-7.4); Neutrophils % 80.7 % (38.7-73.9); Platelet Count 108 T/CUMM (130-400); Red Blood Count 3.46 MC/CUMM (3.8-5.5); Red Cell Distribution Width 17.2 % (9.3-17.3); White Blood Count 12.3 T/CUMM (4-12)
[2017-04-22 07:17] LABS: Albumin 2.7 G/DL (3.4-5.0); Bilirubin,Total 0.5 MG/DL (0.2-1.0); Calcium 8.6 MG/DL (8.5-10.1); Osmolality,Calculated 320.7 MOS/KG (273-304); Potassium 3.8 MMOL/L (3.5-5.1); Total Protein 6.4 G/DL (6.4-8.3)
[2017-04-22 07:38] LABS: Hypochromasia Slight; Microcytosis 1+
--- NOTE | 2017-04-22 10:02 | Oncology Progress Note ---
Assessment and Plan (1) Laryngeal cancer Status: Chronic Assessment and plan: Completed NAC followed by radiation therapy to primary 2 weeks ago - admitted for failure to thrive and dehydration - since admission decline in clinical status with worsening mental status, increased respiratory rate, and difficulty with secretions - per patient and families wish patient changed to DNI/DNR - and daughters at bedside - will continue with supportive measures of fluid resuscitation, aggressive suctioning, and addition of scopolamine patch - will make morphine 1 mg IV Q4h around the clock for respiratory distress Current Visit: Yes (2) Hypernatremia Status: Acute Assessment and plan: sodium improving with D5W - continue with rate of 75 cc/hr - concern for changes in mental status and sodium changes however family does not wish for imaging of SENIOR ACCOUNT EXECUTIVE - will continue with supportive measures Current Visit: Yes (3) Acute renal failure Status: Chronic Assessment and plan: - improving with fluid resuscitation Current Visit: No Oncology Subjective PN Interval history: 81 year old male with PMHx of head and neck cancer s/p neoadjuvant chemotherapy followed by radiation. Patient completed radiation 2 weeks ago. Patient admitted for failure to thrive and dehydration with a sodium 171. Since admission patients sodium has improved with fluid resuscitation however patient has had increased secretions and altered mental status. Patient had expressed to family prior to change in status and family supportive of patients wish for do not resuscitation. Today patient opens eyes to command, continues gargle significantly, and tachypneic. Family does not wish for aggressive imaging measures. Family does not believe patient is in distress and wish to continue current supportive measures. Exam - Constitutional Vitals: Period Temp Pulse Resp BP Sys/Keith Pulse Ox Last 24 Hr 97.6 F-100.1 F 83-117 16-86 111-148/66-74 91-99 General appearance: other (moderate distress with difficulty with secretions, increased respiratory rate and decreased mental status to clear airway) - Eye Eye Exam: Present: other (opens eyes to command) Pupils: Absent: PERRL - Respiratory Respiratory exam: Present: CTAB, accessory muscle use - Cardiovascular Cardiovascular exam: Present: tachycardia - GI/Abdominal GI/Abdominal exam: Present: soft, other (PEG tube). Absent: ascites, distended , mass, tenderness - Extremities Exam Extremities exam: Absent: edema - Neurological Exam Neurological exam: Present: altered - Skin Skin exam: Present: warm Results - Labs CBC & BMP: 04/22/17 04:00 04/22/17 04:00
[2017-04-22] MEDS: METOPROLOL TARTRATE 25 MG TABLET PO SCH ×2 (11:10→20:30)
[2017-04-22] MEDS: PANTOPRAZOLE 40 MG TABLET PO SCH (11:11)
[2017-04-22] MEDS: MORPHINE 2 MG/1 ML SYRINGE IV SCH ×4 (11:50→22:22)
[2017-04-22] MEDS: SCOPOLAMINE 1.5 MG PATCH TRANSDERM SCH (11:50)
[2017-04-23] MEDS: MORPHINE 2 MG/1 ML SYRINGE IV SCH ×7 (02:21→23:30)
[2017-04-23] MEDS: ALBUTEROL/IPRATROPIUM 3 ML NEB RESP TX SCH ×5 (02:45→19:24)
[2017-04-23] MEDS: DEXTROSE 5% 1,000 ML IV SCH ×3 (03:51→21:47)
[2017-04-23] MEDS: ACETAMINOPHEN 325 MG TABLET PO PRN ×2 (04:35→14:11)
[2017-04-23] MEDS: MORPHINE 2 MG/1 ML SYRINGE IV PRN ×5 (04:39→21:43)
[2017-04-23 04:56] LABS: Basophils % 0.2 % (0.0-0.8); Eosinophils # 0.2 10*3/uL (0.0-0.87); Eosinophils % 1.7 % (0.00-10.9); Hematocrit 30.8 VOL% (42.0-52.0); Hemoglobin 9.5 GM/DL (14.0-18.0); Immature Granulocytes % 0.4 %; Immature Granulocytes Absolute 0.04 #; Lymphocytes # 0.6 10*3/uL (1.4-4.0); Lymphocytes % 5.9 % (21.2-54.2); Mean Corpuscular HGB Conc 30.8 GM/DL (32-36); Mean Corpuscular Hemoglobin 30 PG (27-34); Mean Corpuscular Volume 95.7 FL (87-102); Monocytes # 1.1 10*3/uL (0.11-0.8); Neutrophils # 7.5 10*3/uL (1.4-7.4); Neutrophils % 79.8 % (38.7-73.9); Platelet Count 102 T/CUMM (130-400); Red Blood Count 3.22 MC/CUMM (3.8-5.5); Red Cell Distribution Width 17.2 % (9.3-17.3); White Blood Count 9.4 T/CUMM (4-12)
[2017-04-23 05:45] LABS: Albumin 2.4 G/DL (3.4-5.0); Calcium 8.6 MG/DL (8.5-10.1); Osmolality,Calculated 321.9 MOS/KG (273-304); Potassium 4.3 MMOL/L (3.5-5.1)
[2017-04-23 06:17] LABS: Band Neutrophils 21 % (0-10); Eosinophils 2 % (0-10); Lymphocytes 6 % (20-55); Metamyelocytes 1 %; Platelet Estimate Adequate; Segmented Neutrophils 54 % (50-85); Total Cells Counted 100
--- NOTE | 2017-04-23 09:30 | Oncology Progress Note ---
Assessment and Plan (1) Laryngeal cancer Status: Chronic Assessment and plan: Completed NAC followed by radiation therapy to primary 2 weeks ago - admitted for failure to thrive and dehydration - since admission decline in clinical status with worsening mental status, increased respiratory rate, and difficulty with secretions - per patient and families wish patient changed to DNI/DNR - and daughters at bedside - increase D5W to 125 cc/hr secondary to continued hypernatremia and stable Cr - continue scopolamine patch - holding tube feeds since suctioning appears to be tube feeds - addition of zosyn given concern for aspiration pneumonia with temp 100.4 and increased bands - will check a urine culture, blood culture, and repeat CXR - continue morphine 1 mg IV Q4h around the clock for respiratory distress Current Visit: Yes (2) Hypernatremia Status: Acute Assessment and plan: sodium improving with D5W - increase rate of 125 cc/hr - concern for changes in mental status and sodium changes however family does not wish for imaging of RADIOLOGIC THERAPIST - will continue with supportive measures Current Visit: Yes (3) Acute renal failure Status: Chronic Assessment and plan: - improved with fluid resuscitation Current Visit: No Oncology Subjective PN Interval history: 81 yeaar old male with PMHx of head and neck cancer s/p treatment with NAC followed by radiation completed 2 weeks ago. Patient admitted for dehydration, Na 1671, altered mental status. Since admission patient has had increased difficulty with secretions, increased respiratory rate, and declining mental status. Today patient continues to have significant gargling during respirations. Respiratory continues with deep suctioning removing what appears to be tube feeds. Sodium and Cr stable from yesterday. Had a low grade temp 100.4 and increased bands on his CBC. Family continues to not want aggressive interventions. Exam - Constitutional Vitals: Period Temp Pulse Resp BP Sys/Keith Pulse Ox Last 24 Hr 98.5 F-100.4 F 89-132 12-28 123-144/58-76 93-100 General appearance: other (increased respiratory rate with difficulty with secretions and declined mental status) - Respiratory Respiratory exam: Present: CTAB - Cardiovascular Cardiovascular exam: Present: tachycardia - GI/Abdominal GI/Abdominal exam: Present: soft. Absent: ascites, distended, firm, guarding, mass - Extremities Exam Extremities exam: Absent: edema - Neurological Exam Neurological exam: Present: altered, other (not opening eyes today to command) - Skin Skin exam: Present: warm Results - Labs CBC & BMP: 04/23/17 04:00 04/23/17 04:00
[2017-04-23] MEDS: PIPERACILLIN/TAZOBACTAM 3,375 MG in SODIUM CHLORIDE 0.9% 100 ML IV SCH ×2 (09:42→17:11)
[2017-04-23] MEDS: PANTOPRAZOLE 40 MG TABLET PO SCH (09:52)
[2017-04-23] MEDS: METOPROLOL TARTRATE 25 MG TABLET PO SCH ×2 (09:52→21:48)
[2017-04-23 10:12] LABS: Amorphous Crystals,Urine Occasional /HPF (Few); Apearance,Urine Slightly Hazy (Clear); Bacteria,Urine Occasional /HPF (Few); Bilirubin,Urine Negative (Negative); Blood, Urine Negative (Negative); Glucose,Urine (UA) Negative (Negative); Ketones,Urine Negative (Negative); Nitrite,Urine Negative (Negative); Protein,Urine Negative; RBC,Urine 2 /HPF (0-4); Urine Color Yellow (Yellow); Urine Specific Gravity 1.014 (1.001-1.035); Urine Urobilinogen < 2.0 EU/DL (0.2-1.0); WBC,Urine 2 /HPF (0-6)
[2017-04-24] MEDS: PIPERACILLIN/TAZOBACTAM 3,375 MG in SODIUM CHLORIDE 0.9% 100 ML IV SCH ×2 (01:16→10:03)
[2017-04-24] MEDS: ALBUTEROL/IPRATROPIUM 3 ML NEB RESP TX SCH ×6 (02:47→21:26)
[2017-04-24] MEDS: MORPHINE 2 MG/1 ML SYRINGE IV SCH ×6 (04:12→22:56)
[2017-04-24] MEDS: MORPHINE 2 MG/1 ML SYRINGE IV PRN ×3 (04:17→18:08)
[2017-04-24] MEDS: ACETAMINOPHEN 325 MG TABLET PO PRN (04:19)
[2017-04-24 04:49] LABS: Basophils % 0.2 % (0.0-0.8); Eosinophils # 0.1 10*3/uL (0.0-0.87); Eosinophils % 0.7 % (0.00-10.9); Hematocrit 27.2 VOL% (42.0-52.0); Hemoglobin 8.4 GM/DL (14.0-18.0); Immature Granulocytes Absolute 0.13 #; Lymphocytes # 0.4 10*3/uL (1.4-4.0); Lymphocytes % 3.3 % (21.2-54.2); Mean Corpuscular HGB Conc 30.9 GM/DL (32-36); Mean Corpuscular Hemoglobin 29 PG (27-34); Mean Corpuscular Volume 95.1 FL (87-102); Mean Platelet Volume 13.6 FL (9.6-12.0); Monocytes # 0.8 10*3/uL (0.11-0.8); Monocytes % 5.9 % (1.7-12.7); Neutrophils % 88.9 % (38.7-73.9); Platelet Count 96 T/CUMM (130-400); Red Blood Count 2.86 MC/CUMM (3.8-5.5); Red Cell Distribution Width 17.3 % (9.3-17.3); White Blood Count 13.5 T/CUMM (4-12)
[2017-04-24 05:30] LABS: Bilirubin,Total 0.9 MG/DL (0.2-1.0); Calcium 8.6 MG/DL (8.5-10.1); Osmolality,Calculated 302.6 MOS/KG (273-304); Potassium 4.1 MMOL/L (3.5-5.1); Total Protein 5.6 G/DL (6.4-8.3)
[2017-04-24 05:37] LABS: Magnesium 2.8 MG/DL (1.8-2.4); Phosphorous 3.9 MG/DL (2.5-4.9); Prealbumin 13.9 MG/DL (20-40)
[2017-04-24 05:57] LABS: Band Neutrophils 11 % (0-10); Eosinophils 1 % (0-10); Lymphocytes 2 % (20-55); Segmented Neutrophils 83 % (50-85); Total Cells Counted 100
[2017-04-24 05:58] LABS: Anisocytosis 1+; Hypochromasia 1+; Microcytosis 1+; Platelet Estimate Decreased
[2017-04-24] MEDS: DEXTROSE 5% 1,000 ML IV SCH ×2 (06:28→23:07)
[2017-04-24] MEDS ORDERED: SODIUM CHLORIDE 0.9% 250 ML IV PRN (07:32)
--- NOTE | 2017-04-24 07:32 | Oncology Progress Note ---
Oncology Subjective PN Interval history: White cell count today is 13,500 with a hemoglobin of 8.4 and a platelet count of 96,000. Electrolytes today have improved significantly. The patient's serum sodium is down to 146 with a potassium of 4.1 and the urea nitrogen is down to 45 today from 113 on April 20. The serum creatinine today is down to 1.9 from 2.6 on April 20. I am ordering blood transfusions today while we continue hydration. However, slowing IV fluid rate down. He has congestion with diffuse rhonchi. He has tachycardia. He is weaker and not as responsive because of the tachypnea. I am also checking a chest x-ray today. This is a patient with carcinoma head and neck post radiation therapy with COPD , acute renal failure, hypernatremia and profound debilitation. He is critically ill. We are treating him supportively and symptomatically. I am not sure how much we have to offer in the way of therapeutic measures at this point because of his severe debilitation. Exam - Constitutional Vitals: Period Temp Pulse Resp BP Sys/Keith Pulse Ox Last 24 Hr 98.7 F-101.1 F 84-124 18-26 133-161/61-76 90-98 Results - Labs CBC & BMP: 04/24/17 04:00 04/24/17 04:00
--- NOTE | 2017-04-24 08:26 | XRay Report ---
Portable chest Date: 04/24/2017 Clinical history: Shortness of breath Comparison: 04/21/2017 Technique: Portable AP sitting chest Findings: The heart is normal in size with uncoiling the aorta. Stable right IJ venous access catheter. Progressive diffuse parenchymal findings in both mid to lower lung zones. Stable mediastinum and osseous structures. Impression: Progressive atelectasis/infiltration in both mid to lower lung zones. Stable venous access catheter. PROCEDURE INTERPRETED AT [facility] DEPARTMENT OF RADIOLOGY Final Report Signed by: Dr. Vicky Anderson
[2017-04-24] MEDS ORDERED: FUROSEMIDE 40 MG/4 ML VIAL IV ONE (14:37)
[2017-04-24] MEDS: METOPROLOL TARTRATE 25 MG TABLET PO SCH ×2 (17:49→23:40)
[2017-04-24] MEDS: MULTIVITAMIN LIQUID (CENTRUM) 60 ML BOTTLE PO SCH (18:40)
[2017-04-24] MEDS: PANTOPRAZOLE 40 MG TABLET PO SCH (20:02)
[2017-04-25] MEDS: ALBUTEROL/IPRATROPIUM 3 ML NEB RESP TX SCH ×7 (00:02→23:00)
[2017-04-25] MEDS: DEXTROSE 5% 1,000 ML IV SCH (02:33)
[2017-04-25] MEDS: PIPERACILLIN/TAZOBACTAM 3,375 MG in SODIUM CHLORIDE 0.9% 100 ML IV SCH ×4 (02:41→22:45)
[2017-04-25] MEDS: MORPHINE 2 MG/1 ML SYRINGE IV SCH ×2 (03:58→07:53)
[2017-04-25 05:26] LABS: Basophils # 0.1 10*3/uL (0.0-0.2); Basophils % 0.3 % (0.0-0.8); Eosinophils # 0.1 10*3/uL (0.0-0.87); Eosinophils % 0.5 % (0.00-10.9); Hematocrit 33.7 VOL% (42.0-52.0); Immature Granulocytes % 1.1 %; Immature Granulocytes Absolute 0.19 #; Lymphocytes # 0.5 10*3/uL (1.4-4.0); Lymphocytes % 2.7 % (21.2-54.2); Mean Corpuscular HGB Conc 32.3 GM/DL (32-36); Mean Corpuscular Hemoglobin 29 PG (27-34); Mean Corpuscular Volume 89.6 FL (87-102); Mean Platelet Volume 12.6 FL (9.6-12.0); Monocytes # 1.1 10*3/uL (0.11-0.8); Monocytes % 6.1 % (1.7-12.7); Neutrophils # 15.3 10*3/uL (1.4-7.4); Neutrophils % 89.3 % (38.7-73.9); Platelet Count 109 T/CUMM (130-400); Red Cell Distribution Width 17.1 % (9.3-17.3); White Blood Count 17.1 T/CUMM (4-12)
[2017-04-25 05:41] LABS: Hemoglobin 10.9 GM/DL (14.0-18.0); Red Blood Count 3.76 MC/CUMM (3.8-5.5)
[2017-04-25 05:49] LABS: Band Neutrophils 2 % (0-10); Eosinophils 1 % (0-10); Lymphocytes 2 % (20-55); Platelet Estimate Decreased; Segmented Neutrophils 92 % (50-85); Total Cells Counted 100
[2017-04-25 05:58] LABS: Albumin 1.9 G/DL (3.4-5.0); Bilirubin,Total 0.9 MG/DL (0.2-1.0); Calcium 8.4 MG/DL (8.5-10.1); Osmolality,Calculated 295.8 MOS/KG (273-304); Potassium 3.4 MMOL/L (3.5-5.1); Total Protein 5.8 G/DL (6.4-8.3)
--- NOTE | 2017-04-25 07:23 | Oncology Progress Note ---
Oncology Subjective PN Interval history: Mr. Krueger is deteriorating. His mental status is worse and is progressively more tachypneic and dyspneic. He was transfused yesterday and his hemoglobin this morning is 10.9. His platelet count is up to 109,000 today. He was admitted with a serum sodium of greater than 177. Today his sodium is finally normal at 144 and he has a slightly low serum potassium of 3.4. His creatinine continues to fall. It is 1.8 today with a BUN of 41. His overall pulmonary condition is worsening. He is having episodes of apnea now. He has coarse rhonchi throughout lung jaquez. He has significant congestion. He has tachycardia. He is poorly responsive. His family wishes for comfort measures only and we will honor that request. I am going to give him Lasix and I am going to check home morphine doses for him. Also we will place a Katz catheter. Exam - Constitutional Vitals: Period Temp Pulse Resp BP Sys/Keith Pulse Ox Last 24 Hr 98.2 F-100.8 F 90-122 20-32 113-155/56-76 91-99 Results - Labs CBC & BMP: 04/25/17 05:02 04/25/17 05:02
[2017-04-25] MEDS ORDERED: FUROSEMIDE 40 MG/4 ML VIAL IV ONE (08:43)
[2017-04-25] MEDS ORDERED: SCOPOLAMINE 1.5 MG PATCH TRANSDERM SCH (09:00)
[2017-04-25] MEDS: MORPHINE 2 MG/1 ML SYRINGE IV PRN (10:42)
[2017-04-25] MEDS: DEXT 5% NACL 0.45% KCL 20 MEQ 20 MEQ/1,000 ML BAG IV SCH (10:46)
[2017-04-25 12:20] LABS: Amorphous Crystals,Urine Few /HPF (Few); Apearance,Urine CLOUDY (Clear); Bilirubin,Urine Negative (Negative); Blood, Urine Moderate mg/dL (Negative); Glucose,Urine (UA) Negative (Negative); Ketones,Urine Negative (Negative); Nitrite,Urine Negative (Negative); Protein,Urine Negative; Urine Color Yellow (Yellow); Urine Specific Gravity 1.011 (1.001-1.035); Urine Urobilinogen < 2.0 EU/DL (0.2-1.0)
[2017-04-25] MEDS: SCOPOLAMINE 1.5 MG PATCH TRANSDERM SCH (14:40)
[2017-04-25] MEDS: METOPROLOL TARTRATE 25 MG TABLET PO SCH ×2 (14:45→21:27)
[2017-04-25] MEDS: PANTOPRAZOLE 40 MG TABLET PO SCH (14:45)
[2017-04-25] MEDS: MULTIVITAMIN LIQUID (CENTRUM) 60 ML BOTTLE PO SCH (14:54)
[2017-04-26] MEDS: ALBUTEROL/IPRATROPIUM 3 ML NEB RESP TX SCH ×5 (02:40→20:12)
[2017-04-26 05:44] LABS: Basophils % 0.1 % (0.0-0.8); Eosinophils # 0.1 10*3/uL (0.0-0.87); Eosinophils % 0.7 % (0.00-10.9); Hematocrit 34.1 VOL% (42.0-52.0); Immature Granulocytes % 0.9 %; Immature Granulocytes Absolute 0.13 #; Lymphocytes # 0.5 10*3/uL (1.4-4.0); Lymphocytes % 3.6 % (21.2-54.2); Mean Corpuscular HGB Conc 32.3 GM/DL (32-36); Mean Corpuscular Hemoglobin 29 PG (27-34); Mean Corpuscular Volume 90.5 FL (87-102); Monocytes # 1.1 10*3/uL (0.11-0.8); Monocytes % 7.1 % (1.7-12.7); Neutrophils # 12.9 10*3/uL (1.4-7.4); Neutrophils % 87.6 % (38.7-73.9); Platelet Count 129 T/CUMM (130-400); Red Blood Count 3.77 MC/CUMM (3.8-5.5); Red Cell Distribution Width 16.8 % (9.3-17.3); White Blood Count 14.7 T/CUMM (4-12)
[2017-04-26 06:07] LABS: Band Neutrophils 2 % (0-10); Hypochromasia Slight; Lymphocytes 1 % (20-55); Ovalocytes Slight; Platelet Estimate Normal; Segmented Neutrophils 91 % (50-85); Total Cells Counted 100
[2017-04-26 06:08] LABS: Burr Cells Slight; Microcytosis Slight
[2017-04-26 06:24] LABS: Albumin 1.9 G/DL (3.4-5.0); Bilirubin,Total 1.2 MG/DL (0.2-1.0); Calcium 8.4 MG/DL (8.5-10.1); Osmolality,Calculated 299.6 MOS/KG (273-304); Potassium 3.1 MMOL/L (3.5-5.1); Total Protein 5.9 G/DL (6.4-8.3)
[2017-04-26] MEDS: PIPERACILLIN/TAZOBACTAM 3,375 MG in SODIUM CHLORIDE 0.9% 100 ML IV SCH ×3 (06:33→22:16)
--- NOTE | 2017-04-26 07:07 | Oncology Progress Note ---
Oncology Subjective PN Interval history: Mr. Krueger has advanced head and neck cancer that has been refractory to chemotherapy and it is complicated by severe COPD and anemia as well as malnutrition. He was actually admitted with acute dehydration and hypernatremia with a serum sodium of 171. Lab work this morning includes white cell count of 14,700 with a hemoglobin of 11.0 and a platelet count of 129,000. His comprehensive metabolic profile includes a serum potassium of 3.1. He has IV fluids with additives of potassium in it. He has renal failure and his serum creatinine is slowly improving. It is 1.7 today. However, his overall condition is deteriorating. Mr. Krueger is more alert today. He actually spoke to him when I came in the room. Yesterday he was subsequently could not do that. He continues to be dyspneic and tachypneic and he has significant COPD as well as aspiration from his head and neck cancer and because of the fact that he has severe dysphagia and inability to swallow due to the head and neck cancer. On physical examination general: He is acutely ill. Eyes: Normal lids and conjunctivae. ENT: Poor dentition. His oral mucosa is moist. Lungs: Coarse rhonchi and basilar rales. The rhonchi scattered throughout the lung jaquez. Breath sounds are coarse and decreased generally. Cardiovascular: His heart rhythm is regular without murmur, gallop or rub. He has tachycardia. There is no jugular venous distention. Abdomen: PEG tube in place. Minimal tenderness and no distention. Musculoskeletal: Generalized muscle wasting and weakness. He is on IV fluids. We are going to try to start tube feeding him at a low dose. We are going to do bolus feedings of about 250 mL 3 times a day today. We are continuing to check lab work and adjust medications. Exam - Constitutional Vitals: Period Temp Pulse Resp BP Sys/Keith Pulse Ox Last 24 Hr 98.2 F-100.0 F 32-119 17-32 116-138/64-90 92-98 Results - Labs CBC & BMP: 04/26/17 04:03 04/26/17 04:03
[2017-04-26] MEDS: DEXT 5% NACL 0.45% KCL 20 MEQ 20 MEQ/1,000 ML BAG IV SCH (07:17)
[2017-04-26] MEDS: DESITIN 4OZ/NYSTATIN 15 GRAM MIXTURE PASTE TOP SCH ×2 (08:44→22:17)
[2017-04-26] MEDS: MULTIVITAMIN LIQUID (CENTRUM) 60 ML BOTTLE PO SCH (08:45)
[2017-04-26] MEDS: PANTOPRAZOLE 40 MG TABLET PO SCH (08:45)
[2017-04-26] MEDS: METOPROLOL TARTRATE 25 MG TABLET PO SCH ×2 (08:45→22:12)
[2017-04-27] MEDS: MORPHINE 2 MG/1 ML SYRINGE IV PRN (00:04)
[2017-04-27] MEDS: ALBUTEROL/IPRATROPIUM 3 ML NEB RESP TX SCH ×7 (00:19→23:33)
[2017-04-27] MEDS: DEXT 5% NACL 0.45% KCL 20 MEQ 20 MEQ/1,000 ML BAG IV SCH (03:19)
[2017-04-27 05:43] LABS: Basophils % 0.2 % (0.0-0.8); Eosinophils # 0.1 10*3/uL (0.0-0.87); Eosinophils % 0.6 % (0.00-10.9); Hemoglobin 11.1 GM/DL (14.0-18.0); Immature Granulocytes Absolute 0.12 #; Lymphocytes # 0.8 10*3/uL (1.4-4.0); Lymphocytes % 6.5 % (21.2-54.2); Mean Corpuscular HGB Conc 32.6 GM/DL (32-36); Mean Corpuscular Hemoglobin 30 PG (27-34); Mean Corpuscular Volume 91.4 FL (87-102); Mean Platelet Volume 11.7 FL (9.6-12.0); Monocytes # 1.2 10*3/uL (0.11-0.8); Monocytes % 9.6 % (1.7-12.7); Neutrophils # 10.3 10*3/uL (1.4-7.4); Neutrophils % 82.1 % (38.7-73.9); Platelet Count 138 T/CUMM (130-400); Red Blood Count 3.72 MC/CUMM (3.8-5.5); Red Cell Distribution Width 16.5 % (9.3-17.3); White Blood Count 12.5 T/CUMM (4-12)
[2017-04-27 06:05] LABS: Band Neutrophils 1 % (0-10); Lymphocytes 5 % (20-55); Segmented Neutrophils 86 % (50-85); Total Cells Counted 100
[2017-04-27 06:06] LABS: Hypochromasia Slight; Microcytosis Slight; Ovalocytes Slight; Platelet Estimate Normal
[2017-04-27 06:12] LABS: Albumin 1.8 G/DL (3.4-5.0); Bilirubin,Total 0.4 MG/DL (0.2-1.0); Calcium 8.7 MG/DL (8.5-10.1); Osmolality,Calculated 312.7 MOS/KG (273-304); Potassium 2.8 MMOL/L (3.5-5.1); Total Protein 5.9 G/DL (6.4-8.3)
[2017-04-27] MEDS: PIPERACILLIN/TAZOBACTAM 3,375 MG in SODIUM CHLORIDE 0.9% 100 ML IV SCH ×3 (06:31→22:29)
--- NOTE | 2017-04-27 08:47 | Oncology Progress Note ---
Oncology Subjective PN Interval history: Mr. Krueger has advanced carcinoma of the head and neck and was admitted with severe dehydration, hyponatremia with a serum sodium of greater than 171 and with acute renal failure. He was also anemic once he was rehydrated. He has inability to swallow and is aspirating. He has a PEG tube in place but clearly was not receiving adequate hydration at home. Lab work today includes a white cell count 12,500 with a hemoglobin of 11.1 and a platelet count of 138,000. His comprehensive metabolic profile includes a serum potassium of 2.8. His serum creatinine has leveled off at 1.7 with a urea nitrogen of 40. We are going to try to increase his tube feedings. He is developing skin breakdown on his scrotum and his heel. He has underlying COPD and has diffuse rhonchi throughout his lung jaquez. This is complicated by the fact that he has aspiration pneumonia because of inability to swallow. In addition, he is emaciated and cachectic and very very weak. He has a left AKA amputation. His right heel is breaking down. He remains comfort measures only but he has actually modestly improved his overall condition. The hypokalemia has become a new problem as we have rehydrated him and I have adjusted his IV fluid content to include more potassium. Disorders that we are actively following and treating include: Acute dehydration hypernatremia carcinoma of the head and neck anemia emaciation and cachexia aspiration pneumonia hypokalemia anemia Exam - Constitutional Vitals: Period Temp Pulse Resp BP Sys/Keith Pulse Ox Last 24 Hr 97.8 F-100.3 F 95-118 18-26 108-143/57-78 93-99 Results - Labs CBC & BMP: 04/27/17 04:36 04/27/17 04:35
[2017-04-27] MEDS: PANTOPRAZOLE 40 MG TABLET PO SCH (09:01)
[2017-04-27] MEDS: DESITIN 4OZ/NYSTATIN 15 GRAM MIXTURE PASTE TOP SCH ×2 (09:02→22:29)
[2017-04-27] MEDS: METOPROLOL TARTRATE 25 MG TABLET PO SCH ×2 (09:02→20:28)
[2017-04-27] MEDS: MULTIVITAMIN LIQUID (CENTRUM) 60 ML BOTTLE PO SCH (09:07)
[2017-04-27] MEDS: DEXT 5% NACL 0.45% KCL 40 MEQ 40 MEQ/1,000 ML BAG IV SCH (10:27)
[2017-04-28] MEDS: MORPHINE 2 MG/1 ML SYRINGE IV PRN ×2 (00:14→14:55)
[2017-04-28] MEDS: DEXT 5% NACL 0.45% KCL 40 MEQ 40 MEQ/1,000 ML BAG IV SCH (02:56)
[2017-04-28] MEDS: ALBUTEROL/IPRATROPIUM 3 ML NEB RESP TX SCH ×6 (04:11→23:30)
[2017-04-28 06:06] LABS: Basophils % 0.2 % (0.0-0.8); Eosinophils # 0.1 10*3/uL (0.0-0.87); Eosinophils % 0.6 % (0.00-10.9); Hematocrit 31.4 VOL% (42.0-52.0); Immature Granulocytes % 1.1 %; Immature Granulocytes Absolute 0.16 #; Lymphocytes # 0.8 10*3/uL (1.4-4.0); Lymphocytes % 5.1 % (21.2-54.2); Mean Corpuscular HGB Conc 31.8 GM/DL (32-36); Mean Corpuscular Hemoglobin 30 PG (27-34); Mean Corpuscular Volume 93.5 FL (87-102); Mean Platelet Volume 11.8 FL (9.6-12.0); Monocytes # 1.2 10*3/uL (0.11-0.8); Neutrophils # 12.7 10*3/uL (1.4-7.4); Platelet Count 152 T/CUMM (130-400); Red Blood Count 3.36 MC/CUMM (3.8-5.5); White Blood Count 14.9 T/CUMM (4-12)
[2017-04-28 06:27] LABS: Hypochromasia 1+; Microcytosis Slight; Platelet Estimate Normal
[2017-04-28] MEDS: PIPERACILLIN/TAZOBACTAM 3,375 MG in SODIUM CHLORIDE 0.9% 100 ML IV SCH ×3 (06:33→22:47)
[2017-04-28 06:34] LABS: Albumin 1.6 G/DL (3.4-5.0); Bilirubin,Total 0.5 MG/DL (0.2-1.0); Calcium 8.1 MG/DL (8.5-10.1); Osmolality,Calculated 321.2 MOS/KG (273-304); Potassium 3.1 MMOL/L (3.5-5.1); Total Protein 5.3 G/DL (6.4-8.3)
--- NOTE | 2017-04-28 07:37 | Oncology Progress Note ---
Oncology Subjective PN Interval history: Disorders that we are actively following and treating include: Acute dehydration The dehydration is improving gradually. He is continuing IV fluids and we are increasing his PEG tube feedings. He remains to be seen whether or not we can adequately hydrate him however. hypernatremia His serum sodium has risen slightly to 156 today. We are increasing his PEG tube feedings. 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 He is too debilitated now to consider further chemotherapy or even targeted therapy. He has finished radiation therapy and we will simply monitor him for now and try to get him out with adequate liquid intake to prevent dehydration. emaciation and cachexia We are increasing his caloric intake but I am not optimistic that we can make his emaciation much better. We have had a great deal of difficulty getting in adequate amounts of calories. aspiration pneumonia He continues to have aspiration pneumonia but today his lungs are surprisingly clear. His heart sounds are normal also. hypokalemia His serum potassium is gradually improving. anemia He does not need transfusion presently with the degree of anemia. We will continue to check lab including CBC. confusion He is not fully oriented and alert. On physical examination he appears acutely and chronically ill. He has normal lids and conjunctivae. His oral mucosa is moist. His teeth are in poor repair. He has scattered rhonchi throughout his lung jaquez without rales presently. His heart sounds are normal and he actually has slight bradycardia. He has no abdominal distention or ascites and minimal tenderness at the PEG tube site. Cranial nerves II through XII are intact. Exam - Constitutional Vitals: Period Temp Pulse Resp BP Sys/Keith Pulse Ox Last 24 Hr 98.5 F-99.8 F 89-123 18-28 112-143/51-73 89-98 Results - Labs CBC & BMP: 04/28/17 04:37 04/28/17 04:37
[2017-04-28] MEDS: METOPROLOL TARTRATE 25 MG TABLET PO SCH ×2 (09:15→21:27)
[2017-04-28] MEDS: SCOPOLAMINE 1.5 MG PATCH TRANSDERM SCH (09:15)
[2017-04-28] MEDS: PANTOPRAZOLE 40 MG TABLET PO SCH (09:15)
[2017-04-28] MEDS: DESITIN 4OZ/NYSTATIN 15 GRAM MIXTURE PASTE TOP SCH ×2 (09:17→21:35)
[2017-04-28] MEDS: MULTIVITAMIN LIQUID (CENTRUM) 60 ML BOTTLE PO SCH (09:18)
[2017-04-28] MEDS: POTASSIUM CHLORIDE INJ 40 MEQ in DEXTROSE 5% 1,000 ML IV SCH (10:53)
[2017-04-28] MEDS: ACETAMINOPHEN 325 MG TABLET PO PRN (21:27)
[2017-04-29] MEDS: POTASSIUM CHLORIDE INJ 40 MEQ in DEXTROSE 5% 1,000 ML IV SCH ×3 (02:11→20:46)
[2017-04-29] MEDS: ALBUTEROL/IPRATROPIUM 3 ML NEB RESP TX SCH ×5 (04:05→20:14)
[2017-04-29 06:22] LABS: Basophils % 0.2 % (0.0-0.8); Eosinophils # 0.2 10*3/uL (0.0-0.87); Eosinophils % 1.1 % (0.00-10.9); Hematocrit 31.5 VOL% (42.0-52.0); Hemoglobin 9.8 GM/DL (14.0-18.0); Immature Granulocytes % 1.1 %; Immature Granulocytes Absolute 0.18 #; Lymphocytes # 0.8 10*3/uL (1.4-4.0); Lymphocytes % 4.5 % (21.2-54.2); Mean Corpuscular HGB Conc 31.1 GM/DL (32-36); Mean Corpuscular Hemoglobin 29 PG (27-34); Mean Platelet Volume 11.8 FL (9.6-12.0); Monocytes # 0.8 10*3/uL (0.11-0.8); Monocytes % 4.7 % (1.7-12.7); Neutrophils # 14.8 10*3/uL (1.4-7.4); Neutrophils % 88.4 % (38.7-73.9); Platelet Count 178 T/CUMM (130-400); Red Blood Count 3.35 MC/CUMM (3.8-5.5); Red Cell Distribution Width 17.2 % (9.3-17.3); White Blood Count 16.7 T/CUMM (4-12)
[2017-04-29] MEDS: PIPERACILLIN/TAZOBACTAM 3,375 MG in SODIUM CHLORIDE 0.9% 100 ML IV SCH ×3 (06:50→22:29)
[2017-04-29 06:55] LABS: Albumin 1.6 G/DL (3.4-5.0); Bilirubin,Total 0.4 MG/DL (0.2-1.0); Calcium 7.8 MG/DL (8.5-10.1); Osmolality,Calculated 313.4 MOS/KG (273-304); Potassium 3.4 MMOL/L (3.5-5.1); Total Protein 5.3 G/DL (6.4-8.3)
[2017-04-29 07:10] LABS: Eosinophils 2 % (0-10); Lymphocytes 3 % (20-55); Segmented Neutrophils 91 % (50-85); Total Cells Counted 100
[2017-04-29 07:11] LABS: Hypochromasia 1+; Microcytosis Slight; Ovalocytes Slight; Platelet Estimate Adequate
--- NOTE | 2017-04-29 09:28 | Oncology Progress Note ---
Oncology Subjective PN Interval history: Acute dehydration The dehydration is improving gradually. He is continuing IV fluids and we are increasing his PEG tube feedings. He remains to be seen whether or not we can adequately hydrate him however.Serum creatinine is stable at 1.4 with a urea nitrogen of 30. hypernatremia His serum sodium has risen slightly to 154 today. We are increasing his PEG tube feedings. carcinoma of the head and neck He does not seem to have gained any significant benefit from the chemotherapy he is received. He is too debilitated now to consider further chemotherapy or even targeted therapy. He has finished radiation therapy and we will simply monitor him for now and try to get him out with adequate liquid intake to prevent dehydration. emaciation and cachexia We are increasing his caloric intake but I am not optimistic that we can make his emaciation much better. We have had a great deal of difficulty getting in adequate amounts of calories. aspiration pneumonia He continues to have aspiration pneumonia but today his lungs are surprisingly clear. His heart sounds are normal also. hypokalemia His serum potassium is gradually improving.Serum potassium today is 3.4 anemia He does not need transfusion presently with the degree of anemia. We will continue to check lab including CBC.Hemoglobin today is 9.8 with a normal platelet count and a high white cell count 16,700. confusion He is not fully oriented and alert. . Exam - Constitutional Vitals: Period Temp Pulse Resp BP Sys/Keith Pulse Ox Last 24 Hr 97.6 F-99.0 F 83-104 18-24 102-129/58-68 92-99 Results - Labs CBC & BMP: 04/29/17 04:00 04/29/17 04:00
[2017-04-29] MEDS: PANTOPRAZOLE 40 MG TABLET PO SCH (09:40)
[2017-04-29] MEDS: METOPROLOL TARTRATE 25 MG TABLET PO SCH (09:40)
[2017-04-29] MEDS: MULTIVITAMIN LIQUID (CENTRUM) 60 ML BOTTLE PO SCH (09:41)
[2017-04-29] MEDS: DESITIN 4OZ/NYSTATIN 15 GRAM MIXTURE PASTE TOP SCH ×2 (09:44→20:46)
[2017-04-30] MEDS: ALBUTEROL/IPRATROPIUM 3 ML NEB RESP TX SCH ×6 (00:17→19:37)
[2017-04-30] MEDS: METOPROLOL TARTRATE 25 MG TABLET PO SCH ×3 (04:45→22:30)
[2017-04-30 05:16] LABS: Basophils % 0.1 % (0.0-0.8); Eosinophils # 0.2 10*3/uL (0.0-0.87); Eosinophils % 1.5 % (0.00-10.9); Hematocrit 29.1 VOL% (42.0-52.0); Hemoglobin 9.3 GM/DL (14.0-18.0); Immature Granulocytes % 1.3 %; Immature Granulocytes Absolute 0.19 #; Lymphocytes # 0.9 10*3/uL (1.4-4.0); Lymphocytes % 5.8 % (21.2-54.2); Mean Corpuscular Hemoglobin 30 PG (27-34); Mean Corpuscular Volume 93.6 FL (87-102); Mean Platelet Volume 11.5 FL (9.6-12.0); Monocytes # 0.6 10*3/uL (0.11-0.8); Monocytes % 3.9 % (1.7-12.7); Neutrophils # 12.9 10*3/uL (1.4-7.4); Neutrophils % 87.4 % (38.7-73.9); Platelet Count 179 T/CUMM (130-400); Red Blood Count 3.11 MC/CUMM (3.8-5.5); Red Cell Distribution Width 16.9 % (9.3-17.3); White Blood Count 14.8 T/CUMM (4-12)
[2017-04-30] MEDS: POTASSIUM CHLORIDE INJ 40 MEQ in DEXTROSE 5% 1,000 ML IV SCH ×3 (05:47→22:17)
[2017-04-30 05:55] LABS: Albumin 1.6 G/DL (3.4-5.0); Bilirubin,Total 0.5 MG/DL (0.2-1.0); Calcium 8.3 MG/DL (8.5-10.1); Osmolality,Calculated 304.9 MOS/KG (273-304); Potassium 3.3 MMOL/L (3.5-5.1); Total Protein 5.1 G/DL (6.4-8.3)
[2017-04-30 05:56] LABS: Band Neutrophils 3 % (0-10); Lymphocytes 5 % (20-55); Segmented Neutrophils 89 % (50-85); Total Cells Counted 100
[2017-04-30 05:57] LABS: Hypochromasia Slight; Platelet Estimate Normal
[2017-04-30] MEDS: PIPERACILLIN/TAZOBACTAM 3,375 MG in SODIUM CHLORIDE 0.9% 100 ML IV SCH ×3 (06:31→22:19)
[2017-04-30] MEDS: DESITIN 4OZ/NYSTATIN 15 GRAM MIXTURE PASTE TOP SCH ×2 (09:16→22:21)
[2017-04-30] MEDS: PANTOPRAZOLE 40 MG TABLET PO SCH (09:16)
[2017-04-30] MEDS: MULTIVITAMIN LIQUID (CENTRUM) 60 ML BOTTLE PO SCH (09:16)
--- NOTE | 2017-04-30 09:32 | Oncology Progress Note ---
Oncology Subjective PN Interval history: Acute dehydration The dehydration is improving gradually. He is continuing IV fluids and we are increasing his PEG tube feedings. He remains to be seen whether or not we can adequately hydrate him however. His serum creatinine today is 1.2. This is normal for the first time. hypernatremia His serum sodium is 151 today, down from 154 yesterday. carcinoma of the head and neck He does not seem to have gained any significant benefit from the chemotherapy he is received. He is too debilitated now to consider further chemotherapy or even targeted therapy. He has finished radiation therapy and we will simply monitor him for now and try to get him out with adequate liquid intake to prevent dehydration. The damage from prior surgery as well as from radiation has resulted in severe and swallowing. emaciation and cachexia We are increasing his caloric intake but I am not optimistic that we can make his emaciation much better. We have had a great deal of difficulty getting in adequate amounts of calories.He has a low serum albumin of 1.6 reflecting malnutrition.His transaminases and alkaline phosphatase and LDH are normal. He has a PEG tube in place but I am really concerned about the possibility of his family not being able to manage PEG tube feedings. I think that he was admitted because his significant other did not understand the importance of adequate liquid intake. He is having diarrhea and we are going to try to adjust his tube feedings in case this is lactose intolerance. aspiration pneumonia He continues to have aspiration pneumonia but today his lungs are surprisingly clear. His heart sounds are normal also. He has very coarse breath sounds with scattered rhonchi throughout the lung jaquez. I do not think his pulmonary congestion will ever completely clear because he has lost a great deal of mechanical function in his pharynx and laryngeal region due to the previous surgeries and radiation therapy. hypokalemia His serum potassium is still low at 3.3. anemia He does not need transfusion presently with the degree of anemia. We will continue to check lab including CBC.His hemoglobin today is 9.3, down from 9.8 yesterday. Exam - Constitutional Vitals: Period Temp Pulse Resp BP Sys/Keith Pulse Ox Last 24 Hr 97.7 F-99.0 F 77-114 18-22 109-120/55-66 90-99 Results - Labs CBC & BMP: 04/30/17 04:23 04/30/17 04:23
[2017-05-01] MEDS: ALBUTEROL/IPRATROPIUM 3 ML NEB RESP TX SCH ×7 (00:21→23:41)
[2017-05-01 05:43] LABS: Basophils % 0.3 % (0.0-0.8); Eosinophils # 0.2 10*3/uL (0.0-0.87); Eosinophils % 1.6 % (0.00-10.9); Hemoglobin 9.3 GM/DL (14.0-18.0); Immature Granulocytes % 0.8 %; Immature Granulocytes Absolute 0.12 #; Lymphocytes # 0.9 10*3/uL (1.4-4.0); Lymphocytes % 6.4 % (21.2-54.2); Mean Corpuscular HGB Conc 32.1 GM/DL (32-36); Mean Corpuscular Hemoglobin 30 PG (27-34); Mean Corpuscular Volume 93.9 FL (87-102); Mean Platelet Volume 11.4 FL (9.6-12.0); Monocytes # 0.5 10*3/uL (0.11-0.8); Monocytes % 3.3 % (1.7-12.7); Neutrophils # 12.5 10*3/uL (1.4-7.4); Neutrophils % 87.6 % (38.7-73.9); Platelet Count 204 T/CUMM (130-400); Red Blood Count 3.09 MC/CUMM (3.8-5.5); Red Cell Distribution Width 16.7 % (9.3-17.3); White Blood Count 14.3 T/CUMM (4-12)
[2017-05-01] MEDS: PIPERACILLIN/TAZOBACTAM 3,375 MG in SODIUM CHLORIDE 0.9% 100 ML IV SCH ×3 (06:13→21:53)
[2017-05-01 06:22] LABS: Albumin 1.5 G/DL (3.4-5.0); Bilirubin,Total 0.6 MG/DL (0.2-1.0); Magnesium 2.1 MG/DL (1.8-2.4); Osmolality,Calculated 295.3 MOS/KG (273-304); Osmolality,Calculated 296.3 MOS/KG (273-304); Phosphorous 2.9 MG/DL (2.5-4.9); Potassium 3.4 MMOL/L (3.5-5.1); Prealbumin 10.1 MG/DL (20-40); Total Protein 5.3 G/DL (6.4-8.3)
[2017-05-01 06:37] LABS: Hypochromasia Slight; Microcytosis Slight
[2017-05-01] MEDS: POTASSIUM CHLORIDE INJ 40 MEQ in DEXTROSE 5% 1,000 ML IV SCH (07:01)
--- NOTE | 2017-05-01 07:40 | Oncology Progress Note ---
Oncology Subjective PN Interval history: Acute dehydration The dehydration is improving gradually. He is continuing IV fluids and we are increasing his PEG tube feedings. He remains to be seen whether or not we can adequately hydrate him however. His serum creatinine today is 1.2. This is normal for the first time. hypernatremia His serum sodium is 148 today. carcinoma of the head and neck He does not seem to have gained any significant benefit from the chemotherapy he is received. He is too debilitated now to consider further chemotherapy or even targeted therapy. He has finished radiation therapy and we will simply monitor him for now and try to get him out with adequate liquid intake to prevent dehydration. The damage from prior surgery as well as from radiation has resulted in severe and swallowing. emaciation and cachexia We are increasing his caloric intake but I am not optimistic that we can make his emaciation much better. We have had a great deal of difficulty getting in adequate amounts of calories.He has a low serum albumin of 1.6 reflecting malnutrition.His transaminases and alkaline phosphatase and LDH are normal. He has a PEG tube in place but I am really concerned about the possibility of his family not being able to manage PEG tube feedings. I think that he was admitted because his significant other did not understand the importance of adequate liquid intake. He is having diarrhea and we are going to try to adjust his tube feedings in case this is lactose intolerance. She continues to have a significant amount of diarrhea and we are still working on this. aspiration pneumonia He continues to have aspiration pneumonia but today his lungs are surprisingly clear. His heart sounds are normal also. He has very coarse breath sounds with scattered rhonchi throughout the lung jaquez. I do not think his pulmonary congestion will ever completely clear because he has lost a great deal of mechanical function in his pharynx and laryngeal region due to the previous surgeries and radiation therapy. hypokalemia His serum potassium is still low at 3.4. anemia He does not need transfusion presently with the degree of anemia. Blood work today includes a white cell count of 14,300 with a hemoglobin of 9.3 and a platelet count of 204,000. COPD: He has been on scopolamine and I am stopping it. I do not know whether this is making his COPD worse or better. Hypertension: His blood pressure is running low. He is on a beta-alphonse and I am discontinuing it because it could aggravate his COPD. Exam - Constitutional Vitals: Period Temp Pulse Resp BP Sys/Keith Pulse Ox Last 24 Hr 97.7 F-98.4 F 70-99 18-20 107-120/53-70 95-99 Results - Labs CBC & BMP: 05/01/17 04:25 05/01/17 04:25
[2017-05-01] MEDS: DESITIN 4OZ/NYSTATIN 15 GRAM MIXTURE PASTE TOP SCH ×2 (08:58→21:55)
[2017-05-01] MEDS: PANTOPRAZOLE 40 MG TABLET PO SCH (08:58)
[2017-05-01] MEDS: MULTIVITAMIN LIQUID (CENTRUM) 60 ML BOTTLE PO SCH (08:58)
[2017-05-01] MEDS: LORazepam 2 MG/1 ML VIAL IV PRN (10:27)
[2017-05-01] MEDS ORDERED: HEPARIN LOCK FLUSH 500 UNIT/5 ML SYRINGE IV ONE (14:02)
[2017-05-02] MEDS: ALBUTEROL/IPRATROPIUM 3 ML NEB RESP TX SCH ×6 (02:53→23:00)
[2017-05-02] MEDS: PIPERACILLIN/TAZOBACTAM 3,375 MG in SODIUM CHLORIDE 0.9% 100 ML IV SCH (05:45)
[2017-05-02] MEDS: POTASSIUM CHLORIDE INJ 40 MEQ in DEXTROSE 5% 1,000 ML IV SCH ×3 (05:45→22:03)
[2017-05-02 06:14] LABS: Basophils % 0.2 % (0.0-0.8); Eosinophils # 0.2 10*3/uL (0.0-0.87); Eosinophils % 1.6 % (0.00-10.9); Hematocrit 28.8 VOL% (42.0-52.0); Hemoglobin 9.2 GM/DL (14.0-18.0); Immature Granulocytes % 0.9 %; Immature Granulocytes Absolute 0.11 #; Lymphocytes # 0.8 10*3/uL (1.4-4.0); Lymphocytes % 6.1 % (21.2-54.2); Mean Corpuscular HGB Conc 31.9 GM/DL (32-36); Mean Corpuscular Hemoglobin 30 PG (27-34); Mean Corpuscular Volume 93.8 FL (87-102); Mean Platelet Volume 11.2 FL (9.6-12.0); Monocytes # 0.5 10*3/uL (0.11-0.8); Monocytes % 4.4 % (1.7-12.7); Neutrophils # 10.7 10*3/uL (1.4-7.4); Neutrophils % 86.8 % (38.7-73.9); Platelet Count 222 T/CUMM (130-400); Red Blood Count 3.07 MC/CUMM (3.8-5.5); Red Cell Distribution Width 16.2 % (9.3-17.3); White Blood Count 12.4 T/CUMM (4-12)
[2017-05-02 06:39] LABS: Hypochromasia 1+; Lymphocytes 3 % (20-55); Platelet Estimate Adequate; Segmented Neutrophils 93 % (50-85); Total Cells Counted 100
[2017-05-02 06:45] LABS: Albumin 1.6 G/DL (3.4-5.0); Bilirubin,Total 0.8 MG/DL (0.2-1.0); Calcium 8.1 MG/DL (8.5-10.1); Osmolality,Calculated 290.7 MOS/KG (273-304); Potassium 3.7 MMOL/L (3.5-5.1); Total Protein 5.1 G/DL (6.4-8.3)
--- NOTE | 2017-05-02 07:14 | Oncology Progress Note ---
Oncology Subjective PN Interval history: Acute dehydration The dehydration is improving gradually. He is continuing IV fluids and we are increasing his PEG tube feedings. He remains to be seen whether or not we can adequately hydrate him however. His serum creatinine today is 1.1. This is normal for the first time. hypernatremia: He was admitted with a serum sodium of greater than 171. His serum sodium is 145 today. carcinoma of the head and neck He does not seem to have gained any significant benefit from the chemotherapy he has received. He is too debilitated now to consider further chemotherapy or even targeted therapy. He has finished radiation therapy and we are monitoring him for now and will try to get him out with adequate liquid intake to prevent dehydration. The damage from prior surgery as well as from radiation have resulted in severe and swallowing. emaciation and cachexia We are increasing his caloric intake but I am not optimistic that we can make his emaciation much better. We have had a great deal of difficulty getting in adequate amounts of calories.He has a low serum albumin of 1.6 reflecting malnutrition.His transaminases and alkaline phosphatase and LDH are normal. He has a PEG tube in place but I am really concerned about the possibility of his family not being able to manage PEG tube feedings. I think that he was admitted because his significant other did not understand the importance of adequate liquid intake. He is having diarrhea and we are going to try to adjust his tube feedings in case this is lactose intolerance. She continues to have a significant amount of diarrhea and we are still working on this. aspiration pneumonia He continues to have problems with aspiration pneumonia but I am discontinuing Zosyn today. He has been on it since April 23. Today his breath sounds are coarse with scattered rhonchi here very few rales. His heart sounds are normal also. I do not think his pulmonary congestion will ever completely clear because he has lost a great deal of mechanical function in his pharynx and laryngeal region due to the previous surgeries and radiation therapy. hypokalemia His serum potassium is still low at 3.7. anemia He does not need transfusion presently with the degree of anemia. Blood work today includes a hemoglobin of 9.2. White cell count and platelet count are normal. Exam - Constitutional Vitals: Period Temp Pulse Resp BP Sys/Keith Pulse Ox Last 24 Hr 97.6 F-98.6 F 66-102 18-32 93-141/56-67 93-99 Results - Labs CBC & BMP: 05/02/17 04:36 05/02/17 04:36
[2017-05-02] MEDS: guaiFENesin 200 MG/10 ML UDCUP PO PRN ×2 (08:15→17:42)
[2017-05-02] MEDS: MULTIVITAMIN LIQUID (CENTRUM) 60 ML BOTTLE PO SCH (08:15)
[2017-05-02] MEDS: PANTOPRAZOLE 40 MG TABLET PO SCH (08:15)
[2017-05-02] MEDS: DESITIN 4OZ/NYSTATIN 15 GRAM MIXTURE PASTE TOP SCH ×2 (08:15→21:09)
[2017-05-03] MEDS: ALBUTEROL/IPRATROPIUM 3 ML NEB RESP TX SCH ×5 (03:09→19:10)
[2017-05-03] MEDS: MORPHINE 2 MG/1 ML SYRINGE IV PRN ×5 (04:15→22:45)
[2017-05-03 05:16] LABS: Basophils % 0.1 % (0.0-0.8); Eosinophils # 0.1 10*3/uL (0.0-0.87); Eosinophils % 0.3 % (0.00-10.9); Hematocrit 32.3 VOL% (42.0-52.0); Hemoglobin 10.5 GM/DL (14.0-18.0); Immature Granulocytes % 0.9 %; Immature Granulocytes Absolute 0.22 #; Lymphocytes # 0.7 10*3/uL (1.4-4.0); Lymphocytes % 2.8 % (21.2-54.2); Mean Corpuscular HGB Conc 32.5 GM/DL (32-36); Mean Corpuscular Hemoglobin 30 PG (27-34); Mean Corpuscular Volume 92.3 FL (87-102); Mean Platelet Volume 11.1 FL (9.6-12.0); Monocytes # 0.7 10*3/uL (0.11-0.8); Monocytes % 2.8 % (1.7-12.7); Neutrophils # 22.2 10*3/uL (1.4-7.4); Neutrophils % 93.1 % (38.7-73.9); Platelet Count 267 T/CUMM (130-400); White Blood Count 23.9 T/CUMM (4-12)
[2017-05-03 05:49] LABS: Albumin 1.9 G/DL (3.4-5.0); Bilirubin,Total 1.3 MG/DL (0.2-1.0); Calcium 8.6 MG/DL (8.5-10.1); Osmolality,Calculated 276.7 MOS/KG (273-304); Potassium 4.2 MMOL/L (3.5-5.1); Total Protein 6.1 G/DL (6.4-8.3)
[2017-05-03 05:57] LABS: Band Neutrophils 1 % (0-10); Hypochromasia 1+; Lymphocytes 4 % (20-55); Segmented Neutrophils 93 % (50-85); Total Cells Counted 100
[2017-05-03 05:58] LABS: Microcytosis 1+; Platelet Estimate Normal
--- NOTE | 2017-05-03 08:07 | Oncology Progress Note ---
Oncology Subjective PN Interval history: Acute dehydration The dehydration is improving gradually. He is continuing IV fluids and we are increasing his PEG tube feedings. He remains to be seen whether or not we can adequately hydrate him however. His serum creatinine today is 1.0. This is normal for the first time. hypernatremia: He was admitted with a serum sodium of greater than 171. His serum sodium is 138 today. carcinoma of the head and neck He does not seem to have gained any significant benefit from the chemotherapy he has received. He is too debilitated now to consider further chemotherapy or even targeted therapy. He has finished radiation therapy and we are monitoring him for now and will try to get him out with adequate liquid intake to prevent dehydration. The damage from prior surgery as well as from radiation have resulted in severe and swallowing. emaciation and cachexia We are increasing his caloric intake but I am not optimistic that we can make his emaciation much better. We have had a great deal of difficulty getting in adequate amounts of calories.He has a low serum albumin of 1.9 reflecting malnutrition.His transaminases and alkaline phosphatase and LDH are normal. He has a PEG tube in place but I am really concerned about the possibility of his family not being able to manage PEG tube feedings. I think that he was admitted because his significant other did not understand the importance of adequate liquid intake. He is having diarrhea and we are going to try to adjust his tube feedings in case this is lactose intolerance. She continues to have a significant amount of diarrhea and we are still working on this. aspiration pneumonia He continues to have problems with aspiration pneumonia. He has been on it since April 23. Today his breath sounds are coarse with louder, diffuse rhonchi than yesterday. His heart sounds are normal also. I do not think his pulmonary congestion will ever completely clear because he has lost a great deal of mechanical function in his pharynx and laryngeal region due to the previous surgeries and radiation therapy. hypokalemia His serum potassium is still low at 3.7. anemia He does not need transfusion presently with the degree of anemia. Blood work today includes a hemoglobin of 10.5. White cell count and platelet count are normal. His platelet count is 267,000. Exam - Constitutional Vitals: Period Temp Pulse Resp BP Sys/Keith Pulse Ox Last 24 Hr 98.1 F-99.2 F 90-124 18-52 116-136/53-92 92-99 Results - Labs CBC & BMP: 05/03/17 04:43 05/03/17 04:43
--- NOTE | 2017-05-03 09:30 | XRay Report ---
Exam: XR chest 1V portable Indication: Pulmonary congestion Comparison study: Prior chest radiograph 04/24/2017 Findings: The heart, mediastinum and bony structures are stable from prior. There is been slight worsening of perihilar and basilar interstitial opacities suggesting developing pulmonary edema changes. Minimal basilar atelectasis and/or infectious/inflammatory infiltrates are not entirely excluded. There is no significant pleural effusion or pneumothorax. Right-sided Mediport and catheter are in similar positions. Osseous structures appear stable. Impression: Slight worsening of perihilar and basilar interstitial and airspace opacities suggesting interstitial edema changes and/or underlying atelectasis. Developing infectious/inflammatory infiltrates cannot be entirely excluded. Continued follow-up is recommended. PROCEDURE INTERPRETED AT [facility] DEPARTMENT OF RADIOLOGY Final Report Signed by: Nicholas Connolly
[2017-05-03] MEDS: DESITIN 4OZ/NYSTATIN 15 GRAM MIXTURE PASTE TOP SCH (09:38)
[2017-05-03] MEDS: PANTOPRAZOLE 40 MG TABLET PO SCH (09:38)
[2017-05-03] MEDS: MULTIVITAMIN LIQUID (CENTRUM) 60 ML BOTTLE PO SCH (09:38)
[2017-05-03] MEDS: POTASSIUM CHLORIDE INJ 40 MEQ in DEXTROSE 5% 1,000 ML IV SCH (12:32)
[2017-05-03] MEDS ORDERED: FUROSEMIDE 40 MG/4 ML VIAL IV SCH (16:00)
[2017-05-04] MEDS: ALBUTEROL/IPRATROPIUM 3 ML NEB RESP TX SCH ×2 (00:02→03:57)
[2017-05-04] MEDS: MORPHINE 2 MG/1 ML SYRINGE IV PRN (00:57)
[2017-05-04] MEDS: LORazepam 2 MG/1 ML VIAL IV PRN (03:52)
[2017-05-04 04:25] VITALS: BP 108/54
[2017-05-04] MEDS: DESITIN 4OZ/NYSTATIN 15 GRAM MIXTURE PASTE TOP SCH (04:51)
[2017-05-04 05:32] LABS: Basophils % 0.1 % (0.0-0.8); Hematocrit 31.8 VOL% (42.0-52.0); Hemoglobin 10.2 GM/DL (14.0-18.0); Immature Granulocytes % 0.3 %; Immature Granulocytes Absolute 0.04 #; Lymphocytes # 0.3 10*3/uL (1.4-4.0); Lymphocytes % 2.7 % (21.2-54.2); Mean Corpuscular HGB Conc 32.1 GM/DL (32-36); Mean Corpuscular Hemoglobin 30 PG (27-34); Mean Corpuscular Volume 94.4 FL (87-102); Mean Platelet Volume 10.8 FL (9.6-12.0); Monocytes # 0.3 10*3/uL (0.11-0.8); Monocytes % 2.5 % (1.7-12.7); Neutrophils # 10.9 10*3/uL (1.4-7.4); Neutrophils % 94.4 % (38.7-73.9); Platelet Count 279 T/CUMM (130-400); Red Blood Count 3.37 MC/CUMM (3.8-5.5); Red Cell Distribution Width 15.9 % (9.3-17.3); White Blood Count 11.6 T/CUMM (4-12)
[2017-05-04 05:58] LABS: Band Neutrophils 14 % (0-10); Lymphocytes 2 % (20-55); Platelet Estimate Adequate; Segmented Neutrophils 81 % (50-85); Total Cells Counted 100
[2017-05-04 05:59] LABS: Hypochromasia Slight; Microcytosis 1+
[2017-05-04 06:18] LABS: Albumin 1.8 G/DL (3.4-5.0); Bilirubin,Total 0.5 MG/DL (0.2-1.0); Calcium 8.7 MG/DL (8.5-10.1); Osmolality,Calculated 281.4 MOS/KG (273-304); Potassium 5.7 MMOL/L (3.5-5.1); Total Protein 5.9 G/DL (6.4-8.3)
[2017-05-04 06:19] LABS: Magnesium 1.6 MG/DL (1.8-2.4); Phosphorous 3.2 MG/DL (2.5-4.9); Prealbumin 10.5 MG/DL (20-40)
--- NOTE | 2017-05-04 06:40 | Oncology Progress Note ---
Oncology Subjective PN Interval history: Note: The patient as I was in the progress of dictating this note. See discharge summary. Acute dehydration hypernatremia: He was admitted with a serum sodium of greater than 171. Laryngeal carcinoma, recurrent emaciation and cachexia aspiration pneumonia hypokalemia anemia Exam - Constitutional Vitals: Period Temp Pulse Resp BP Sys/Keith Pulse Ox Last 24 Hr 96.9 F-100.2 F 100-146 20-52 100-141/49-79 79-98 Results - Labs CBC & BMP: 05/04/17 04:00 05/04/17 04:00
--- NOTE | 2017-05-04 07:52 | Discharge Summary ---
Hospital Course - Hospital Course Hospital Course: Acute dehydration hypernatremia: He was admitted with a serum sodium of greater than 171. Laryngeal carcinoma, recurrent emaciation and cachexia aspiration pneumonia hypokalemia anemia This 81-year-old man who had been treated with chemotherapy and with radiation therapy for recurrent carcinoma of the larynx was admitted with severe hypernatremia with a serum sodium of greater than 171. He was acutely ill with a serum creatinine of 2.6 and a urea nitrogen of 121. He had chronic aspiration because he had previously had surgery as well as radiation to his larynx and this disrupted normal laryngeal and swallowing muscle function. His serum potassium was normal on admission but it dropped with rehydration. We treated the patient for pneumonia secondary to aspiration. The patient was not really a candidate for any more radiation or chemotherapy and our goal was to treat his pneumonia and to get him home on hospice but he remained on IV antibiotics until the day prior to his demise. He continued to chronically aspirated we could not prevent this. He ultimately this morning as result of his laryngeal carcinoma and its complications. Discharge Plan - Discharge Data Disposition: - Discharge Medications No Action Metoprolol Tartrate Tab [Lopressor Tab] 25 mg PO BID #60 tablet - Follow Up or Referral - Forms/Instructions Exam - Constitutional Vitals: Period Temp Pulse Resp BP Sys/Keith Pulse Ox Last 24 Hr 96.9 F-100.2 F 100-146 20-48 100-141/49-70 79-98 Discharge Results Labs on day of discharge: Labs from last 24 hours 05/04/17 05/04/17 05/04/17 04:00 04:00 04:00 WBC 11.6 D RBC 3.37 L Hgb 10.2 L Hct 31.8 L MCV 94.4 MCH 30 MCHC 32.1 RDW 15.9 Plt Count 279 MPV 10.8 Neut % (Auto) 94.4 H Lymph % (Auto) 2.7 L Grundy % (Auto) 2.5 Eos % (Auto) 0.0 Baso % (Auto) 0.1 Neut # (Auto) 10.9 H Lymph # (Auto) 0.3 L Grundy # (Auto) 0.3 Eos # (Auto) 0.0 Baso # (Auto) 0.0 Total Counted 100 Immature Gran % 0.3 Nucleated RBC % 0.0 Immature Gran # 0.04 Segmented Neutrophils 81 Band Neutrophils 14 H Lymphocytes 2 L Monocytes 3 Nucleated RBCs # 0.00 Platelet Estimate Adequate Hypochromasia Slight Microcytosis 1+ Morphology Comment Sodium 140 Potassium 5.7 H Chloride 108 H Carbon Dioxide 24 Anion Gap 13.7 BUN 22 H Creatinine 1.80 H GFR Calculation 37 BUN/Creatinine Ratio 12.00 Glucose 90 Calculated Osmolality 281.4 Calcium 8.7 Phosphorus 3.2 Magnesium 1.6 L Total Bilirubin 0.50 AST 26 ALT 24 Alkaline Phosphatase 80 Total Protein 5.9 L Albumin 1.8 L Globulin 4.1 H Albumin/Globulin Ratio 0.4 L Prealbumin 10.5 L DS: Provider Date of admission: 04/20/17 08:07 Primary care physician: Soy Larson MD Attending physician on admission: Jesus Unger MD Consults: 04/20/17 06:33 Consult to Case Mgmt/Social Srvs [CONS] Routine Reason for Case Mgmt/Social Srvs: Rehab Hospice Referral 04/20/17 07:03 Consult to Dietitian [CONS] Routine Reason for Dietitian: Dietary Consult 04/24/17 08:30 Consult to Dietitian [CONS] Routine Reason for Dietitian: Dietary Consult Consult Comment: assist with tube feeds/clear liquids through tube? 04/30/17 12:01 Consult to Dietitian [CONS] Routine Reason for Dietitian: Dietary Consult Consult Comment: request ways to decrease milk intake on feedings Discharging clinician: Jesus Unger MD
== END 2017-05-04 05:35 | disposition expired | DRG 682 ==
LOC: N.ED 03:47 → N.EDINP 03:47 → N.4E 06:10
PROVIDERS: ADMIT Specialist; ATTEND Specialist